=== PATIENT | female | born 1940 | race Caucasian/White ===

== ENCOUNTER 2020-09-04 09:22 | Inpatient (IN) ==
[2020-09-04 09:55] LABS: Basophils # (auto) 0.01 K/uL (0-0.2); Basophils % (auto) 0.1 %; Eosinophils # (auto) 0.04 K/uL (0-0.5); Eosinophils % (auto) 0.5 %; Hematocrit (blood only) 33.6 % (37-47); Immature Granulocytes # (auto) 0.02 K/uL (0.00-0.02); Immature Granulocytes % (auto) 0.3 %; Lymphocytes # (auto) 1.45 K/uL (1.2-3.4); Lymphocytes % (auto) 18.4 %; Mean Corpuscular Hemoglobin 26.8 pg (25-34); Mean Corpuscular Hgb Conc 32.7 g/dL (32-36); Mean Platelet Volume 9.5 fL (7.4-10.4); Monocytes # (auto) 0.59 K/uL (0.11-0.59); Monocytes % (auto) 7.5 %; Neutrophils # (auto) 5.78 K/uL (1.4-6.5); Neutrophils % (auto) 73.2 %; Platelet Count 318 K/uL (130-400); RDW Coefficient of Variation 15.2 % (11.5-14.5); White Blood Count 7.89 K/uL (4.8-10.8)
[2020-09-04] MEDS ORDERED: ONDANSETRON INJ 2 MG/ML 2 ML VIAL IV STA (10:05)
[2020-09-04 10:09] LABS: INR 1.1 (0.9-1.1); Partial Thromboplastin Ratio 0.9; Partial Thromboplastin Time 23.9 Seconds (21.0-31.0)
--- NOTE | 2020-09-04 10:09 | XRay Report ---
SINGLE VIEW PELVIS CLINICAL HISTORY: Fall. FINDINGS: An AP, portable, supine pelvic radiograph is correlated with radiographs of the left hip da traci 04/17/2008. The skeletal structures are osteopenic. There is no radiographic evidence of fracture involving the hips or bony pelvis. Sclerotic change is noted in the sacroiliac joints. There is mild degenerative joint space narrowing seen in both hips. Pelvic phleboliths are observed. The overlying soft tissues are within normal limits. IMPRESSION: No acute bony abnormality is identified. Electronically signed by: Glenroy Godwin M.D. 09/04/2020 10:08 AM
--- NOTE | 2020-09-04 10:12 | XRay Report ---
XR chest 1V portable CLINICAL HISTORY: Fall. COMPARISON STUDY: Chest radiograph and chest CT February 28, 2020. FINDINGS: Lung volumes are normal. There is no pneumothorax or pleural effusion. Linear bibasilar opa cities favor atelectasis. Cardiomediastinal silhouette is stable. Pulmonary vascularity is normal. IMPRESSION: No acute cardiopulmonary findings. No significant change in appearance of the chest. ACT 112: Negative or not required by law. Electronically signed by: Toni Lam M.D. 09/04/2020 10:11 AM
[2020-09-04 10:15] LABS: Albumin Level 3.3 gm/dl (3.4-5.0); BUN Creatinine Ratio 25.5 (10-20); Bilirubin Direct 0.2 mg/dl (0-0.2); Calcium 9.5 mg/dl (8.5-10.1); Creatinine Clr Calc Pharmacy 33.4 ml/min; Est GFR (African American) 44.1; Potassium 3.1 mmol/L (3.5-5.1)
[2020-09-04 10:23] LABS: D Dimer 1560 ug/L FEU (0-500)
[2020-09-04 10:30] LABS: Bilirubin,Total 0.6 mg/dl (0.2-1); Total Protein 7.6 gm/dl (6.4-8.2)
[2020-09-04] MEDS ORDERED: OPTIRAY 320 125ml IV ONE (11:29)
--- NOTE | 2020-09-04 11:43 | CT Scan Report ---
CT head/brain wo con CLINICAL HISTORY: Head pain status post trauma COMPARISON STUDY: 831 TECHNIQUE: Axial CT of the brain is performed from the vertex to the skull base. IV contrast was not administered for this examination. A dose lowering technique was utilized adhering to the principles of ALARA. CT DOSE: FINDINGS: No intra or extra-axial mass lesions are visualized. There is no CT evidence of acute cortical infarc tion. There is no evidence of midline shift. There is no acute hemorrhage. No calvarial fractures ar e visualized. There are patchy white matter hypodensities likely on a small vessel basis. There is no evidence of pathologic ventricular dilatation. There is no evidence of acute sinusitis. There are postsurgical changes involving both mandibles. IMPRESSION: No acute intracranial findings ACT 112: Negative or not required by law. Electronically signed by: Jg Mauricio M.D. 09/04/2020 11:42 AM
--- NOTE | 2020-09-04 11:46 | CT Scan Report ---
CT OF THE CERVICAL SPINE CLINICAL HISTORY: Neck pain status post trauma COMPARISON STUDY: 06/13/2012 CT DOSE: 1437.52 mGy.cm TECHNIQUE: CT scan of the cervical spine was performed from the skull base to the thoracic inlet. Vashti ges are reviewed in the axial, sagittal, and coronal planes. IV contrast was not administered for thi s examination. A dose lowering technique was utilized adhering to the principles of ALARA. FINDINGS: The visualized portions of the lung apices reveal no evidence of pneumothorax. Postsurgical changes involve both mandibles. The prevertebral soft tissues are normal. No fractures or subluxations are visualized. There are multilevel degenerative changes IMPRESSION: No evidence of acute fracture or traumatic subluxation. ACT 112: Negative or not required by law. Electronically signed by: Jg Mauricio M.D. 09/04/2020 11:44 AM
[2020-09-04 11:54] LABS: Influenza A virus by PCR Negative (Negative); Influenza B virus by PCR Negative (Negative)
--- NOTE | 2020-09-04 11:59 | CT Scan Report ---
CT ANGIOGRAM OF THE CHEST CLINICAL HISTORY: Chest pain. Elevated d-dimer. COMPARISON STUDY: February 28, 2020, chest x-ray performed September 04, 2020 TECHNIQUE: Following the IV administration of 120 mL of Optiray-320, CT angiogram of the thorax was p erformed from the thoracic inlet to the lung bases utilizing the pulmonary embolus protocol. Images a re reviewed in the axial, sagittal, and coronal planes. IV contrast was administered without complica tion. MIP imaging was performed. A dose lowering technique was utilized adhering to the principles o f ALARA. CT DOSE: FINDINGS: There is a minimally enlarged 13 x 12 mm right subpectoral lymph node. Mediastinal lymph nodes remain ing at the upper limits of normal in size. There was no evidence of thoracic aortic dilatation. There were no pulmonary artery filling defects to indicate acute pulmonary embolism. No pleural effusions are visualized. There is mild subpleural reticulation. There is stable subpleural right lower lobe atelectasis/scarri ng. There is stable biapical pleural and parenchymal scarring. IMPRESSION: 1. No evidence of acute pulmonary embolism 2. No evidence of acute parenchymal consolidation 3. Mildly enlarged right subpectoral lymph node ACT 112: Negative or not required by law. Electronically signed by: Jg Mauricio M.D. 09/04/2020 11:57 AM
--- NOTE | 2020-09-04 12:28 | Electrocardiogram Report ---
Test Reason : Blood Pressure : / mmHG Vent. Rate : 082 BPM Atrial Rate : 082 BPM P-R Int : 130 ms QRS Dur : 092 ms QT Int : 418 ms P-R-T Axes : 010 -07 002 degrees QTc Int : 488 ms Poor data quality, interpretation may be adversely affected Normal sinus rhythm Nonspecific ST and T wave abnormality Abnormal ECG When compared with ECG of 28-FEB-2020 15:10, No significant change Confirmed by Harmeet Ellsworth ([id number]) on 09/04/2020 12:27:45 PM Referred By: REFERRED SELF Confirmed By:Harmeet Ellsworth
[2020-09-04] MEDS ORDERED: PROMETHAZINE HCL 6.25 MG in SODIUM CHLORIDE 0.9% 50 ML IV STA ×2 (12:41→13:30)
[2020-09-04] MEDS ORDERED: SODIUM CHLORIDE 0.9% 1000ML 500 ML IV ONE (12:42)
[2020-09-04] MEDS ORDERED: MoRPHine SULFATE 2 MG/ML CARP IV STA ×2 (12:42→20:12)
[2020-09-04] MEDS ORDERED: POTASSIUM CHLORIDE 10 MEQ TABCR PO STA (12:42)
--- NOTE | 2020-09-04 12:42 | Emergency Department Note ---
History of Present Illness General Chief complaint: Illness Time Seen by Provider: 09/04/20 09:30 History of Present Illness Provider complaint: Nausea and vomiting Onset (ago): day(s) 3 Maximum Pain Intensity: 8 Current Pain Intensity: 8 Associated symptoms: + malaise, + nausea/vomiting and + weakness 80-year-old female presents emergency department for nausea vomiting diarrhea. She is presented to the emergency department with her daughter at bedside. Patient symptoms started on Wednesday after she fell. Unsure if she hit her head. Patient does state that she laid on the ground for several hours. Patient is re porting diffuse body aches at this time. Home Medications Medication Instructions Recorded Confirmed Type Atenolol (Tenormin) 25 mg PO DAILY #0 06/06/07 History Simvastatin (Zocor) 40 mg PO QPM #0 08/25/10 History Lisinopril (Prinivil) 20 mg PO DAILY #0 09/19/10 History ZOLPIDEM TARTRATE (AMBIEN) 10 mg PO HS PRN #0 tab 04/14/12 History MECLIZINE HCL (ANTIVERT) 25 mg PO TID PRN #0 tab 09/06/12 History NAPROXEN (Naprosyn) 500 mg PO BID PRN #0 tab 09/06/12 History BACLOFEN (LIORESAL) 10 mg PO TID #0 tab 05/04/14 History CALCIUM GLYCEROPHOSPHATE (PRELIEF) 1 tab PO TIDM PRN #0 05/04/14 History CITALOPRAM HYDROBROMIDE (CELEXA) 20 mg PO DAILY #0 tab 05/04/14 History FENTANYL (DURAGESIC) 50 mcg TRANSDERMAL CQ72HR #0 patch 05/04/14 History Hydrocodon/Acetaminophen 5MG/300MG 1 tab PO Q4H PRN #0 tab 05/04/14 History (VICODIN (5MG/300MG)) LORAZEPAM (ATIVAN) 1 mg PO Q6H PRN #0 tab 05/04/14 History Oxybutynin Chloride (Oxytrol) 1 patch TRANSDERMAL TW #0 patch 05/04/14 History Polyethylene (Miralax) 120 mg PO DAILY #0 05/04/14 History Promethazine HCl 25 mg PO Q4H PRN #0 tab 05/04/14 History SENNOSIDES-DOCUSATE SODIUM (SENNA) 1 tab PO DAILY #0 05/04/14 History famotidine 20 mg PO BID #20 tab 02/28/20 Rx Allergies Allergy/AdvReac Type Severity Reaction Status Date / Time Cephalosporins Allergy Intermediate KEFLEX = Verified 05/04/14 20:42 RASH solifenacin Allergy Unknown Jittery Unverified 05/04/14 20:42 Past Med/Surg History Medical History (Updated 09/04/20 @ 12:46 by Wilton Padron) Acquired claw toe of left foot Acquired claw toe of right foot No pertinent family history Pes planus of right foot Type 2 diabetes mellitus with diabetic neuropathy Surgical History (Updated 09/04/20 @ 12:39 by Wilton Padron) No pertinent past surgical history Social History Smoking Status: Former smoker Preferred Language: Setswana Feels Safe at Home: Yes Review of Systems A total of 10 systems reviewed and were otherwise negative Physical Exam Vital Signs Vital Signs - 24 hr 09/04/20 09:27 09/04/20 09:30 09/04/20 09:43 Temperature 37 C Temperature Source Oral Pulse Rate 86 89 Pulse Rate from SpO2 Sensor Respiratory Rate 13 24 Respiratory Effort / Characteristics Non-Labored Spontaneous Respiratory Depth Normal Respiratory Pattern Regular Blood Pressure 175/73 H 175/73 H Blood Pressure Mean 107 107 Blood Pressure Position Lying Pulse Oximetry 91 Oxygen Delivery Method Room Air Room Air Sepsis Recent Fever Within 48 Hours No Sepsis New/Unexplained Change in Mental Status No Sepsis Action Taken by Nursing No Action Required 09/04/20 10:24 09/04/20 10:30 09/04/20 11:00 Temperature Temperature Source Pulse Rate 85 79 73 Pulse Rate from SpO2 Sensor 85 80 73 Respiratory Rate 14 14 13 Respiratory Effort / Characteristics Respiratory Depth Respiratory Pattern Blood Pressure 186/92 H 168/77 H 159/75 H Blood Pressure Mean 123 107 103 Blood Pressure Position Pulse Oximetry 94 91 91 Oxygen Delivery Method Sepsis Recent Fever Within 48 Hours Sepsis New/Unexplained Change in Mental Status Sepsis Action Taken by Nursing 09/04/20 12:01 Temperature Temperature Source Pulse Rate 96 H Pulse Rate from SpO2 Sensor 95 H Respiratory Rate 23 Respiratory Effort / Characteristics Respiratory Depth Respiratory Pattern Blood Pressure 170/65 H Blood Pressure Mean 100 Blood Pressure Position Pulse Oximetry 93 Oxygen Delivery Method Sepsis Recent Fever Within 48 Hours Sepsis New/Unexplained Change in Mental Status Sepsis Action Taken by Nursing Physical Exam GENERAL: She is oriented to person, place, and time. She appears well-developed and well-nourished. She does not appear distressed. HENT: Exam performed. -Head: Normocephalic and atraumatic. -Right Ear: External ear normal. No mastoid tenderness. -Left Ear: External ear normal. No mastoid tenderness. -Mouth/Throat: The oropharynx is clear and moist. No trismus in the jaw. No dental abscesses or uvula swelling. No oropharyngeal exudate or tonsillar abscesses. EYES: Conjunctivae and EOM are normal. Pupils are equal, round, and reactive to light. Right eye exhibits no discharge. Left eye exhibits no discharge. No scleral icterus. NECK: Normal range of motion. Neck supple. No JVD present. No spinous process tenderness present. No carotid bruit present. No rigidity. No tracheal deviation and normal range of motion present. No Brudzinski's sign and no Kernig's sign noted. CV: Normal rate, regular rhythm, normal heart sounds and intact distal pulses. There is no peripheral edema. Palpable radial pulses bue. PULM/CHEST: Effort normal and breath sounds normal. No respiratory distress. No stridor. She has no wheezes. She has no rales. -Chest Wall: She exhibits no tenderness. ABD: The abdomen is soft. Bowel sounds are normal. She has no distension. No mass is present. There is no tenderness. There is no rebound, no guarding, no Sharma's sign and no tenderness at McBurney's point. Rovsig negative MUSC/SKEL: Normal range of motion. There is no peripheral edema, tenderness or deformity. LYMPH: No cervical adenopathy. NEURO: She is alert and oriented to person, place, and time. She has normal strength. No cranial nerve deficit or sensory deficit. Coordination and gait nor mal. GCS eye subscore is 4. GCS verbal subscore is 5. GCS motor subscore is 6. Cerebellar tests wnl. SKIN: Fentanyl patch over the left upper extremity. PSYCH: She has a normal mood and affect. Behavior is normal. Judgment and thought content normal. Course Course 929: The patient was evaluated in room A10. A complete history and physical exam was performed. Cardiac monitoring: An order was placed for continuous cardiac monitoring. The monitor shows a rate of 80 with sinus rhythm 1242: Vital signs stable. Labs show potassium 3.1.Replaced in the emergency department.D-dimer elevated 1560. Imaging shows no acute traumatic injury.CTA shows no PE.Creatinine [place] 3683. IV fluids started. Patient suzanne whitlock will be admitted to the hospitalist service for rhabdomyolysis. Discussed with Janette HUGHES who stated to admit to Dr. Marshall Administered Medications Discontinued Medications Ioversol (Optiray 320 125ml) 120 ml IV ONCE ONE Stop: 09/04/20 11:30 Last Admin: 09/04/20 11:30 Dose: 120 ml Documented by: [id number] Ondansetron HCl (Ondansetron Inj 2 Mg/Ml 2 Ml Vial) 4 mg IV NOW STA Stop: 09/04/20 10:06 Last Admin: 09/04/20 10:27 Dose: 4 mg Documented by: [id number] Medical Decision Making Laboratory Data Result diagrams: 09/04/20 09:35 09/04/20 09:35 Lab Results 09/04/20 09/04/20 09/04/20 Range/Units 09:35 09:35 09:35 WBC 7.89 (4.8-10.8) K/uL RBC 4.10 L (4.2-5.4) M/uL Hgb 11.0 L (12.0-16.0) g/dL Hct 33.6 L (37-47) % MCV 82.0 (80-100) fL MCH 26.8 (25-34) pg MCHC 32.7 (32-36) g/dL RDW Std Deviation 45.0 (36.4-46.3) fL RDW Coeff of Luis 15.2 H (11.5-14.5) % Plt Count 318 (130-400) K/uL MPV 9.5 (7.4-10.4) fL Immature Gran % (Auto) 0.3 % Neut % (Auto) 73.2 % Lymph % (Auto) 18.4 % [place] % (Auto) 7.5 % Eos % (Auto) 0.5 % Baso % (Auto) 0.1 % Neut # (Auto) 5.78 (1.4-6.5) K/uL Lymph # (Auto) 1.45 (1.2-3.4) K/uL [place] # (Auto) 0.59 (0.11-0.59) K/uL Eos # (Auto) 0.04 (0-0.5) K/uL Baso # (Auto) 0.01 (0-0.2) K/uL Immature Gran # (Auto) 0.02 (0.00-0.02) K/uL PT 11.0 (9.0-12.0) Seconds INR 1.1 (0.9-1.1) APTT 23.9 (21.0-31.0) Seconds PTT Ratio 0.9 D-Dimer 1560 H* (0-500) ug/L FEU Sodium 136 (136-145) mmol/L Potassium 3.1 L (3.5-5.1) mmol/L Chloride 93 L (98-107) mmol/L Carbon Dioxide 32 (21-32) mmol/L Anion Gap 11.0 (3-11) BUN 34 H (7-18) mg/dl Creatinine 1.32 H (0.6-1.2) mg/dl Est Cr Clr Drug Dosing 33.4 ml/min Est GFR ( Amer) 44.1 Est GFR (Non-Af Amer) 38.0 BUN/Creatinine Ratio 25.5 H (10-20) Glucose 96 (70-99) mg/dl POC Glucose (70-99) mg/dl Calcium 9.5 (8.5-10.1) mg/dl Total Bilirubin 0.6 (0.2-1) mg/dl Direct Bilirubin 0.2 (0-0.2) mg/dl AST 160 H (15-37) U/L ALT 63 (12-78) U/L Alkaline Phosphatase 79 (45-117) U/L Total Creatine Kinase 3683 H (26-192) U/L Troponin I (0-0.045) ng/ml Total Protein 7.6 (6.4-8.2) gm/dl Albumin 3.3 L (3.4-5.0) gm/dl Lipase 46 L (73-393) U/L COVID-19 Eval Order Influ A Molecular Assay (Negative) Influ B Molecular Assay (Negative) SARS-CoV-2, RNA, NAAT (NEGATIVE) 02/10/21 02/10/21 02/10/21 Range/Units 09:35 09:49 10:15 WBC (4.8-10.8) K/uL RBC (4.2-5.4) M/uL Hgb (12.0-16.0) g/dL Hct (37-47) % MCV (80-100) fL MCH (25-34) pg MCHC (32-36) g/dL RDW Std Deviation (36.4-46.3) fL RDW Coeff of Luis (11.5-14.5) % Plt Count (130-400) K/uL MPV (7.4-10.4) fL Immature Gran % (Auto) % Neut % (Auto) % Lymph % (Auto) % [place] % (Auto) % Eos % (Auto) % Baso % (Auto) % Neut # (Auto) (1.4-6.5) K/uL Lymph # (Auto) (1.2-3.4) K/uL [place] # (Auto) (0.11-0.59) K/uL Eos # (Auto) (0-0.5) K/uL Baso # (Auto) (0-0.2) K/uL Immature Gran # (Auto) (0.00-0.02) K/uL PT (9.0-12.0) Seconds INR (0.9-1.1) APTT (21.0-31.0) Seconds PTT Ratio D-Dimer Cancelled (0-500) ug/L FEU Sodium (136-145) mmol/L Potassium (3.5-5.1) mmol/L Chloride (98-107) mmol/L Carbon Dioxide (21-32) mmol/L Anion Gap (3-11) BUN (7-18) mg/dl Creatinine (0.6-1.2) mg/dl Est Cr Clr Drug Dosing ml/min Est GFR ( Amer) Est GFR (Non-Af Amer) BUN/Creatinine Ratio (10-20) Glucose (70-99) mg/dl POC Glucose 106 H (70-99) mg/dl Calcium (8.5-10.1) mg/dl Total Bilirubin (0.2-1) mg/dl Direct Bilirubin (0-0.2) mg/dl AST (15-37) U/L ALT (12-78) U/L Alkaline Phosphatase (45-117) U/L Total Creatine Kinase (26-192) U/L Troponin I 0.022 (0-0.045) ng/ml Total Protein (6.4-8.2) gm/dl Albumin (3.4-5.0) gm/dl Lipase (73-393) U/L COVID-19 Eval Order Influ A Molecular Assay (Negative) Influ B Molecular Assay (Negative) SARS-CoV-2, RNA, NAAT (NEGATIVE) 09/04/20 09/04/20 09/04/20 Range/Units 10:20 10:20 10:20 WBC (4.8-10.8) K/uL RBC (4.2-5.4) M/uL Hgb (12.0-16.0) g/dL Hct (37-47) % MCV (80-100) fL MCH (25-34) pg MCHC (32-36) g/dL RDW Std Deviation (36.4-46.3) fL RDW Coeff of Luis (11.5-14.5) % Plt Count (130-400) K/uL MPV (7.4-10.4) fL Immature Gran % (Auto) % Neut % (Auto) % Lymph % (Auto) % [place] % (Auto) % Eos % (Auto) % Baso % (Auto) % Neut # (Auto) (1.4-6.5) K/uL Lymph # (Auto) (1.2-3.4) K/uL [place] # (Auto) (0.11-0.59) K/uL Eos # (Auto) (0-0.5) K/uL Baso # (Auto) (0-0.2) K/uL Immature Gran # (Auto) (0.00-0.02) K/uL PT (9.0-12.0) Seconds INR (0.9-1.1) APTT (21.0-31.0) Seconds PTT Ratio D-Dimer (0-500) ug/L FEU Sodium (136-145) mmol/L Potassium (3.5-5.1) mmol/L Chloride (98-107) mmol/L Carbon Dioxide (21-32) mmol/L Anion Gap (3-11) BUN (7-18) mg/dl Creatinine (0.6-1.2) mg/dl Est Cr Clr Drug Dosing ml/min Est GFR ( Amer) Est GFR (Non-Af Amer) BUN/Creatinine Ratio (10-20) Glucose (70-99) mg/dl POC Glucose (70-99) mg/dl Calcium (8.5-10.1) mg/dl Total Bilirubin (0.2-1) mg/dl Direct Bilirubin (0-0.2) mg/dl AST (15-37) U/L ALT (12-78) U/L Alkaline Phosphatase (45-117) U/L Total Creatine Kinase (26-192) U/L Troponin I (0-0.045) ng/ml Total Protein (6.4-8.2) gm/dl Albumin (3.4-5.0) gm/dl Lipase (73-393) U/L COVID-19 Eval [facility] Influ A Molecular Assay Negative (Negative) Influ B Molecular Assay Negative (Negative) SARS-CoV-2, RNA, NAAT NEGATIVE (NEGATIVE) Imaging Data Radiologist's Impression: CT ANGIOGRAM OF THE CHEST CLINICAL HISTORY: Chest pain. Elevated d-dimer. COMPARISON STUDY: February 28, 2020, chest x-ray performed September 04, 2020 TECHNIQUE: Following the IV administration of 120 mL of Optiray-320, CT angiogram of the thorax was performed from the thoracic inlet to the lung bases utilizing the pulmonary embolus protocol. Images are reviewed in the axial, sagittal, and coronal planes. IV contrast was administered without complication. MIP imaging was performed. A dose lowering technique was utilized adhering to the principles of ALARA. CT DOSE: FINDINGS: There is a minimally enlarged 13 x 12 mm right subpectoral lymph node. Mediastinal lymph nodes remaining at the upper limits of normal in size. There was no evidence of thoracic aortic dilatation. There were no pulmonary artery filling defects to indicate acute pulmonary embolism. No pleural effusions are visualized. There is mild subpleural reticulation. There is stable subpleural right lower lobe atelectasis/scarring. There is stable biapical pleural and parenchymal scarring. IMPRESSION: 1. No evidence of acute pulmonary embolism 2. No evidence of acute parenchymal consolidation 3. Mildly enlarged right subpectoral lymph node ACT 112: Negative or not required by law. Electronically signed by: Jg Mauricio M.D. 09/04/2020 11:57 AM Dictated: 09/04/20 1150 Transcribed: 09/04/20 1150 SINGLE VIEW PELVIS CLINICAL HISTORY: Fall. FINDINGS: An AP, portable, supine pelvic radiograph is correlated with ra diographs of the left hip dated 04/17/2008. The skeletal structures are osteopenic. There is no radiographic evidence of fracture involving the hips or bony pelvis. Sclerotic change is noted in the sacroiliac joints. There is mild degenerative joint space narrowing seen in both hips. Pelvic phleboliths are observed. The overlying soft tissues are within normal limits. IMPRESSION: No acute bony abnormality is identified. Electronically signed by: Glenroy Godwin M.D. 09/04/2020 10:08 AM Dictated: 09/04/20 1006 Transcribed: 09/04/20 1006 XR chest 1V portable CLINICAL HISTORY: Fall. COMPARISON STUDY: Chest radiograph and chest CT February 28, 2020. FINDINGS: Lung volumes are normal. There is no pneumothorax or pleural effusion. Linear bibasilar opacities favor atelectasis. Cardiomediastinal silhouette is stable. Pulmonary vascularity is normal. IMPRESSION: No acute cardiopulmonary findings. No significant change in appearance of the chest. ACT 112: Negative or not required by law. Electronically signed by: Toni Lam M.D. 09/04/2020 10:11 AM Dictated: 09/04/20 1008 Transcribed: 09/04/[address] head/brain wo con CLINICAL HISTORY: Head pain status post trauma COMPARISON STUDY: 831 TECHNIQUE: Axial CT of the brain is performed from the vertex to the skull base. IV contrast was not administered for this examination. A dose lowering technique was utilized adhering to the principles of ALARA. CT DOSE: FINDINGS: No intra or extra-axial mass lesions are visualized. There is no CT evidence of acute cortical infarction. There is no evidence of midline shift. There is no acute hemorrhage. No calvarial fractures are visualized. There are patchy white matter hypodensities likely on a small vessel basis. There is no evidence of pathologic ventricular dilatation. There is no evidence of acute sinusitis. There are postsurgical changes invo lving both mandibles. IMPRESSION: No acute intracranial findings ACT 112: Negative or not required by law. Electronically signed by: Jg Mauricio M.D. 09/04/2020 11:42 AM Dictated: 09/04/20 1140 Transcribed: 09/04/[address] OF THE CERVICAL SPINE CLINICAL HISTORY: Neck pain status post trauma COMPARISON STUDY: 06/13/2012 CT DOSE: 1437.52 mGy.cm TECHNIQUE: CT scan of the cervical spine was performed from the skull base to the thoracic inlet. Images are reviewed in the axial, sagittal, and coronal planes. IV contrast was not administered for this examination. A dose lowering technique was utilized adhering to the principles of ALARA. FINDINGS: The visualized portions of the lung apices reveal no evidence of pneumothorax. Postsurgical changes involve both mandibles. The prevertebral soft tissues are normal. No fractures or subluxations are visualized. There are multilevel degenerative changes IMPRESSION: No evidence of acute fracture or traumatic subluxation. ACT 112: Negative or not required by law. Electronically signed by: Jg Mauricio M.D. 09/04/2020 11:44 AM Dictated: 09/04/20 1142 Transcribed: 09/04/20 1142 ECG Data Indication: + vomiting Rate (beats per minute): 82 Rhythm: + normal sinus ECG Intervals/blocks: + Normal QRS, + Normal VA and + Normal QT-c ECG ST segments: + Normal ST segments MDM Narrative 0930: The patient was evaluated in room A10. A complete history and physical exam was performed. Cardiac monitoring: An order was placed for continuous cardiac monitoring. The monitor shows a rate of 80 with sinus rhythm 1242: Vital signs stable. Labs show potassium 3.1.Replaced in the emergency department.D-dimer elevated 1560. Imaging shows no acute traumatic injury.CTA shows no PE.Creatinine kinase elevated at 3683. IV fluids started. Patient will will be admitted to the hospitalist service for rhabdomyolysis. Discussed with Janette HUGHES who stated to admit to Dr. Marshall Impression & Plan Rhabdomyolysis Discharge Plan Visit Data Chief Complaint: Illness ED Provider: Wilton Padron Discharge Problem: Rhabdomyolysis Patient Disposition: Admitted As Inpatient Forms Stand Alone Forms: [facility] Prescriptions Prescriptions: No Action Atenolol (Tenormin) 25 MG tablet 25 mg PO DAILY Qty: 0 RF: 0 Simvastatin (Zocor) 20 MG tablet 40 mg PO QPM Qty: 0 RF: 0 Lisinopril (Prinivil) 10 MG tablet 20 mg PO DAILY Qty: 0 RF: 0 ZOLPIDEM TARTRATE (AMBIEN) 10 MG tablet 10 mg PO HS PRN Qty: 0 RF: 0 MECLIZINE HCL (ANTIVERT) 25 MG tablet 25 mg PO TID PRN Qty: 0 RF: 0 NAPROXEN (Naprosyn) 500 MG tablet 500 mg PO BID PRN Qty: 0 RF: 0 BACLOFEN (LIORESAL) 10 MG tablet 10 mg PO TID Qty: 0 RF: 0 CITALOPRAM HYDROBROMIDE (CELEXA) 20 MG tablet 20 mg PO DAILY Qty: 0 RF: 0 FENTANYL (DURAGESIC) 50 MCG/ DIS 50 mcg Transdermal CQ72HR Qty: 0 RF: 0 Hydrocodon/Acetaminophen 5MG/300MG (VICODIN (5MG/300MG)) 1 TAB tablet 1 tab PO Q4H PRN (Reason: Pain) Qty: 0 RF: 0 LORAZEPAM (ATIVAN) 1 MG tablet 1 mg PO Q6H PRN (Reason: Anxiety/Insomnia) Qty: 0 RF: 0 Polyethylene (Miralax) 120 GM solution 120 mg PO DAILY Qty: 0 RF: 0 Promethazine HCl 25 MG tablet 25 mg PO Q4H PRN (Reason: Nausea or Vomiting) Qty: 0 RF: 0 SENNOSIDES-DOCUSATE SODIUM (SENNA) 1 TAB tablet 1 tab PO DAILY Qty: 0 RF: 0 CALCIUM GLYCEROPHOSPHATE (PRELIEF) 1 TAB tablet 1 tab PO TIDM PRN (Reason: Bladder pain) Qty: 0 RF: 0 Oxybutynin Chloride (Oxytrol) 3.9 MG/24 HR TRANSDERM SYS 1 patch Transdermal TW Qty: 0 RF: 0 famotidine 20 mg tablet 20 mg PO BID Qty: 20 RF: 0 Referrals Referrals: Ezequiel Graves MD [Primary Care Provider] - Discharge Problem: Rhabdomyolysis Qualifiers: Rhabdomyolysis type: traumatic Encounter type: initial encounter Qualified Co de(s): T79.6XXA - Traumatic ischemia of muscle, initial encounter
[2020-09-04] MEDS ORDERED: ACETAMINOPHEN 1,000 MG/100 ML VIAL IV STA (12:58)
[2020-09-04] MEDS ORDERED: PROMETHAZINE 6.25 MG/50.25 ML BAG IV ONE (13:00)
[2020-09-04] MEDS ORDERED: MAGNESIUM HYDROXIDE SUSP 30 ML UDC PO PRN (13:21)
[2020-09-04] MEDS ORDERED: POLYETHYLENE (MIRALAX) 17 GM PACK PO PRN (13:21)
[2020-09-04] MEDS ORDERED: ALUMINUM/MAGNESIUM SUSP 30 ML UDC PO PRN (13:21)
--- NOTE | 2020-09-04 13:40 | History & Physical Report ---
Date of Service September 04, 2020 Assessment & Plan (1) Fall: (2) Nausea & vomiting: (3) Loss of consciousness for 30 minutes to 24 hours: This is an 80-year-old female who has significant past medical history of diet- controlled T2DM, HTN, HLD, CKD stage III baseline creatinine 1.1-1.2, chronic interstitial cystitis, chronic neck pain, history of PE in the 30s during , depression with anxiety who presents ED secondary to fall 2 days ago and nausea and vomiting for 2 days. Pt on ground for unknown duration but appears ~ 12hrs, no pre syncopal symptoms and does not recall events Likely syncopal episode of some sort with loss of bowel/bladder ddx: arrhythmia, seizure activity, fall with hit head/mild TBI (although no evidence of trauma to head/CT normal), excess pain medication, orthostatic hypotension among others CT head negative for acute abn or cva admit to med tele consult neuro/pain management obtain echocardiogram, b/l carotid doppler, EEG given syncope episode full body search for additional pain patch then replace current patch ? withdrawal due to missed meds orthostatic blood pressures IVF clear liquid diet and advance as tolerated (4) Rhabdomyolysis: (5) Acute worsening of stage 3 chronic kidney disease: baseline cr 1.0-1.2 bun/cr 34 and 1.32 likely pre renal in setting of poor intake and on floor with rhabdo 500ml IVF bolus ordered then 80cc NSS + 20meq KCL repeat bmp/ck in a.m. hold statin, losartan, triamterene/hctz avoid nephrotoxic agents (6) Hypokalemia: K 3.1 K-rider 10meq x 2 ordered IVF + supplemental KCl as well unable to tolerate PO currently - when able to will supplement orally bmp @ 1800 (7) Chronic neck pain: pt with chronic neck pain does not follow pain management, monitored by PCP on fentanyl patc 75mcg q72hr, prn hydrocodone/apap 10mg-325, gabapentin, cymbalta and nortriptyline - per oupt notes mostly well controlled hold prn baclofen for now give multiple sedating medications pt c/o significant pain with n/v will change fentanyl patch now, received IV morphine 2mg @ 1330, also 1g IV APAP ordered continue prn hydrocodone, add lidocaine patch and heat consult pain management pt is on significant regimen given advanced age - appreciate pain management input ? if n/v are associated withdrawal from above especially in setting of no meds for 2 days regimen may have also contributed to fall/syncopal episode?? (8) Prolonged QT interval: qtc 488ms today on multiple qtc prolonging agents avoid qtc prolonging meds if able (9) T2DM (type 2 diabetes mellitus): diet controlled, last a1c 6.8 07/04/2020 monitor fasting bsg (10) HTN (hypertension): bp elevated, likely in setting of missed medications continue atenolol hold losartan and triamterene/hctz 2/2 to merced - resume when able (11) HLD (hyperlipidemia): on statin hold in setting of rhabdo (12) DVT prophylaxis: Sq heparin DNR Disposition: admit to med tele Follow up: PCP Dr. Graves upon discharge, also f/u abn finding on Chest CTA + R subpectoral lymph node Pt was seen and examined in collaboration with Dr. Marshall, please see addendum Admission and Anticipated Discharge Date Admission Date: September 04, 2020 History of Present Illness Chief Complaint: Fall x 2 days ago; N/V x 2 days. Primary Care Provider: Ezequiel Graves MD This is an 80-year-old female who has significant past medical history of diet- controlled T2DM, HTN, HLD, CKD stage III baseline creatinine 1.1-1.2, chronic interstitial cystitis, chronic neck pain, history of PE in the 30s during , depression with anxiety who presents ED secondary to fall 2 days ago and nausea and vomiting for 2 days. On Wednesday patient last remembers talking to her friend at approximately 11 AM. She then woke up on bathroom floor at approximately 3-4 AM the following morning. She is unsure how she got there and she does not recall events prior to that. She knows she fell but unsure if she had any presyncopal symptoms or possible seizure-like activity. Event was unwitnessed. When she woke up she did soil herself and was wet from urine. She was able to get up herself and take half of a bath. She did not want to get her fentanyl patch wet. Ever since lying on the ground she has been nauseated and dry heaving and in significant pain. She also has had multiple loose bowel movements, but this morning had a regular BM. Prior to fall she denies any recent illness, fever, chills, sweats, dizziness, lightheadedness, chest pain, shortness of breath, cough, URI symptoms, dysuria, increased urgency or frequency with urination, melena or hematochezia. She does have chronic, "bladder pain." She has chronic interstitial cystitis. She also suffers from chronic pain and is on 75 mcg fentanyl patch every 72 hours. She is unsure when her last patch was placed, but did know she needs a new one. She also takes as needed Lortab approximately once daily. She is also on Cymbalta, gabapentin and nortriptyline. She states she has not taken any medication for the past 2 days. She also has not ate or drank. Has never had similar event in past. In ED she remained hemodynamically stable. She was found to have mild MERCED with elevation in Cr to 1.3, rhabdomyolysis with CK 3683, elevated ast 160, K 3.1, h/h 11.0 and 33.6 and d dimer 1560. Head CT was without acute abnormality. Cervical spine CT revealed multiple degenerative changes but no acute abnormality. Chest CT was negative for PE but did show right enlarged subpectoral lymph node. Pelvis x- ray was negative for fracture. In ED she received IV Zofran with 2 mg of IV morphine. Daughter at bedside. Allergies Allergy/AdvReac Type Severity Reaction Status Date / Time Cephalosporins Allergy Intermediate KEFLEX = Verified 05/04/14 20:42 RASH solifenacin Allergy Unknown Jittery Unverified 05/04/14 20:42 Home Medications Medication Instructions Recorded Confirmed Type alendronate 70 mg PO WK 09/04/20 09/04/20 History atenolol 50 mg PO DAILY 09/04/20 09/04/20 History atorvastatin 40 mg PO DAILY 09/04/20 09/04/20 History baclofen 10 mg PO HS PRN 09/04/20 09/04/20 History calcium glycerophosphate 65 mg PO QID 09/04/20 09/04/20 History citalopram 20 mg PO DAILY 09/04/20 09/04/20 History duloxetine [Cymbalta] 20 mg PO DAILY 09/04/20 09/04/20 History estradiol 1 g VAGINAL 2XWK 09/04/20 09/04/20 History fentanyl 1 patch TRANSDERMAL Q72H 09/04/20 09/04/20 History furosemide 40 mg PO DAILY PRN 09/04/20 09/04/20 History gabapentin 100 mg PO BID PRN 09/04/20 09/04/20 History gabapentin 300 mg PO HS 09/04/20 09/04/20 History hydrocodone-acetaminophen 1 tab PO Q6H PRN 09/04/20 09/04/20 History lorazepam 0.5 mg PO BID PRN 09/04/20 09/04/20 History losartan 100 mg PO DAILY 09/04/20 09/04/20 History jrgl-[id number]-ecnv-m ysat-et-fyviv 81.6 tab PO DAILY PRN 09/04/20 09/04/20 History nortriptyline 50 mg PO HS 09/04/20 09/04/20 History omeprazole 40 mg PO DAILY 09/04/20 09/04/20 History polyethylene glycol 3350 17 g PO DAILY 09/04/20 09/04/20 History triamterene-hydrochlorothiazid 1 cap PO DAILY 09/04/20 09/04/20 History Past Med/Surg History Medical History (Updated 09/04/20 @ 14:17 by Janette Kendall PA-C) Anemia Chronic interstitial cystitis Chronic neck pain CKD (chronic kidney disease) stage 3, GFR 30-59 ml/min Depression with anxiety History of Lyme disease History of pulmonary embolism in 30s during , hypercoag w/u negative HLD (hyperlipidemia) HTN (hypertension) T2DM (type 2 diabetes mellitus) Surgical History (Updated 09/04/20 @ 13:55 by Janette Kendall PA-C) History of bilateral salpingo-oophorectomy (BSO) History of cystoscopy History of foot surgery R 2/2 to claw foot History of hysterectomy History of mandibular surgery hx of TMJ surgeries x 9 with eventual total joint replacement Family History (Updated 09/04/20 @ 13:55 by Janette Kendall PA-C) Mother Myocardial infarction Coronary heart disease Hx of CABG Brother Diabetes Father Stroke Social History (Updated 09/04/20 @ 13:56 by Janette Kendall PA-C) Smoking Status: Never smoker Tobacco Type: Cigarettes packs per day: 0.5; Years Smoked: 8; Cigarettes Per Day: 10; Hx Alcohol Use: No Hx Substance Use: No Preferred Language: Macedonian Communication Ability: [employer] Required: No Beliefs That Will Affect Care: None Current Living Situation: Alone current occupational status: retired current occupation: retired RN Feels Safe at Home: Yes Safety Concerns: Feels Safe At This Time Assistive Devices: Cane Review of Systems Review of Systems: All systems reviewed & are unremarkable except as noted in HPI & below Physical Exam Physical Exam: Constitutional: Elderly, F, appears in pain and is retching, lying in left lateral decub position, WD/WN, vitals as above, answers questions approp Head: Normocephalic, Atraumatic Eyes: PERRL, conjunctivae normal, anicteric sclerae ENMT: external ear and nose normal, oropharynx normal Neck: trachea midline, no thyromegaly normal visual inspection Respiratory: normal respiratory effort, lungs clear to auscultation, no wheeze, rales, rhonchi. Normal insp/exp effort, no accessory muscle use Cardiovascular: RRR, 2/6 roland noted RUSB, no murmur, no trace pre tibial edema Vessels: no JVD or carotid bruit Chest: normal inspection of chest Abdomen: normal bowel sounds, soft, nontender, no hepatosplenomegaly Musculoskeletal: no cyanosis or clubbing, extremities motor strength 5/5, pain to palpation to paraspinal musculature of neck but otherwise full rom Skin: no rashes, warm and dry normal turgor Neurologic: PERRL, EOMI, accommodation nl, no face palsy, no dysarthria CN's II-XI intact bilaterally and moves all extremities Psychiatric: A+Ox3, dysthymic affect : deferred Results & Data Results & Data ([facility]) Vital Signs (Past 12 Hours) Vital Signs Temp Pulse Resp BP Pulse Ox 09/04/20 12:01 96 H 23 170/65 H 93 09/04/20 11:00 73 13 159/75 H 91 09/04/20 10:30 79 14 168/77 H 91 09/04/20 10:24 85 14 186/92 H 94 09/04/20 09:30 89 24 175/73 H 09/04/20 09:27 37 C 86 13 175/73 H 91 Diagnostic Findings Chest CTA: IMPRESSION: 1. No evidence of acute pulmonary embolism 2. No evidence of acute parenchymal consolidation 3. Mildly enlarged right subpectoral lymph node Pelvis Xray: IMPRESSION: No acute bony abnormality is identified. CXR: IMPRESSION: No acute cardiopulmonary findings. No significant change in appearance of the chest. Head CT: IMPRESSION: No acute intracranial findings C spine CT: IMPRESSION: No evidence of acute fracture or traumatic subluxation. Medications Administered Potassium Chloride (K Lauri / Wtr) 10 meq in 100 mls @ 100 mls/hr IV Q1H ROMY Stop: 09/04/20 15:44 Last Admin: 09/04/20 13:50 Dose: 100 mls/hr Documented by: [id number] Miscellaneous (Fentanyl Patch Remove & Waste) 1 ea N/A Q3D ROMY Stop: 10/04/20 13:29 Last Admin: 09/04/20 13:55 Dose: 1 ea Documented by: [id number] Cosigned by: [id number] Discontinued Medications Sodium Chloride (Nss 1000ml) 500 mls @ 999 mls/hr IV .Q31M ONE Stop: 09/04/20 13:12 Last Admin: 09/04/20 13:28 Dose: 999 mls/hr Documented by: [id number] Acetaminophen (Ofirmev) 1,000 mg in 100 mls @ 400 mls/hr IV NOW STA Stop: 09/04/20 13:12 Last Infusion: 09/04/20 13:44 Dose: 0 mls/hr Documented by: [id number] Admin: 09/04/20 13:28 Dose: 400 mls/hr Documented by: [id number] Promethazine HCl 6.25 mg/ (Sodium Chloride) 50.25 mls @ 201 mls/hr IV NOW STA Stop: 09/04/20 13:44 Last Admin: 09/04/20 13:50 Dose: 201 mls/hr Documented by: [id number] Ioversol (Optiray 320 125ml) 120 ml IV ONCE ONE Stop: 09/04/20 11:30 Last Admin: 09/04/20 11:30 Dose: 120 ml Documented by: [id number] Morphine Sulfate (Morphine Sulfate 2 Mg/Ml Carp) 2 mg IV NOW STA Stop: 09/04/20 12:43 Last Admin: 09/04/20 13:28 Dose: 2 mg Documented by: [id number] Ondansetron HCl (Ondansetron Inj 2 Mg/Ml 2 Ml Vial) 4 mg IV NOW STA Stop: 09/04/20 10:06 Last Admin: 09/04/20 10:27 Dose: 4 mg Documented by: [id number] Potassium Chloride (Potassium Chloride 10 Meq Tabcr) 40 meq PO NOW STA Stop: 09/04/20 12:43 Last Admin: 09/04/20 13:45 Dose: Not Given Documented by: [id number] ECG Rate (beats per minute): 82 Rhythm: normal sinus Findings: + prolonged QT (qtc 488ms) COVID-19 Results Results COVID-19 Adm Lab Results: RBC 4.10 M/uL (4.2-5.4) L 09/04/20 WBC 7.89 K/uL (4.8-10.8) 09/04/20 Hgb 11.0 g/dL (12.0-16.0) L 09/04/20 Hct 33.6 % (37-47) L 09/04/20 Plt Count 318 K/uL (130-400) 09/04/20 Neutrophils (%) (Auto) 73.2 % 09/04/20 Lymphocytes (%) (Auto) 18.4 % 09/04/20 Monocytes # (Auto) 0.59 K/uL (0.11-0.59) 09/04/20 Eosinophils # (Auto) 0.04 K/uL (0-0.5) 09/04/20 Immature Granulocyte % (Auto) 0.3 % 09/04/20 Neutrophils # (Auto) 5.78 K/uL (1.4-6.5) 09/04/20 Lymphocytes # (Auto) 1.45 K/uL (1.2-3.4) 09/04/20 Monocytes # (Auto) 0.59 K/uL (0.11-0.59) 09/04/20 Eosinophils # (Auto) 0.04 K/uL (0-0.5) 09/04/20 Basophils # (Auto) 0.01 K/uL (0-0.2) 09/04/20 Immature Granulocyte # (Auto) 0.02 K/uL (0.00-0.02) 09/04/20 Na 136 mmol/L (136-145) 09/04/20 K 3.1 mmol/L (3.5-5.1) L 09/04/20 Cl 93 mmol/L (98-107) L 09/04/20 CO2 32 mmol/L (21-32) 09/04/20 Anion Gap 11.0 (3-11) 09/04/20 BUN 34 mg/dl (7-18) H 09/04/20 Creatinine 1.32 mg/dl (0.6-1.2) H 09/04/20 BUN/Creatinine Ratio 25.5 (10-20) H 09/04/20 Glucose Level 96 mg/dl (70-99) 09/04/20 Ca 9.5 mg/dl (8.5-10.1) 09/04/20 Total Bilirubin 0.6 mg/dl (0.2-1) 09/04/20 Direct Bilirubin 0.2 mg/dl (0-0.2) 09/04/20 AST/SGOT 160 U/L (15-37) H 09/04/20 ALT/SGPT 63 U/L (12-78) 09/04/20 Alkaline Phosphatase 79 U/L (45-117) 09/04/20 Total Protein 7.6 gm/dl (6.4-8.2) 09/04/20 Albumin 3.3 gm/dl (3.4-5.0) L 09/04/20 Total CK 3683 U/L (26-192) H 09/04/20 Troponin I 0.022 ng/ml (0-0.045) 09/04/20 D-Dimer 1560 ug/L FEU (0-500) H* 09/04/20 PTT 23.9 Seconds (21.0-31.0) 09/04/20 INR 1.1 (0.9-1.1) 09/04/20 SARS-CoV-2, RNA, NAAT NEGATIVE (NEGATIVE) 09/04/20 Chest X-Ray 09/04/20 Code Status & VTE Plan Code Status DNR VTE Prophylaxis Plan VTE Prophylaxis will be ordered: Yes Supervising Physician Co-Signing Physician Notes Pt seen and examined by me, care coordinated with Janette Kendall PA-C, pls refer to her note above fo further detail. Pt is an 80 y/o F w/ diet-controlled T2DM, HTN, HLD, CKD stage III baseline creatinine 1.1-1.2, chronic interstitial cystitis, chronic neck pain, history of PE in the 30s during , depression with anxiety who presents secondary to fall 2 days ago and nausea and vomiting for 2 days. Patient los consciousness as she does not remember how she fell and was on ground ~12 hrs. she lives alone and woke up by herself, finding herself incontinent of urine and stool. Event was unwitnessed. She reports feeling fine prior to that and remebers talking to her friend on the phone prior to the event. She has chronic pain 2/2 interstitial cystitis and chronic neck pain. Uses 75 mcg fentanyl patch every 72 hours. Lortab approximately once daily. She is also on Cymbalta, gabapentin and nortriptyline. She states she has not taken any medication for the past 2 days. She also has not ate or drank. In ED she remained hemodynamically stable, was found to have mild MERCED with elevation in Cr to 1.3, rhabdomyolysis with CK 3683, elevated ast 160, K 3.1, h/h 11.0 and 33.6 and d dimer 1560. Head CT was without acute abnormality. Cervical spine CT revealed multiple degenerative changes but no acute abnormality. Chest CT was negative for PE. Currently pt is more comfortable after receiving 2mg of IV morphione, previously reportedly quite uncomfortable, in pain, and w/ nausea. She is able to answer questions appropriately. Lung sounds clear, no wheezing, rhonchi,crackles. Heart sounds regular, syst. murmur 3/6 noted. Abdomen soft, nontender nondistended. Bur reports chronic "bladder pain". Moves extremities. Plan to do full body search for accidental extra fentanyl patch, then will place new fentanyl patch. Discussed w/ Dr. Calix (pain management). Will closely monitor on tele and on cont. pulse ox. Pt has been using the same dose of opioids for years and so this event seems very unusual/not likely d/t pain meds if taken correctly. Pt reports no changes in medication. Will obtain UDS as well. Further work-up of LOC as above - EEG, echo, carotid US, infectious work- up, will further discuss w/ neurology if any further testing warranted. Chacho Marshall MD
[2020-09-04] MEDS: POTASSIUM CHLORIDE / WTR 10 MEQ/100 ML PLCT IV SCH ×2 (13:50→15:52)
[2020-09-04] MEDS: LIDOCAINE 5% 1 PATCH TD SCH (13:58)
[2020-09-04] MEDS ORDERED: fentaNYL 75 MCG/HR TDSY TD SCH (14:00)
[2020-09-04] MEDS: NSS + 20MEQ KCL 20 MEQ/1,000 ML BAG IV SCH (15:52)
--- NOTE | 2020-09-04 15:53 | Ultrasound Report ---
BILATERAL CAROTID DOPPLER STUDY HISTORY: syncope COMPARISON: None. TECHNIQUE: Real-time, grayscale, and color Doppler sonography of the carotid arteries was performed. Imaging reviewed in the transverse and longitudinal planes. All measurements were calculated based on NASCET criteria. FINDINGS: Antegrade flow is seen in the bilateral vertebral arteries. The brachial pressures are hemodynamically similar. Moderate right and mild left carotid bifurcation calcification. The peak systolic velocity within the right ICA is 135 cm/s, proximally. The right systolic ratio is 2.3. The peak systolic velocity within the left ICA is 100 cm/s. The left systolic ratio is 1.6. IMPRESSION: 1. Approximately 50-69% stenosis within the proximal right internal carotid artery due to the calcifi ed plaque. 2. No significant stenosis within the left carotid arteries. ACT 112: Negative or not required by law. Electronically signed by: Moo Barber M.D. 09/04/2020 3:52 PM
[2020-09-04] MEDS ORDERED: NALOXONE HCL 0.4 MG/1 ML VIAL/CARP IV PRN (15:58)
[2020-09-04] MEDS: HEPARIN SOD 5,000 UNIT/0.5 ML VIAL SQ SCH ×2 (16:26→21:59)
[2020-09-04] MEDS: CHECK fentaNYL PATCH PLACEMENT SCH (16:27)
[2020-09-04] MEDS: ONDANSETRON INJ 2 MG/ML 2 ML VIAL IV PRN (16:36)
[2020-09-04] MEDS ORDERED: CALCIUM GLYCEROPHOSPHATE 65 MG PO SCH (17:00)
--- NOTE | 2020-09-04 17:18 | Consultation Report ---
DATE OF CONSULTATION: 09/04/2020 NEUROLOGY CONSULTATION NOTE CHIEF COMPLAINT: Fall/amnesia. HISTORY OF PRESENT ILLNESS: An 80-year-old woman with a history of type 2 diabetes, hypertension, hyperlipidemia, and chronic kidney disease, admitted to the hospital from home after a fall. The patient reportedly had fallen 2 days ago and was experiencing nausea and vomiting for the last 2 days. The patient is amnestic to the event. She does not recall the details. She was brought into the hospital and diagnosed to be in rhabdomyolysis. It is unknown how long the patient was down on the ground as there is limited history. Best estimate is to be roughly around 12 hours. The patient does not recall any presyncopal symptoms. She has no history of stroke, loss of consciousness, or seizure. Neurology was consulted upon admission given the amnesia and possible loss of consciousness. ALLERGIES: CEPHALOSPORINS, SOLIFENACIN. PAST MEDICAL HISTORY: Type 2 diabetes, depression, chronic interstitial cystitis, chronic kidney disease, hyperlipidemia, hypertension. PAST SURGICAL HISTORY: Bilateral salpingo-oophorectomies, cystoscopy. She does have a history of claw foot, status post surgery, history of mandibular surgery. HOME MEDICATIONS: Include atenolol 50 mg daily, atorvastatin 40 mg daily, baclofen 10 mg as needed, citalopram 20 mg daily, Cymbalta 20 mg daily, estradiol, fentanyl patch, Lasix 40 mg as needed, gabapentin 100 mg twice daily as needed, gabapentin 300 mg nightly, Ativan as needed, losartan 100 mg daily, Pamelor 50 mg nightly, omeprazole 40 mg daily, polyethylene glycol 17 mg daily. FAMILY HISTORY: Her mother is from a myocardial infarction with a history of coronary artery disease and a CABG. Brother has diabetes. Father had a stroke. SOCIAL HISTORY: She is a nonsmoker, denies any alcohol use. She lives alone. She is a retired RN. She uses a cane. REVIEW OF SYSTEMS: All systems were reviewed and unremarkable except as noted above in the HPI. PHYSICAL EXAMINATION: VITAL SIGNS: Blood pressure 169/64, pulse is 86, respiratory rate 18, temperature is 37 degrees Celsius, oxygen saturation 95% on room air. GENERAL: The patient appears her stated age. She is in a wheelchair. She appears fatigued. HEENT: Face is normocephalic without any signs of trauma. EYES: Show a ptosis on the right. Conjunctivae are not injected. NECK: Supple. LUNGS: Normal respiratory effort. CARDIAC: Pulses are normal. ABDOMEN: Nondistended. SKIN: There is no skin rash. PSYCHIATRIC: Normal mood. NEUROLOGIC: She appears her stated age. She is awake. She is alert. She is oriented to age, month and year. Her attention is normal. Her knowledge is appropriate. Her comprehension is intact and she is following simple commands. Her speech is soft and clear. She blinks to threat. Her extraocular muscles are intact. Her pupils are symmetric. Her facial sensation is intact. Her face is symmetric when she smiles. She has no teeth. Her hearing is intact. Her palate is symmetric. Shoulder shrug is normal. Tongue is midline with a red lesion noted on the right side of her tongue, which the patient reports is chronic. Gait examination is deferred as the patient is in a wheelchair and awaiting her carotid ultrasound. She has no tremor or myoclonic jerks. There is no tremor in her upper extremities and her [id number] testing reveals no ataxia. Sensation is intact to light touch. Muscle tone is normal. No focal weakness. Reflexes show a negative Shauna sign and no ankle clonus. DIAGNOSTIC TESTING AND LABORATORY VALUES: WBC 7.89, hemoglobin 11, platelet count is 318. INR is 1.1. Sodium is 136, potassium is 3.1, chloride is 93, carbon dioxide 32, BUN is 34, creatinine is 1.32, glucose is 106. AST is 160, ALT is normal at 63. Total creatine kinase is elevated at 3683. Troponin is negative. Lipase is 46. Carotid ultrasound; approximately 50%-69% stenosis within the proximal right internal carotid artery due to calcified plaque. No significant stenosis within the left carotid artery. Chest CTA showed no evidence of acute pulmonary embolism. No evidence of acute parenchymal consolidation, mildly enlarged right subpectoral lymph node. Chest x-ray; no acute cardiopulmonary findings. Pelvis x-ray; no acute bony abnormality. Head CT noncontrast showed no acute findings. No evidence of acute hemorrhage. No calvarial fracture. ASSESSMENT AND PLAN: An 80-year-old woman with multiple medical comorbidities including hypertension, type 2 diabetes, and chronic kidney disease, admitted with rhabdomyolysis or acute kidney injury due to recent presumed fall with loss of consciousness. No clinical history to suggest that she had a seizure, although her history is limited. Given her nausea, vomiting and comorbidities, I would agree that this episode was presumed due to an orthostatic or vasovagal syncopal episode. The patient may have sustained a concussion and therefore is amnestic to the event. The abrasion noted on the right side of her tongue is chronic per discussion with the patient. Unclear if polypharmacy may be contributing to the episode. We will defer to the primary team for management of her rhabdomyolysis. The patient will likely require physical therapy and occupational therapy for rehabilitation needs. While the patient is admitted to the hospital, I would obtain a routine EEG. Otherwise, would defer on any further neurological workup. I would not start an antiepileptic medication. Please contact neurology with any additional questions or concerns. ISIDRO
[2020-09-04 17:36] LABS: Appearance Urine Clear (Clear); Bilirubin Urine Negative (Negative); Blood Urine 2+ (Negative); Color Urine Yellow; Glucose Urine UA Negative (Negative); Ketones Urine 1+ (Negative); Leukocyte Esterase Urine Negative (Negative); Nitrite Urine Negative (Negative); Protein Urine Trace (Negative); Specific Gravity Urine 1.041 (1.000-1.030); Urobilinogen Urine Negative (Negative); pH Urine 6.5 (4.5-7.5)
[2020-09-04 17:55] LABS: Amphetamines+Metham, Urine Neg (Neg); Barbiturates, Urine Neg (Neg); Benzodiazepine, Urine Neg (Neg); Cocaine, Urine Neg (Neg); MDMA (Ecstacy), Urine Neg (Neg); Methadone, Urine Neg (Neg); Opiate, Urine Pos (Neg); Phencyclidine, Urine Neg (Neg)
[2020-09-04 17:58] LABS: Bacteria Urine Negative (Negative); Epithelial Cell Urine 20-30 /lpf (0-5); Renal Epithelial Cells Urine 0-5 /lpf (0-5)
[2020-09-04 18:53] LABS: BUN Creatinine Ratio 25.3 (10-20); Est GFR (African American) 46.6; Est GFR (Non-African American) 40.2; Potassium 3.3 mmol/L (3.5-5.1)
[2020-09-04] MEDS: PROMETHAZINE HCL 6.25 MG in SODIUM CHLORIDE 0.9% 50 ML IV PRN (19:33)
[2020-09-04] MEDS ORDERED: NORTRIPTYLINE HCL 25 MG CAP PO SCH (21:00)
[2020-09-04] MEDS: GABAPENTIN 300 MG CAP PO SCH (21:58)
[2020-09-05] MEDS: ONDANSETRON INJ 2 MG/ML 2 ML VIAL IV PRN ×3 (00:33→18:08)
[2020-09-05] MEDS ORDERED: MoRPHine SULFATE 4 MG/ML 1 ML CARP\\VIAL IV PRN (01:06)
[2020-09-05] MEDS: CHECK fentaNYL PATCH PLACEMENT SCH ×3 (01:07→15:34)
[2020-09-05] MEDS: NSS + 20MEQ KCL 20 MEQ/1,000 ML BAG IV SCH ×2 (04:42→17:33)
[2020-09-05] MEDS: PROMETHAZINE HCL 6.25 MG in SODIUM CHLORIDE 0.9% 50 ML IV PRN ×3 (04:43→19:35)
[2020-09-05] MEDS: HEPARIN SOD 5,000 UNIT/0.5 ML VIAL SQ SCH ×3 (05:02→20:55)
[2020-09-05 06:06] LABS: Basophils # (auto) 0.01 K/uL (0-0.2); Basophils % (auto) 0.1 %; Eosinophils # (auto) 0.03 K/uL (0-0.5); Eosinophils % (auto) 0.4 %; Hematocrit (blood only) 29.4 % (37-47); Hemoglobin 9.4 g/dL (12.0-16.0); Immature Granulocytes # (auto) 0.04 K/uL (0.00-0.02); Immature Granulocytes % (auto) 0.5 %; Lymphocytes # (auto) 1.49 K/uL (1.2-3.4); Lymphocytes % (auto) 17.7 %; Mean Corpuscular Hemoglobin 26.6 pg (25-34); Mean Corpuscular Volume 83.1 fL (80-100); Monocytes # (auto) 0.82 K/uL (0.11-0.59); Monocytes % (auto) 9.7 %; Neutrophils # (auto) 6.04 K/uL (1.4-6.5); Neutrophils % (auto) 71.6 %; Platelet Count 272 K/uL (130-400); RDW Coefficient of Variation 15.4 % (11.5-14.5); RDW Standard Deviation 46.2 fL (36.4-46.3); Red Blood Count 3.54 M/uL (4.2-5.4); White Blood Count 8.43 K/uL (4.8-10.8)
[2020-09-05 06:39] LABS: Albumin Level 2.8 gm/dl (3.4-5.0); BUN Creatinine Ratio 22.6 (10-20); Calcium 8.8 mg/dl (8.5-10.1); Creatinine Clr Calc Pharmacy 41.7 ml/min; Est GFR (African American) 60.2; Est GFR (Non-African American) 51.9; Magnesium 2.3 mg/dl (1.8-2.4); Potassium 3.5 mmol/L (3.5-5.1)
[2020-09-05 06:53] LABS: Albumin Globulin Ratio 0.8 (0.9-2); Bilirubin,Total 0.6 mg/dl (0.2-1); Globulin 3.7 gm/dl (2.5-4.0); Total Protein 6.5 gm/dl (6.4-8.2)
[2020-09-05] MEDS: HYDROcodone/ACETAMINOPHEN 10/325 TAB PO PRN ×2 (08:01→13:29)
[2020-09-05] MEDS: ATENOLOL 25 MG TABLET PO SCH (08:01)
[2020-09-05] MEDS: PANTOprazole 40 MG TAB PO SCH (08:01)
[2020-09-05] MEDS: LIDOCAINE 5% 1 PATCH TD SCH (08:01)
--- NOTE | 2020-09-05 08:45 | Pain Management Consultation ---
Date of Consultation September 05, 2020 Assessment & Plan (1) Nausea & vomiting: (2) Rhabdomyolysis: (3) Loss of consciousness for 30 minutes to 24 hours: (4) Depression with anxiety: (5) Chronic neck pain: Unsure if the patient's high doses of opioids could have contributed to her syncopal episode given that she has been on this regimen for many years. I will leave the Fentanyl Patch at 75mcg and the Hydrocodone at 10/325mg. Gabapentin remains at 300mg HS. She is currently several medications that could contribute to Serotonin Syndrome. I will discontinue the Nortriptyline and Celexa and increase the Cymbalta to 60mg daily to help with both depression and chronic pain complaints. Nausea and vomiting may be withdrawal symptoms from not taking her medications for several days. With IV Zofran she should be able to take her oral medications again. Thank you for the consultation. History of Present Illness Attending Physician: Doug Fowler MD History of Present Illness This is an 80 year old female that had a syncopal episode and was on the ground for about 12 hours. Patient does not have any recollection as to what happened. Fall occurred 2 days ago. There is also nausea and vomiting x 2 days so she has not been taking her oral medications. She does have chronic diffuse pains, worse in the neck. She has been on Fentanyl patch 75mcg, Hydrocodone 10/325mg once daily, and Gabapentin 300mg HS for an extended about of time - patient approximates around 5 years. She states that the Nortriptyline 50mg and Cymbalta 20mg are newer additions to her medication regimen. She did receive IV Morphine yesterday with moderate pain relief. No constipation, confusion, or change to chronic pains. Case discussed with Dr. Malou Calix Allergies Allergy/AdvReac Type Severity Reaction Status Date / Time Cephalosporins Allergy Intermediate KEFLEX = Verified 05/04/14 20:42 RASH solifenacin Allergy Unknown Jittery Unverified 05/04/14 20:42 Home Medications Medication Instructions Recorded Confirmed Type alendronate 70 mg PO WK 09/04/20 09/04/20 History atenolol 50 mg PO DAILY 09/04/20 09/04/20 History atorvastatin 40 mg PO DAILY 09/04/20 09/04/20 History baclofen 10 mg PO HS PRN 09/04/20 09/04/20 History calcium glycerophosphate 65 mg PO QID 09/04/20 09/04/20 History citalopram 20 mg PO DAILY 09/04/20 09/04/20 History duloxetine [Cymbalta] 20 mg PO DAILY 09/04/20 09/04/20 History estradiol 1 g VAGINAL 2XWK 09/04/20 09/04/20 History fentanyl 1 patch TRANSDERMAL Q72H 09/04/20 09/04/20 History furosemide 40 mg PO DAILY PRN 09/04/20 09/04/20 History gabapentin 100 mg PO BID PRN 09/04/20 09/04/20 History gabapentin 300 mg PO HS 09/04/20 09/04/20 History hydrocodone-acetaminophen 1 tab PO Q6H PRN 09/04/20 09/04/20 History lorazepam 0.5 mg PO BID PRN 09/04/20 09/04/20 History losartan 100 mg PO DAILY 09/04/20 09/04/20 History epcg-tthr-htgl-m osjz-bh-mvlhr 81.6 tab PO DAILY PRN 09/04/20 09/04/20 History nortriptyline 50 mg PO HS 09/04/20 09/04/20 History omeprazole 40 mg PO DAILY 09/04/20 09/04/20 History polyethylene glycol 3350 17 g PO DAILY 09/04/20 09/04/20 History triamterene-hydrochlorothiazid 1 cap PO DAILY 09/04/20 09/04/20 History Patient History Medical History (Updated 09/04/20 @ 14:17 by Janette Kendall PA-C) Anemia Chronic interstitial cystitis Chronic neck pain CKD (chronic kidney disease) stage 3, GFR 30-59 ml/min Depression with anxiety History of Lyme disease History of pulmonary embolism in 30s during , hypercoag w/u negative HLD (hyperlipidemia) HTN (hypertension) T2DM (type 2 diabetes mellitus) Surgical History (Updated 09/04/20 @ 13:55 by Janette Kendall PA-C) History of bilateral salpingo-oophorectomy (BSO) History of cystoscopy History of foot surgery R 2/2 to claw foot History of hysterectomy History of mandibular surgery hx of TMJ surgeries x 9 with eventual total joint replacement Family History (Updated 09/04/20 @ 13:55 by Janette Kendall PA-C) Mother Myocardial infarction Coronary heart disease Hx of CABG Brother Diabetes Father Stroke Social History (Updated 09/04/20 @ 13:56 by Janette Kendall PA-C) Smoking Status: Never smoker Tobacco Type: Cigarettes packs per day: 0.5; Years Smoked: 8; Cigarettes Per Day: 10; Hx Alcohol Use: No Hx Substance Use: No Preferred Language: Amharic Communication Ability: Effective Paraprofessional Interpreter Required: No Beliefs That Will Affect Care: None Current Living Situation: Alone current occupational status: retired current occupation: retired RN Feels Safe at Home: Yes Safety Concerns: Feels Safe At This Time Assistive Devices: Cane Physical Exam Physical Exam: GENERAL: This is an 80 year old female. Does not appear in acute distress. HEAD/FACE: Normocephalic and atraumatic. EYES: No drainage or conjunctival injection. ENT: Nose without bleeding or discharge. Oral mucosa moist. NECK: Full ROM without apparent pain. No swelling or masses noted. RESPIRATORY: Patient with unlabored breathing. No signs of respiratory distress. CHEST/AXILLA: Chest movement symmetrical. No deformities noted. BACK: Moves without difficulty SKIN: [place], warm and dry. No rash noted. MS/EXTREMITY: No swelling, no deformities. Moving extremities appropriately. NEURO: Alert and appears oriented. Speech is fluent. Cranial Nerves are grossly intact. PSYCH: Flat affect. Avoids eye contact.
[2020-09-05] MEDS ORDERED: DULoxetine HCL 20 MG CAP PO SCH (09:00)
[2020-09-05] MEDS ORDERED: CITALOPRAM 20 MG TAB PO SCH (09:00)
[2020-09-05] MEDS ORDERED: DULoxetine HCL 20 MG CAP PO ONE (09:45)
[2020-09-05] MEDS: amLODIPine BESYLATE 5 MG TAB PO SCH (11:10)
--- NOTE | 2020-09-05 11:12 | Electrocardiogram Report ---
Test Reason : Blood Pressure : / mmHG Vent. Rate : 076 BPM Atrial Rate : 076 BPM P-R Int : 184 ms QRS Dur : 074 ms QT Int : 426 ms P-R-T Axes : 066 002 012 degrees QTc Int : 479 ms Normal sinus rhythm Nonspecific ST abnormality Borderline ECG When compared with ECG of 04-SEP-2020 10:17, No significant change was found Confirmed by Harmeet Ellsworth ([id number]) on 09/05/2020 11:12:25 AM Referred By: REFERRED SELF Confirmed By:Harmeet Ellsworth
--- NOTE | 2020-09-05 11:21 | Hospitalist Progress Note ---
Date of Service September 05, 2020 Assessment & Plan (1) Fall: (2) Nausea & vomiting: (3) Loss of consciousness for 30 minutes to 24 hours: per admitting service notes: SYNCOPE, PRESUMED FALL This is an 80-year-old female who has significant past medical history of diet- controlled T2DM, HTN, HLD, CKD stage III baseline creatinine 1.1-1.2, chronic interstitial cystitis, chronic neck pain, history of PE in the 30s during , depression with anxiety who presents ED secondary to fall 2 days ago and nausea and vomiting for 2 days. Pt on ground for unknown duration but appears ~ 12hrs, no pre syncopal symptoms and does not recall events Likely syncopal episode of some sort with loss of bowel/bladder ddx: arrhythmia, seizure activity, fall with hit head/mild TBI (although no evidence of trauma to head/CT normal), excess pain medication, orthostatic hypotension among others CT head negative for acute abn or cva ------ Pulmonary Embolism ruled out CT angio: no PE Neurologic etiology? CT head: no acute CVA EEG: pending Neurologist consulted- likely vasovagal, orthostasis from nausea, poor intake, polypharmacy Orthostatic VS Nortryptiline and Celexa discontinued Cardiac etiology Echo: EF 65-70%, no aortic stenosis Telemetry: no arrythmia so far continue to monitor closely PT/OT evaluation (4) Rhabdomyolysis: (5) Acute worsening of stage 3 chronic kidney disease: per admitting service notes: baseline cr 1.0-1.2 bun/cr 34 and 1.32 likely pre renal in setting of poor intake and on floor with rhabdo 500ml IVF bolus ordered then 80cc NSS + 20meq KCL hold statin, losartan, triamterene/hctz crea back to baseline CPK decreased from 3,600 to 2,000 continue gentle IV fluids (6) Hypokalemia: resolved (7) Chronic neck pain: per admitting service notes: pt with chronic neck pain does not follow pain management, monitored by PCP on fentanyl patc 75mcg q72hr, prn hydrocodone/apap 10mg-325, gabapentin, cymbalta and nortriptyline - per oupt notes mostly well controlled hold prn baclofen for now give multiple sedating medications pt c/o significant pain with n/v Pain management SVC consulted continue usual Fentanyl 75mcg daily, with [place] 10/325mg PRn, Gabapentin 300mg HS Nortryptiline and Celexa discontinued Cymbalta increased to 60mg daily (8) Prolonged QT interval: qtc 488ms --> 479 on multiple qtc prolonging agents avoid qtc prolonging meds if able Nortryptiline and Celexa discontinued (9) T2DM (type 2 diabetes mellitus): diet controlled, last a1c 6.8 07/04/2020 monitor fasting bsg --> 81 (10) HTN (hypertension): bp elevated, likely in setting of missed medications continue atenolol hold losartan and triamterene/hctz 2/2 to brennon start Amlodipine 5mg po daily PRN Hydralazine IV for systolic bp > 160 (11) HLD (hyperlipidemia): on statin hold in setting of rhabdo (12) Jaw pain: history of TMJ surgeries patient requesting to consult Dr. Blanchard (13) Interstitial cystitis: reports persistent bladder pain no urinary symptoms UA no signs of UTI requesting to consult Urologist Dr. Gao (14) DVT prophylaxis: Sq heparin DNR Disposition: admit to med tele Follow up: PCP Dr. Graves upon discharge, also f/u abn finding on Chest CTA + R subpectoral lymph node Admission and Anticipated Discharge Date Admission Date: September 04, 2020 Subjective ff up for syncope, fall seen resting in bed, comfortable somewhat weak oriented x 3, answers all questions appropriately main symptom is nausea- leading to poor intake denies abdominal pain, constipation, melena/hematochezia also reports bladder pain- described as flare up of interstitial cystitis no dysuria, chills, flank or back pain reports persistent left jaw pain- history of TMJ surgeries denies headache, dizziness, chest pain, dyspnea, palpitations ambulating with no problems no other symptoms Review of Systems Review of Systems: All systems reviewed & are unremarkable except as noted in Subjective Physical Exam Physical Exam: General- oriented x 3, not in distress, speaks in sentences with no effort or accessory muscle use Head- atraumatic Eyes- PERRL, EOMI, anicteric ENT- not able to open mouth wide- chronic Neck- supple, no JVD, no adenopathy, no thyromegaly; carotids +2/2, no bruits appreciated Lungs- clear to auscultation bilaterally, no rales/wheezes Heart- normal rate, regular rhythm; no murmur, no gallop, no rub appreciated Abdomen- normal bowel sounds, nondistended, soft, mild suprapubic tenderness, no masses or hepatosplenomegaly Extremities- no pretibial edema, no calf tenderness; peripheral pulses intact Neuro- alert, oriented x 3; CN 2-12 grossly intact; motor 5/5 bilaterally;sensation 100% on all extremities; no other gross focal neurologic deficits Skin- warm & dry Results & Data Results & Data ([facility]) Vital Signs (Past 12 Hours) Vital Signs Temp Pulse Pulse Resp BP BP Pulse Ox 09/05/20 10:54 09/05/20 07:22 75 09/05/20 06:51 36.6 C 87 18 162/70 H 94 09/05/20 03:13 37.0 C 91 H 20 168/72 H 96 09/05/20 00:54 96 H 09/04/20 23:31 36.8 C 83 20 157/71 H 97 Pulse Ox Pulse Ox Pulse Ox 09/05/20 10:54 96 99 89 L 09/05/20 07:22 09/05/20 06:51 09/05/20 03:13 09/05/20 00:54 09/04/20 23:31 Laboratory Results Laboratory Results - last 24 hr 09/04/20 09/04/20 09/04/20 17:05 17:05 17:05 WBC RBC Hgb Hct MCV MCH MCHC RDW Std Deviation RDW Coeff of Luis Plt Count MPV Immature Gran % (Auto) Neut % (Auto) Lymph % (Auto) [place] % (Auto) Eos % (Auto) Baso % (Auto) Neut # (Auto) Lymph # (Auto) [place] # (Auto) Eos # (Auto) Baso # (Auto) Immature Gran # (Auto) Sodium Potassium Chloride Carbon Dioxide Anion Gap BUN Creatinine Est Cr Clr Drug Dosing Est GFR ( Amer) Est GFR (Non-Af Amer) BUN/Creatinine Ratio Glucose Calcium Magnesium Total Bilirubin AST ALT Alkaline Phosphatase Total Creatine Kinase Total Protein Albumin Globulin Albumin/Globulin Ratio Urine Color Yellow Urine Appearance Clear Urine pH 6.5 Ur Specific Ross 1.041 H Urine Protein Trace H Urine Glucose (UA) Negative Urine Ketones 1+ H Urine Blood 2+ H Urine Nitrite Negative Urine Bilirubin Negative Urine Urobilinogen Negative Ur Leukocyte Esterase Negative Urine RBC 5-10 H Urine WBC 5-10 H Ur Epithelial Cells 20-30 H Ur Renal Epithelial Cell 0-5 Urine Bacteria Negative Urine Opiates Screen Pos H U Codeine Confrm GC/MS Pending Ur Morphine (GC/MS) Pending Ur Hydrocodone (GC/MS) Pending Ur Norhydrocodone Pending Ur Noroxycodone Pending Urine Oxycodone (GC/MS) Pending U Oxymorphone GC/MS Pending Ur Methadone, Qual Neg Ur Hydromorphone (GC/MS) Pending Urine Barbiturates Neg Ur Phencyclidine (PCP) Neg U Amphetamin/Meth Scrn Neg MDMA (Ecstasy) Screen Neg U Benzodiazepines Scrn Neg Ur Cocaine Metabolite Neg U Marijuana (THC) Screen Neg Drug Screen Comment Pending 09/04/20 09/05/20 09/05/20 18:15 05:43 05:43 WBC 8.43 RBC 3.54 L Hgb 9.4 L Hct 29.4 L MCV 83.1 MCH 26.6 MCHC 32.0 RDW Std Deviation 46.2 RDW Coeff of Luis 15.4 H Plt Count 272 MPV 9.0 Immature Gran % (Auto) 0.5 Neut % (Auto) 71.6 Lymph % (Auto) 17.7 [place] % (Auto) 9.7 Eos % (Auto) 0.4 Baso % (Auto) 0.1 Neut # (Auto) 6.04 Lymph # (Auto) 1.49 [place] # (Auto) 0.82 H Eos # (Auto) 0.03 Baso # (Auto) 0.01 Immature Gran # (Auto) 0.04 H Sodium 136 138 Potassium 3.3 L 3.5 Chloride 96 L 100 Carbon Dioxide 32 30 Anion Gap 9.0 8.0 BUN 32 H 23 H Creatinine 1.26 H 1.02 Est Cr Clr Drug Dosing 35.0 41.7 Est GFR ( Amer) 46.6 60.2 Est GFR (Non-Af Amer) 40.2 51.9 BUN/Creatinine Ratio 25.3 H 22.6 H Glucose 100 H 81 Calcium 9.0 8.8 Magnesium 2.3 Total Bilirubin 0.6 AST 118 H ALT 55 Alkaline Phosphatase 65 Total Creatine Kinase 2085 H Total Protein 6.5 Albumin 2.8 L Globulin 3.7 Albumin/Globulin Ratio 0.8 L Urine Color Urine Appearance Urine pH Ur Specific Ross Urine Protein Urine Glucose (UA) Urine Ketones Urine Blood Urine Nitrite Urine Bilirubin Urine Urobilinogen Ur Leukocyte Esterase Urine RBC Urine WBC Ur Epithelial Cells Ur Renal Epithelial Cell Urine Bacteria Urine Opiates Screen U Codeine Confrm GC/MS Ur Morphine (GC/MS) Ur Hydrocodone (GC/MS) Ur Norhydrocodone Ur Noroxycodone Urine Oxycodone (GC/MS) U Oxymorphone GC/MS Ur Methadone, Qual Ur Hydromorphone (GC/MS) Urine Barbiturates Ur Phencyclidine (PCP) U Amphetamin/Meth Scrn MDMA (Ecstasy) Screen U Benzodiazepines Scrn Ur Cocaine Metabolite U Marijuana (THC) Screen Drug Screen Comment
[2020-09-05] MEDS: LORazepam 0.5 MG TAB PO PRN (13:28)
--- NOTE | 2020-09-05 14:10 | Gastrointestinal Consultation ---
Date of Consultation September 05, 2020 Assessment & Plan (1) Nausea & vomiting: Pt is a 80 y/o female seen for n/v symptoms. S/P fall 2 days ago w ? syncopal episode and found to have MERCED, rhabdomyolosis on admission. Denies GI symptoms prior to this event. She was suspected to be without her Fentanyl patch in last couple of days and may have withdrawal symptoms. On afternoon rounds she is denying any more n/v symptoms, wants to try CL diet. - Obtain KUB to r/o obstructive processes - Supportive care w IVF, antiemetics for now - Deferring EGD eval unless n/v continues - Pain management on board - Pls recall GI prn Attg add: I interviewed and examined pt, reviewed chart and labs. Pt found down, describes retching with n/v, abd pain. She describes some improvement in her symptoms post admission. Would ask primary service to adv diet as tolerated, f/u KUB. Defer EGD for now, but please re-consult if she fails to improve. History of Present Illness Reason for Consultation: Nausea, vomiting Requesting Physician: Dr. Doug Fowler Attending Physician: Dr. Yves Hill History of Present Illness Pt is a 80 y/o female presented to ED s/p syncopal episode and fall 2 days ago. Unsure if she had seizure like activity or not as event was unwitnessed but she was incontinent of urine and stool when she woke up on bathroom floor. CT head unremarkable. No acute fractures on neck, pelvis areas. On eval she has MERCED and rhabdomyolosis w also elevated AST levels. She is seen today as was having nausea, vomiting symptoms. Poor historian but she doesn't recall having this symptoms prior to her falling. Denies abd pain, or changes in bowel habits ot herwise. No GI bleeding. She was on Fentanyl patch q72hrs and suspected to be without her meds in last 2 days thus nausea, vomiting was suspected to may have been from med withdrawals? Utox negative. EGD 2010 unremarkable. Allergies Allergy/AdvReac Type Severity Reaction Status Date / Time Cephalosporins Allergy Intermediate KEFLEX = Verified 05/04/14 20:42 RASH solifenacin Allergy Unknown Jittery Unverified 05/04/14 20:42 Home Medications Medication Instructions Recorded Confirmed Type alendronate 70 mg PO WK 09/04/20 09/04/20 History atenolol 50 mg PO DAILY 09/04/20 09/04/20 History atorvastatin 40 mg PO DAILY 09/04/20 09/04/20 History baclofen 10 mg PO HS PRN 09/04/20 09/04/20 History calcium glycerophosphate 65 mg PO QID 09/04/20 09/04/20 History citalopram 20 mg PO DAILY 09/04/20 09/04/20 History duloxetine [Cymbalta] 20 mg PO DAILY 09/04/20 09/04/20 History estradiol 1 g VAGINAL 2XWK 09/04/20 09/04/20 History fentanyl 1 patch TRANSDERMAL Q72H 09/04/20 09/04/20 History furosemide 40 mg PO DAILY PRN 09/04/20 09/04/20 History gabapentin 100 mg PO BID PRN 09/04/20 09/04/20 History gabapentin 300 mg PO HS 09/04/20 09/04/20 History hydrocodone-acetaminophen 1 tab PO Q6H PRN 09/04/20 09/04/20 History lorazepam 0.5 mg PO BID PRN 09/04/20 09/04/20 History losartan 100 mg PO DAILY 09/04/20 09/04/20 History meas-nkpq-ufba-m fato-sm-kihxg 81.6 tab PO DAILY PRN 09/04/20 09/04/20 History nortriptyline 50 mg PO HS 09/04/20 09/04/20 History omeprazole 40 mg PO DAILY 09/04/20 09/04/20 History polyethylene glycol 3350 17 g PO DAILY 09/04/20 09/04/20 History triamterene-hydrochlorothiazid 1 cap PO DAILY 09/04/20 09/04/20 History Patient History Medical History Anemia Chronic interstitial cystitis Chronic neck pain CKD (chronic kidney disease) stage 3, GFR 30-59 ml/min Depression with anxiety History of Lyme disease History of pulmonary embolism in 30s during , hypercoag w/u negative HLD (hyperlipidemia) HTN (hypertension) T2DM (type 2 diabetes mellitus) Surgical History History of bilateral salpingo-oophorectomy (BSO) History of cystoscopy History of foot surgery R 2/2 to claw foot History of hysterectomy History of mandibular surgery hx of TMJ surgeries x 9 with eventual total joint replacement Family History Mother Myocardial infarction Coronary heart disease Hx of CABG Brother Diabetes Father Stroke Social History Smoking Status: Never smoker Tobacco Type: Cigarettes packs per day: 0.5; Years Smoked: 8; Cigarettes Per Day: 10; Hx Alcohol Use: No Hx Substance Use: No Preferred Language: Estonian Communication Ability: Effective Train Clerk Required: No Beliefs That Will Affect Care: None Current Living Situation: Alone current occupational status: retired current occupation: retired RN Feels Safe at Home: Yes Safety Concerns: Feels Safe At This Time Assistive Devices: Walker Review of Systems Review of Systems: All systems reviewed & are unremarkable except as noted in HPI & below Physical Exam Constitutional: + frail appearing, well groomed, cooperative and comfortable Eyes: PERRL, conjunctivae normal, anicteric sclerae ENMT: external ear and nose normal, oropharynx normal Respiratory: no respiratory distress and does not use accessory muscles Auscultation: + diminished lung sounds Cardiovascular: RRR, no murmur, no edema Gastrointestinal (Abdomen): Inspection/Auscultation: + hypoactive bowel sounds Percussion/Palpation: abdomen soft; abdomen nontender Skin: no rashes, warm and dry no jaundice Psychiatric: A+Ox3, euthymic affect Lymphatic: no lymphedema Results & Data ([facility]) Vital Signs (Past 12 Hours) Vital Signs Temp Pulse Pulse Resp BP Pulse Ox Pulse Ox 09/05/20 11:42 36.6 C 74 18 189/72 H 99 09/05/20 10:54 96 09/05/20 07:22 75 09/05/20 06:51 36.6 C 87 18 162/70 H 94 09/05/20 03:13 37.0 C 91 H 20 168/72 H 96 Pulse Ox Pulse Ox 09/05/20 11:42 09/05/20 10:54 99 89 L 09/05/20 07:22 09/05/20 06:51 09/05/20 03:13
--- NOTE | 2020-09-05 14:23 | Urology Consultation ---
Date of Consultation September 05, 2020 Assessment & Plan (1) Chronic interstitial cystitis: 80yo F admitted s/p syncopal episode and fall on 09/04/20 who has persistent bladder pain. -Hx of chronic interstitial cystitis -Typically manages symptoms with diet and OTC "prelief" -Voiding spontaneously without difficulty -Afebrile, wbc and creatinine stable -Recommend pyridium as needed for bladder pain -Pt can take home med "prelief" with meals for bladder pain -Continue supportive care per primary team -Pain control per pain management recommendations -Will arrange outpatient follow-up with urology service following discharge -Thank you for allowing us to participate in the acute care of Mrs. Ortiz. Please reconsult us with additional questions, concerns or changes in patient status. History of Present Illness Reason for Consultation: persistent bladder pain, interstitial cystitis Attending Physician: Doug Fowler MD History of Present Illness The patient is an 80-year-old female with a PMHx including diet controlled T2DM, HTN, HLD, CKD stage III, chronic interstitial cystitis, chronic neck pain, history of PE in the 30s during , depression, and anxiety who presented to the ED with nausea, vomiting, and weakness s/p syncopal episode and fall at home on 09/04/20. Chart review 09/05: Afebrile, Wbc 8.43, Hgb 9.4, Cr 1.02. Blood cultures pending. Pain management following. UA with 5-10 rbc, 5-10 wbc, neg bacteria, neg nitrites, neg leuks. Urology consulted for persistent bladder pain and interstitial cystitis Patient with a known hx of chronic IC/bladder pain. She was last seen by Dr. Gao ~2011. She states she has also followed with Dr. Dupont/[facility]. 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 Patient examined at bedside. Awake, resting in bed on arrival. She reports bladder pain/discomfort for a few days. She states she has not had any of her IC meds and feels she is having a "flare up." She typically takes OTC "prelief" prior to meals for bladder pain and use an Oxytrol patch. Pt also manages symptoms with avoiding bladder irritants such as caffeine. She denies hematuria/dysuria. Denies back and flank pain. Denies urinary frequency or hesitancy. Some urgency. She wears 1ppd for protection at home. Denies urinary leakage/incontinence. Stream good. Feels she is emptying her bladder well. Nocturia 2-3. Overall, urinary symptoms are not bothersome. Denies f/c/n/v. Denies CP/SOB. Offers no additional complaints today Allergies Allergy/AdvReac Type Severity Reaction Status Date / Time Cephalosporins Allergy Intermediate KEFLEX = Verified 05/04/14 20:42 RASH solifenacin Allergy Unknown Jittery Unverified 05/04/14 20:42 Home Medications Medication Instructions Recorded Confirmed Type alendronate 70 mg PO WK 09/04/20 09/04/20 History atenolol 50 mg PO DAILY 09/04/20 09/04/20 History atorvastatin 40 mg PO DAILY 09/04/20 09/04/20 History baclofen 10 mg PO HS PRN 09/04/20 09/04/20 History calcium glycerophosphate 65 mg PO QID 09/04/20 09/04/20 History citalopram 20 mg PO DAILY 09/04/20 09/04/20 History duloxetine [Cymbalta] 20 mg PO DAILY 09/04/20 09/04/20 History estradiol 1 g VAGINAL 2XWK 09/04/20 09/04/20 History fentanyl 1 patch TRANSDERMAL Q72H 09/04/20 09/04/20 History furosemide 40 mg PO DAILY PRN 09/04/20 09/04/20 History gabapentin 100 mg PO BID PRN 09/04/20 09/04/20 History gabapentin 300 mg PO HS 09/04/20 09/04/20 History hydrocodone-acetaminophen 1 tab PO Q6H PRN 09/04/20 09/04/20 History lorazepam 0.5 mg PO BID PRN 09/04/20 09/04/20 History losartan 100 mg PO DAILY 09/04/20 09/04/20 History ljlh-xbna-kyoq-m msuf-vd-lgudm 81.6 tab PO DAILY PRN 09/04/20 09/04/20 History nortriptyline 50 mg PO HS 09/04/20 09/04/20 History omeprazole 40 mg PO DAILY 09/04/20 09/04/20 History polyethylene glycol 3350 17 g PO DAILY 09/04/20 09/04/20 History triamterene-hydrochlorothiazid 1 cap PO DAILY 09/04/20 09/04/20 History Patient History Medical History Anemia Chronic interstitial cystitis Chronic neck pain CKD (chronic kidney disease) stage 3, GFR 30-59 ml/min Depression with anxiety History of Lyme disease History of pulmonary embolism in 30s during , hypercoag w/u negative HLD (hyperlipidemia) HTN (hypertension) T2DM (type 2 diabetes mellitus) Surgical History History of bilateral salpingo-oophorectomy (BSO) History of cystoscopy History of foot surgery R 2/2 to claw foot History of hysterectomy History of mandibular surgery hx of TMJ surgeries x 9 with eventual total joint replacement Family History Mother Myocardial infarction Coronary heart disease Hx of CABG Brother Diabetes Father Stroke Social History Smoking Status: Never smoker Tobacco Type: Cigarettes packs per day: 0.5; Years Smoked: 8; Cigarettes Per Day: 10; Hx Alcohol Use: No Hx Substance Use: No Preferred Language: Ivorian Communication Ability: Effective Master Carpenter Required: No Beliefs That Will Affect Care: None Current Living Situation: Alone current occupational status: retired current occupation: retired RN Feels Safe at Home: Yes Safety Concerns: Feels Safe At This Time Assistive Devices: Oxygen - Continuous Review of Systems Review of Systems: All systems reviewed & are unremarkable except as noted in HPI & below Physical Exam Constitutional: cooperative; no acute distress Neck: normal visual inspection Respiratory: normal respiratory effort and able to speak in complete sentences Cardiovascular: Extremities: no calf tenderness Gastrointestinal (Abdomen): Percussion/Palpation: abdomen soft; abdomen nontender and no guarding Musculoskeletal: Head/Neck/Chest: normocephalic Skin: Warm and dry. No visible rashes or lesions. Neurologic: moves all extremities and awake; not confused Psychiatric: Orientation: alert and oriented x 3 Genitourinary: no CVA tenderness Results & Data ([facility]) Vital Signs (Past 12 Hours) Vital Signs Temp Pulse Pulse Resp BP Pulse Ox Pulse Ox 09/05/20 11:42 36.6 C 74 18 189/72 H 99 09/05/20 10:54 96 09/05/20 07:22 75 09/05/20 06:51 36.6 C 87 18 162/70 H 94 09/05/20 03:13 37.0 C 91 H 20 168/72 H 96 Pulse Ox Pulse Ox 09/05/20 11:42 09/05/20 10:54 99 89 L 09/05/20 07:22 09/05/20 06:51 09/05/20 03:13 PG Care Time/CCT Total # of Minutes Spent Total Time Spent with Patient: Total time spent is greater than 50% in coordination of care (as documented) at patient's floor/unit and/or counseling patient: Coding Level of Care Code 93951 Initial Inpt Care Lvl 3 Diagnoses Chronic interstitial cystitis N30.10
--- NOTE | 2020-09-05 14:47 | Electroencephalogram ---
EEG Procedure Note Date of Service September 05, 2020 Start / End Times Start Time: 07:26 End Time: 07:46 Referring Physician Carlos Townsend, DO History An 80-year-old woman admitted with a fall and loss of consciousness. EEG performed for evaluation epileptiform activity. Home Medication List Medication Instructions Recorded Confirmed Type alendronate 70 mg PO WK 09/04/20 09/04/20 History atenolol 50 mg PO DAILY 09/04/20 09/04/20 History atorvastatin 40 mg PO DAILY 09/04/20 09/04/20 History baclofen 10 mg PO HS PRN 09/04/20 09/04/20 History calcium glycerophosphate 65 mg PO QID 09/04/20 09/04/20 History citalopram 20 mg PO DAILY 09/04/20 09/04/20 History duloxetine [Cymbalta] 20 mg PO DAILY 09/04/20 09/04/20 History estradiol 1 g VAGINAL 2XWK 09/04/20 09/04/20 History fentanyl 1 patch TRANSDERMAL Q72H 09/04/20 09/04/20 History furosemide 40 mg PO DAILY PRN 09/04/20 09/04/20 History gabapentin 100 mg PO BID PRN 09/04/20 09/04/20 History gabapentin 300 mg PO HS 09/04/20 09/04/20 History hydrocodone-acetaminophen 1 tab PO Q6H PRN 09/04/20 09/04/20 History lorazepam 0.5 mg PO BID PRN 09/04/20 09/04/20 History losartan 100 mg PO DAILY 09/04/20 09/04/20 History omll-jzrm-vilh-m xkpx-ji-zwxwd 81.6 tab PO DAILY PRN 09/04/20 09/04/20 History nortriptyline 50 mg PO HS 09/04/20 09/04/20 History omeprazole 40 mg PO DAILY 09/04/20 09/04/20 History polyethylene glycol 3350 17 g PO DAILY 09/04/20 09/04/20 History triamterene-hydrochlorothiazid 1 cap PO DAILY 09/04/20 09/04/20 History Inpatient Medication List Hydrocodone Bitart/Acetaminophen (Hydrocodone/Acetaminophen 10/325 Tab) 1 tab PO Q6H PRN PRN Reason: Breakthrough Pain Stop: 09/18/20 13:28 Last Admin: 09/05/20 13:29 Dose: 1 tab Documented by: [id number] Admin: 09/05/20 08:01 Dose: 1 tab Documented by: [id number] Amlodipine Besylate (Amlodipine Besylate 5 Mg Tab) 5 mg PO QAM [facility] Stop: 10/05/20 09:59 Last Admin: 09/05/20 11:10 Dose: 5 mg Documented by: [id number] Atenolol (Atenolol 25 Mg Tablet) 25 mg PO DAILY [facility] Stop: 10/05/20 08:59 Last Admin: 09/05/20 08:01 Dose: 25 mg Documented by: [id number] Fentanyl (Fentanyl 75 Mcg/Hr Tdsy) 75 mcg TD Q72H [facility] Stop: 09/18/20 13:59 Last Admin: 09/04/20 16:27 Dose: 75 mcg Documented by: [id number] Gabapentin (Gabapentin 300 Mg Cap) 300 mg PO HS [facility] Stop: 10/04/20 20:59 Last Admin: 09/04/20 21:58 Dose: Not Given Documented by: [id number] Heparin Sodium (Porcine) (Heparin Sod 5,000 Unit/0.5 Ml Vial) 5,000 units SQ Q8 [facility] Stop: 10/04/20 13:59 Last Admin: 09/05/20 13:29 Dose: 5,000 units Documented by: [id number] Admin: 09/05/20 05:02 Dose: 5,000 units Documented by: [id number] Admin: 09/04/20 21:59 Dose: Not Given Documented by: [id number] Admin: 09/04/20 16:26 Dose: Not Given Documented by: [id number] Promethazine HCl 6.25 mg/ (Sodium Chloride) 50.25 mls @ 201 mls/hr IV Q6H PRN PRN Reason: Nausea And Vomiting Stop: 10/04/20 13:33 Last Infusion: 09/05/20 11:29 Dose: 0 mls/hr Documented by: [id number] Admin: 09/05/20 11:10 Dose: 201 mls/hr Documented by: [id number] Infusion: 09/05/20 05:07 Dose: 0 mls/hr Documented by: [id number] Admin: 09/05/20 04:43 Dose: 201 mls/hr Documented by: [id number] Infusion: 09/04/20 20:17 Dose: 0 mls/hr Documented by: [id number] Admin: 09/04/20 19:33 Dose: 201 mls/hr Documented by: [id number] Potassium Chloride/Sodium Chloride (Normal Saline W/20 Meq Kcl) 20 meq in 1,000 mls @ 80 mls/hr IV .[id number] [facility] Stop: 10/04/20 14:59 Last Admin: 09/05/20 04:42 Dose: 80 mls/hr Documented by: [id number] Infusion: 09/05/20 04:42 Dose: 0 mls/hr Documented by: [id number] Admin: 09/04/20 15:52 Dose: 80 mls/hr Documented by: [id number] Lidocaine (Lidocaine 5% 1 Patch) 1 patch TD QAM [facility] Stop: 10/04/20 13:44 Last Admin: 09/05/20 08:01 Dose: 1 patch Documented by: [id number] Admin: 09/04/20 13:58 Dose: 1 patch Documented by: [id number] Lorazepam (Lorazepam 0.5 Mg Tab) 0.5 mg PO BID PRN PRN Reason: Anxiety Stop: 10/04/20 13:28 Last Admin: 09/05/20 13:28 Dose: 0.5 mg Documented by: [id number] Miscellaneous (Remove Lidoderm Patch) 1 ea N/A DAILY@2100 [facility] Stop: 10/04/20 20:59 Last Admin: 09/04/20 22:01 Dose: 1 ea Documented by: [id number] Misthomasaneous (Fentanyl Patch Remove & Waste) 1 ea N/A Q3D [facility] Stop: 10/04/20 13:29 Last Admin: 09/04/20 13:55 Dose: 1 ea Documented by: [id number] Cosigned by: [id number] Miscellaneous (*Estrace*Order Awaiting Action) 1 ea N/A QS [facility] Stop: 10/04/20 15:59 Last Admin: 09/05/20 07:24 Dose: Not Given Documented by: [id number] Admin: 09/05/20 01:04 Dose: Not Given Documented by: [id number] Admin: 09/04/20 15:59 Dose: Not Given Documented by: [id number] Miscellaneous (Check Fentanyl Patch Placement) 1 ea N/A QS [facility] Stop: 10/04/20 15:59 Last Admin: 09/05/20 08:01 Dose: 1 ea Documented by: [id number] Admin: 09/05/20 01:07 Dose: 1 ea Documented by: [id number] Admin: 09/04/20 16:27 Dose: 1 ea Documented by: [id number] Morphine Sulfate (Morphine Sulfate 4 Mg/Ml 1 Ml Carp\Vial) 4 mg IV Q4H PRN PRN Reason: Pain Stop: 09/19/20 01:05 Last Admin: 09/05/20 01:21 Dose: 4 mg Documented by: [id number] Ondansetron HCl (Ondansetron Inj 2 Mg/Ml 2 Ml Vial) 4 mg IV Q6H PRN PRN Reason: Nausea Stop: 10/04/20 13:20 Last Admin: 09/05/20 08:02 Dose: 4 mg Documented by: [id number] Admin: 09/05/20 00:33 Dose: 4 mg Documented by: [id number] Admin: 09/04/20 16:36 Dose: 4 mg Documented by: [id number] Pantoprazole Sodium (Pantoprazole 40 Mg Tab) 40 mg PO DAILY [facility]; Protocol Stop: 10/05/20 08:59 Last Admin: 09/05/20 08:01 Dose: 40 mg Documented by: [id number] Discontinued Medications Citalopram Hydrobromide (Citalopram 20 Mg Tab) 20 mg PO DAILY [facility] Stop: 10/05/20 08:59 Last Admin: 09/05/20 08:01 Dose: 20 mg Documented by: [id number] Duloxetine HCl (Duloxetine Hcl 20 Mg Cap) 20 mg PO DAILY [facility] Stop: 10/05/20 08:59 Last Admin: 09/05/20 08:01 Dose: 20 mg Documented by: [id number] Duloxetine HCl (Duloxetine Hcl 20 Mg Cap) 40 mg PO ONE ONE Stop: 09/05/20 09:46 Last Admin: 09/05/20 11:10 Dose: 40 mg Documented by: [id number] Sodium Chloride (Nss 1000ml) 500 mls @ 999 mls/hr IV .Q31M ONE Stop: 09/04/20 13:12 Last Infusion: 09/04/20 13:59 Dose: 0 mls/hr Documented by: [id number] Admin: 09/04/20 13:28 Dose: 999 mls/hr Documented by: [id number] Potassium Chloride (K Lauri / Wtr) 10 meq in 100 mls @ 100 mls/hr IV Q1H [facility] Stop: 09/04/20 15:44 Last Infusion: 09/04/20 17:12 Dose: 0 mls/hr Documented by: [id number] Admin: 09/04/20 15:52 Dose: 80 mls/hr Documented by: [id number] Infusion: 09/04/20 14:53 Dose: 0 mls/hr Documented by: [id number] Admin: 09/04/20 13:50 Dose: 100 mls/hr Documented by: [id number] Acetaminophen (Ofirmev) 1,000 mg in 100 mls @ 400 mls/hr IV NOW STA Stop: 09/04/20 13:12 Last Infusion: 09/04/20 13:44 Dose: 0 mls/hr Documented by: [id number] Admin: 09/04/20 13:28 Dose: 400 mls/hr Documented by: [id number] Promethazine HCl 6.25 mg/ (Sodium Chloride) 50.25 mls @ 201 mls/hr IV NOW STA Stop: 09/04/20 13:44 Last Infusion: 09/04/20 14:09 Dose: 0 mls/hr Documented by: [id number] Admin: 09/04/20 13:50 Dose: 201 mls/hr Documented by: [id number] Ioversol (Optiray 320 125ml) 120 ml IV ONCE ONE Stop: 09/04/20 11:30 Last Admin: 09/04/20 11:30 Dose: 120 ml Documented by: [id number] Morphine Sulfate (Morphine Sulfate 2 Mg/Ml Carp) 2 mg IV NOW STA Stop: 09/04/20 12:43 Last Admin: 09/04/20 13:28 Dose: 2 mg Documented by: [id number] Morphine Sulfate (Morphine Sulfate 2 Mg/Ml Carp) 1 mg IV NOW STA Stop: 09/04/20 20:13 Last Admin: 09/05/20 01:01 Dose: Not Given Documented by: [id number] Nortriptyline HCl (Nortriptyline Hcl 25 Mg Cap) 50 mg PO HS [facility] Stop: 10/04/20 20:59 Last Admin: 09/04/20 21:58 Dose: Not Given Documented by: [id number] Ondansetron HCl (Ondansetron Inj 2 Mg/Ml 2 Ml Vial) 4 mg IV NOW STA Stop: 09/04/20 10:06 Last Admin: 09/04/20 10:27 Dose: 4 mg Documented by: [id number] Potassium Chloride (Potassium Chloride 10 Meq Tabcr) 40 meq PO NOW STA Stop: 09/04/20 12:43 Last Admin: 09/04/20 13:45 Dose: Not Given Documented by: [id number] Description This is a 21 electrode EEG with a single channel dedicated to limited EKG. The electrodes were placed in accordance with the International 10-20 system. REPORT: At the onset of the EEG patient is drowsy. The background is symmetric. The posterior dominant rhythm is 6-7 Hz. Photic stimulation does not induce any abnormalities. No epileptiform discharges are noted. No stage II sleep transients are recorded. Drowsiness is characterized by increased theta activity, decreased myogenic artifact in reduced blink rate. IMPRESSION: this is an abnormal awake and drowsy routine EEG due to generalized background slowing suggestive mild nonspecific encephalopathy. No epileptiform discharges are recorded.
--- NOTE | 2020-09-05 14:58 | XRay Report ---
XR KUB/Abdomen 1 view CLINICAL HISTORY: nausea, vomiting COMPARISON STUDY: No previous studies for comparison. FINDINGS: There is no pathologic bowel dilatation. There is moderate colonic stool. There are nonspec ific pelvic basin calcification statistically vascular. Degenerative changes are present within the s pine. IMPRESSION: Nonobstructive bowel gas pattern. ACT 112: Negative or not required by law. Electronically signed by: Jg Mauricio M.D. 09/05/2020 2:56 PM
[2020-09-05] MEDS: GABAPENTIN 300 MG CAP PO SCH (20:55)
[2020-09-05] MEDS: ACETAMINOPHEN 325 MG TAB PO PRN (20:55)
[2020-09-05] MEDS: PHENAZOPYRIDINE HCL 100 MG TAB PO PRN (20:55)
[2020-09-06] MEDS: HYDROcodone/ACETAMINOPHEN 10/325 TAB PO PRN ×2 (00:11→17:09)
[2020-09-06] MEDS: CHECK fentaNYL PATCH PLACEMENT SCH ×4 (00:14→23:37)
[2020-09-06] MEDS: LORazepam 0.5 MG TAB PO PRN ×3 (03:50→20:37)
[2020-09-06] MEDS: NSS + 20MEQ KCL 20 MEQ/1,000 ML BAG IV SCH (06:01)
[2020-09-06] MEDS: HEPARIN SOD 5,000 UNIT/0.5 ML VIAL SQ SCH ×3 (06:03→21:29)
[2020-09-06] MEDS: LIDOCAINE 5% 1 PATCH TD SCH (07:28)
[2020-09-06] MEDS: DULoxetine HCL 60 MG CAP PO SCH (07:28)
[2020-09-06] MEDS: PANTOprazole 40 MG TAB PO SCH (07:29)
[2020-09-06] MEDS: amLODIPine BESYLATE 5 MG TAB PO SCH (07:29)
[2020-09-06] MEDS: ATENOLOL 25 MG TABLET PO SCH (07:29)
[2020-09-06 09:37] LABS: Basophils # (auto) 0.01 K/uL (0-0.2); Basophils % (auto) 0.1 %; Eosinophils # (auto) 0.07 K/uL (0-0.5); Eosinophils % (auto) 0.8 %; Hematocrit (blood only) 29.7 % (37-47); Hemoglobin 9.5 g/dL (12.0-16.0); Immature Granulocytes # (auto) 0.07 K/uL (0.00-0.02); Immature Granulocytes % (auto) 0.8 %; Lymphocytes # (auto) 1.93 K/uL (1.2-3.4); Lymphocytes % (auto) 22.6 %; Mean Corpuscular Hemoglobin 26.7 pg (25-34); Mean Corpuscular Volume 83.4 fL (80-100); Mean Platelet Volume 8.9 fL (7.4-10.4); Monocytes # (auto) 0.75 K/uL (0.11-0.59); Monocytes % (auto) 8.8 %; Neutrophils % (auto) 66.9 %; Platelet Count 267 K/uL (130-400); RDW Coefficient of Variation 15.6 % (11.5-14.5); RDW Standard Deviation 47.6 fL (36.4-46.3); Red Blood Count 3.56 M/uL (4.2-5.4); White Blood Count 8.53 K/uL (4.8-10.8)
[2020-09-06 10:09] LABS: BUN Creatinine Ratio 21.5 (10-20); Calcium 8.7 mg/dl (8.5-10.1); Creatinine Clr Calc Pharmacy 47.2 ml/min; Est GFR (African American) 69.1; Est GFR (Non-African American) 59.6; Potassium 3.5 mmol/L (3.5-5.1)
--- NOTE | 2020-09-06 11:20 | Ultrasound Report ---
BILATERAL LOWER EXTREMITY VENOUS DOPPLER HISTORY: Bilateral leg edema, elevated d dimer, r/o dvt COMPARISON STUDY: None. FINDINGS: There is normal compressibility, flow, and augmentation within the bilateral lower extremit y deep venous systems. IMPRESSION: No DVT within the right or left lower extremity. ACT 112: Negative or not required by law. Electronically signed by: Moo Barber M.D. 09/06/2020 11:19 AM
[2020-09-06] MEDS: ONDANSETRON INJ 2 MG/ML 2 ML VIAL IV PRN (11:25)
--- NOTE | 2020-09-06 12:37 | Surgery Consultation ---
Date of Consultation September 06, 2020 History of Present Illness Attending Physician: I spent 20 min. in face to face discussion. I preformed a head/neck/oral exam, discussion regarding chief complaint, review of past medical history, current medications, TMJ exam I review need for redoing TMJ replacements only as last resort and associated risk/complication, Nadiya does NOT want anymore surgery--I agree ordered CT scan to compare to CT in 2012 . I spent 20 min.documenting in the record. developing report, reviewing CT scans TOTAL TIME SPENT---------40 MINS. TMJ exam I have know and treated Mrs. Ortiz for many years. 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 The patient gives a recent history of myofascial pain and discomfort, limited opening and pain upon function. Symptoms include-pain on function, change in bite, noise w/in the TMJ,swelling, limited jaw movement, neck pain, stiffness, morning jaw stiffness and head pain. Past TMJ treatment---extensive surgery including rib grafting and total right TMJ replacement in [place] The ROM is ----very limited Pain is localized to the ----right side and left at times when she tries to open wider I discussed the anatomy of the TMJ disc, condyle and the function. Reviewed the need for CT scanning--to see if there are any pathologic changes associated with the Total joint on the right and the bone graft on the left. Discussed non surgical treatment such as Medication, PT, referral for more advanced treatment or surgery. Patient does not want any more surgery and I agree with this. The need for a CT scan to insure no osteo or TMJ implant rejection is medically necessary at this time The plan is for the CT w/o contrast of TMJ I suggested that Nadiya call me once she is D/C to set up an appointment at [facility] where I will review the CT findings and continue my followup. 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 C.C=Continued pain, limited/painful jaw movement, failed conservative treatment positive MRI finding--see report. CT RESULTS The scan is positive for a abnormal morphology of the bone on the left and TJR on the right There is no effusion. The CT was companied to a CT from 2011 and no changes are noted REVIEW OF CURRENT SYMPTOMS: Reviewed that given the current clinical symptoms of pain, limited opening, locking or intermittent locking The plan is to manage symptoms with pain management or consideration of redoing the joints with bilateral TMJ replacements Nadiya is not interested in any more surgery. SURGICAL OPTIONS Given the clinical findings and CT results the surgical option: Do to the joint anatomy and failed past treatment a total joint replacement is needed. I reviewed the rational behind this and that I will need to refer to to another OMS who has more experience with total joint replacement. RISKS REVIEWED continued pain, no improvement, limited opening, numbness to surgical area, facial nerve trauma from compression = facial lag to upper/lower face muscles (rare). ear problems (hearing ), scaring, need for more advanced TMJ surgery, infection, bleeding, need for PT after surgery with a specific personalized exercise program, change in occlusion ( teeth meet differently). Time was given for questions. Risks fully reviewed and understanding was expressed. Patient will decide on her options and let me know how she would like to proceed. If needed insurance pre-cert will be obtained. She will call for a follow up appointment at [facility] once she feels stronger from her most recent hospital admission Allergies Allergy/AdvReac Type Severity Reaction Status Date / Time Cephalosporins Allergy Intermediate KEFLEX = Verified 05/04/14 20:42 RASH solifenacin Allergy Unknown Jittery Unverified 05/04/14 20:42 Home Medications Medication Instructions Recorded Confirmed Type alendronate 70 mg PO WK 09/04/20 09/04/20 History atenolol 50 mg PO DAILY 09/04/20 09/04/20 History calcium glycerophosphate 65 mg PO QID 09/04/20 09/04/20 History estradiol 1 g VAGINAL 2XWK 09/04/20 09/04/20 History fentanyl 1 patch TRANSDERMAL Q72H 09/04/20 09/04/20 History furosemide 40 mg PO DAILY PRN 09/04/20 09/04/20 History gabapentin 300 mg PO HS 09/04/20 09/04/20 History hydrocodone-acetaminophen 1 tab PO Q6H PRN 09/04/20 09/04/20 History lorazepam 0.5 mg PO BID PRN 09/04/20 09/04/20 History losartan 100 mg PO DAILY 09/04/20 09/04/20 History nazm-sfcb-vqrw-m goeo-ls-xqylt 81.6 tab PO DAILY PRN 09/04/20 09/04/20 History polyethylene glycol 3350 17 g PO DAILY 09/04/20 09/04/20 History amlodipine [Norvasc] 5 mg PO QAM #30 tab 09/07/20 Rx duloxetine 60 mg PO DAILY #30 cap 09/07/20 Rx pantoprazole 40 mg PO DAILY #30 tab 09/07/20 Rx phenazopyridine [Pyridium] 100 mg PO TID PRN #20 tab 09/07/20 Rx Patient History Medical History Anemia Chronic interstitial cystitis Chronic neck pain CKD (chronic kidney disease) stage 3, GFR 30-59 ml/min Depression with anxiety History of Lyme disease History of pulmonary embolism in 30s during , hypercoag w/u negative HLD (hyperlipidemia) HTN (hypertension) T2DM (type 2 diabetes mellitus) Surgical History History of bilateral salpingo-oophorectomy (BSO) History of cystoscopy History of foot surgery R 2/2 to claw foot History of hysterectomy History of mandibular surgery hx of TMJ surgeries x 9 with eventual total joint replacement Family History Mother Myocardial infarction Coronary heart disease Hx of CABG Brother Diabetes Father Stroke Social History Smoking Status: Never smoker Tobacco Type: Cigarettes packs per day: 0.5; Years Smoked: 8; Cigarettes Per Day: 10; Hx Alcohol Use: No Hx Substance Use: No Preferred Language: Luxembourgish Communication Ability: Effective Linen Room Supervisor Required: No Beliefs That Will Affect Care: None Current Living Situation: Alone current occupational status: retired current occupation: retired RN Feels Safe at Home: Yes Assistive Devices: None Results & Data ([facility]) Vital Signs (Past 12 Hours) Vital Signs Temp Pulse Pulse Resp BP BP Pulse Ox 09/06/20 11:28 36.5 C 78 20 170/72 H 91 09/06/20 08:04 36.5 C 81 20 159/68 H 95 09/06/20 08:00 79 09/06/20 02:56 37.3 C 86 16 162/64 H 91 PG Care Time/CCT Total # of Minutes Spent Total Time Spent with Patient: Total time spent is greater than 50% in coordination of care (as documented) at patient's floor/unit and/or counseling patient: Coding Level of Care Code 41355 Initial Inpt Care Lvl 2
--- NOTE | 2020-09-06 13:56 | CT Scan Report ---
CT SCAN OF THE FACIAL BONES WITHOUT IV CONTRAST CLINICAL HISTORY: Facial pain and swelling. History of TMJ surgery, with joint replacement the right and bone grafting on the left. COMPARISON STUDY: CT of the brain dated 09/04/2020. CT of the cervical spine dated 06/13/2012. TECHNIQUE: High-resolution CT scan of the facial bones is performed. Images are reviewed in the axia l, sagittal, and coronal planes. IV contrast was not administered for this examination. A dose lower ing technique was utilized adhering to the principles of ALARA. CT DOSE: 633.85 mGy.cm FINDINGS: The skeletal structures are osteopenic. There is no evidence of facial bone fracture. The b ryan orbits are intact and the orbital contents are within normal limits noting bilateral ocular lens implants. The zygomatic arches, nasal bones, and pterygoid plates are preserved. The maxilla is intac t. There is extensive postoperative change identified in the mandible bilaterally, with bilateral but tress plates. A right TMJ joint replacement is in near anatomic alignment. There is extensive destruc tive change at the left temporomandibular joint, greatest involving the left mandibular condyle which is eroded and fragmented with foci of sclerosis. No significant stranding inflammation is identified , and these findings are similar in appearance to the 06/13/[address] There are no laye ring blood products within the paranasal sinuses. The sinuses and mastoids are clear. The visualized calvarium and upper cervical spine are maintained. Partially imaged brain parenchyma is within normal limits. The patient is edentulous. IMPRESSION: 1. No acute abnormality is identified. 2. Extensive postoperative change involving the mandible/temporomandibular joints as above. 3. A right TMJ replacement is in near-anatomic alignment. This is unchanged from a [address] 4. Extensive destructive change involving the left temporomandibular joint as above. This has also no t significantly changed from 2012. 5. No overlying soft tissue edema or inflammatory change is identified. ACT 112: Negative or not required by law. Electronically signed by: Glenroy Godwin M.D. 09/06/2020 1:55 PM
[2020-09-06] MEDS: PROMETHAZINE HCL 6.25 MG in SODIUM CHLORIDE 0.9% 50 ML IV PRN (17:09)
--- NOTE | 2020-09-06 17:24 | Hospitalist Progress Note ---
Date of Service September 06, 2020 Assessment & Plan (1) Fall: (2) Nausea & vomiting: (3) Loss of consciousness for 30 minutes to 24 hours: per admitting service notes: SYNCOPE, PRESUMED FALL This is an 80-year-old female who has significant past medical history of diet- controlled T2DM, HTN, HLD, CKD stage III baseline creatinine 1.1-1.2, chronic interstitial cystitis, chronic neck pain, history of PE in the 30s during , depression with anxiety who presents ED secondary to fall 2 days ago and nausea and vomiting for 2 days. Pt on ground for unknown duration but appears ~ 12hrs, no pre syncopal symptoms and does not recall events Likely syncopal episode of some sort with loss of bowel/bladder ddx: arrhythmia, seizure activity, fall with hit head/mild TBI (although no evidence of trauma to head/CT normal), excess pain medication, orthostatic hypotension among others CT head negative for acute abn or cva ------ Pulmonary Embolism ruled out CT angio: no PE Neurologic etiology? CT head: no acute CVA EEG: no epileptiform discharges Neurologist consulted- likely vasovagal, orthostasis from nausea, poor intake, polypharmacy Orthostatic VS Nortryptiline and Celexa discontinued Cardiac etiology Echo: EF 65-70%, no aortic stenosis Telemetry: no arrythmia so far continue to monitor closely PT/OT evaluation (4) Rhabdomyolysis: (5) Acute worsening of stage 3 chronic kidney disease: per admitting service notes: baseline cr 1.0-1.2 bun/cr 34 and 1.32 likely pre renal in setting of poor intake and on floor with rhabdo 500ml IVF bolus ordered then 80cc NSS + 20meq KCL hold statin, losartan, triamterene/hctz crea back to baseline CPK decreased from 3,600 to 2,000 to 1200 d/c IV fluids, encourage to drink plenty of fluids (6) Hypokalemia: resolved (7) Chronic neck pain: per admitting service notes: pt with chronic neck pain does not follow pain management, monitored by PCP on fentanyl patc 75mcg q72hr, prn hydrocodone/apap 10mg-325, gabapentin, cymbalta and nortriptyline - per oupt notes mostly well controlled hold prn baclofen for now give multiple sedating medications pt c/o significant pain with n/v Pain management SVC consulted continue usual Fentanyl 75mcg daily, with [place] 10/325mg PRn, Gabapentin 300mg HS Nortryptiline and Celexa discontinued Cymbalta increased to 60mg daily (8) Prolonged QT interval: qtc 488ms --> 479 on multiple qtc prolonging agents avoid qtc prolonging meds if able Nortryptiline and Celexa discontinued (9) T2DM (type 2 diabetes mellitus): diet controlled, last a1c 6.8 07/04/2020 monitor fasting bsg --> 81 (10) HTN (hypertension): bp elevated, likely in setting of missed medications continue atenolol hold losartan and triamterene/hctz 2/2 to brennon--> resume Losartan start Amlodipine 5mg po daily PRN Hydralazine IV for systolic bp > 160 (11) HLD (hyperlipidemia): on statin hold in setting of rhabdo (12) Jaw pain: history of TMJ surgeries patient requesting to consult Dr. Blanchard (13) Interstitial cystitis: reports persistent bladder pain no urinary symptoms UA no signs of UTI requesting to consult Urologist Dr. Gao--> continue PRN Meds (14) DVT prophylaxis: Sq heparin DNR Disposition: admit to med tele Follow up: PCP Dr. Graves upon discharge, also f/u abn finding on Chest CTA + R subpectoral lymph node Admission and Anticipated Discharge Date Admission Date: September 04, 2020 Subjective ff up for syncope etc seen resting in bedside chair, comfortable states she feels better overall no dizziness, headache, chest pain, palpitations, dizziness nausea resolving, no abdominal pain, (+) BMs bladder pain also much better, no urinary symptoms jaw pain about the same no other symptoms states she feels better overall Review of Systems Review of Systems: All systems reviewed & are unremarkable except as noted in Subjective Physical Exam Physical Exam: General- oriented x 3, not in distress, speaks in sentences with no effort or accessory muscle use Eyes- anicteric Neck- no JVD Lungs- clear breath sounds bilaterally, no rales/wheezes Heart- normal rate, regular rhythm; no murmurs Abdomen- normal bowel sounds, nondistended, soft, nontender no suprapubic tenderness Extremities- no pretibial edema, no calf tenderness Neuro- alert, oriented x 3; no gross focal neurologic deficits Skin- warm & dry Results & Data Results & Data ([facility]) Vital Signs (Past 12 Hours) Vital Signs Temp Pulse Pulse Resp BP BP Pulse Ox 09/06/20 16:15 37.0 C 74 19 147/67 H 91 09/06/20 16:00 69 09/06/20 11:28 36.5 C 78 20 170/72 H 91 09/06/20 08:04 36.5 C 81 20 159/68 H 95 09/06/20 08:00 79 Laboratory Results Laboratory Results - last 24 hr 09/06/20 09/06/20 09:11 09:11 WBC 8.53 RBC 3.56 L Hgb 9.5 L Hct 29.7 L MCV 83.4 MCH 26.7 MCHC 32.0 RDW Std Deviation 47.6 H RDW Coeff of Luis 15.6 H Plt Count 267 MPV 8.9 Immature Gran % (Auto) 0.8 Neut % (Auto) 66.9 Lymph % (Auto) 22.6 [place] % (Auto) 8.8 Eos % (Auto) 0.8 Baso % (Auto) 0.1 Neut # (Auto) 5.70 Lymph # (Auto) 1.93 [place] # (Auto) 0.75 H Eos # (Auto) 0.07 Baso # (Auto) 0.01 Immature Gran # (Auto) 0.07 H Sodium 138 Potassium 3.5 Chloride 102 Carbon Dioxide 27 Anion Gap 9.0 BUN 20 H Creatinine 0.91 Est Cr Clr Drug Dosing 47.2 Est GFR ( Amer) 69.1 Est GFR (Non-Af Amer) 59.6 BUN/Creatinine Ratio 21.5 H Glucose 112 H Calcium 8.7 Total Creatine Kinase 1203 H
[2020-09-06] MEDS ORDERED: LOSARTAN POTASSIUM 50 MG TAB PO SCH (17:45)
[2020-09-06] MEDS: GABAPENTIN 300 MG CAP PO SCH (20:37)
[2020-09-07] MEDS: ACETAMINOPHEN 325 MG TAB PO PRN (03:03)
[2020-09-07] MEDS: HEPARIN SOD 5,000 UNIT/0.5 ML VIAL SQ SCH (05:58)
[2020-09-07 06:44] LABS: Basophils # (auto) 0.02 K/uL (0-0.2); Basophils % (auto) 0.2 %; Eosinophils # (auto) 0.15 K/uL (0-0.5); Eosinophils % (auto) 1.6 %; Hematocrit (blood only) 30.9 % (37-47); Hemoglobin 9.7 g/dL (12.0-16.0); Immature Granulocytes # (auto) 0.11 K/uL (0.00-0.02); Immature Granulocytes % (auto) 1.2 %; Lymphocytes # (auto) 2.83 K/uL (1.2-3.4); Lymphocytes % (auto) 30.8 %; Mean Corpuscular Hemoglobin 26.3 pg (25-34); Mean Corpuscular Hgb Conc 31.4 g/dL (32-36); Mean Corpuscular Volume 83.7 fL (80-100); Mean Platelet Volume 9.3 fL (7.4-10.4); Monocytes # (auto) 0.69 K/uL (0.11-0.59); Monocytes % (auto) 7.5 %; Neutrophils # (auto) 5.39 K/uL (1.4-6.5); Neutrophils % (auto) 58.7 %; Platelet Count 282 K/uL (130-400); RDW Coefficient of Variation 15.8 % (11.5-14.5); RDW Standard Deviation 48.4 fL (36.4-46.3); Red Blood Count 3.69 M/uL (4.2-5.4); White Blood Count 9.19 K/uL (4.8-10.8)
[2020-09-07 06:59] LABS: BUN Creatinine Ratio 14.3 (10-20); Calcium 8.7 mg/dl (8.5-10.1); Creatinine Clr Calc Pharmacy 47.1 ml/min; Est GFR (African American) 69.1; Est GFR (Non-African American) 59.6; Potassium 3.4 mmol/L (3.5-5.1)
[2020-09-07] MEDS: CHECK fentaNYL PATCH PLACEMENT SCH (07:41)
[2020-09-07] MEDS: amLODIPine BESYLATE 5 MG TAB PO SCH (07:42)
[2020-09-07] MEDS: PANTOprazole 40 MG TAB PO SCH (07:42)
[2020-09-07] MEDS: DULoxetine HCL 60 MG CAP PO SCH (07:42)
[2020-09-07] MEDS: ATENOLOL 25 MG TABLET PO SCH (07:42)
[2020-09-07] MEDS: LIDOCAINE 5% 1 PATCH TD SCH (07:42)
[2020-09-07] MEDS: ONDANSETRON INJ 2 MG/ML 2 ML VIAL IV PRN (07:43)
[2020-09-07 07:52] LABS: Codeine Urine NEGATIVE ng/mL (<50); Hydrocodone Urine 137 ng/mL (<50); Hydromor Urine 64 ng/mL (<50); Morphine Urine 820 ng/mL (<50); Norhydrocodone Conf Ur 200 ng/mL (<50); Noroxycodone Urine NEGATIVE ng/mL (<50); Oxycodone Urine NEGATIVE ng/mL (<50); Oxymorph Urine NEGATIVE ng/mL (<50)
[2020-09-07] MEDS ORDERED: LOSARTAN POTASSIUM 50 MG TAB PO SCH (09:00)
[2020-09-07] MEDS: PHENAZOPYRIDINE HCL 100 MG TAB PO PRN (10:07)
--- NOTE | 2020-09-07 10:29 | Hospitalist Progress Note ---
Date of Service September 07, 2020 Assessment & Plan (1) Fall: (2) Nausea & vomiting: (3) Loss of consciousness for 30 minutes to 24 hours: per admitting service notes: SYNCOPE, PRESUMED FALL This is an 80-year-old female who has significant past medical history of diet- controlled T2DM, HTN, HLD, CKD stage III baseline creatinine 1.1-1.2, chronic interstitial cystitis, chronic neck pain, history of PE in the 30s during , depression with anxiety who presents ED secondary to fall 2 days ago and nausea and vomiting for 2 days. Pt on ground for unknown duration but appears ~ 12hrs, no pre syncopal symptoms and does not recall events Likely syncopal episode of some sort with loss of bowel/bladder ddx: arrhythmia, seizure activity, fall with hit head/mild TBI (although no evidence of trauma to head/CT normal), excess pain medication, orthostatic hypotension among others CT head negative for acute abn or cva ------ Pulmonary Embolism ruled out CT angio: no PE Neurologic etiology ruled out CT head: no acute CVA EEG: no epileptiform discharges Orthostatic VS: normal Neurologist consulted- likely vasovagal, orthostasis from nausea, poor intake Polypharmacy Nortryptiline and Celexa discontinued per Pain management recommendations Cardiac etiology Echo: EF 65-70%, no aortic stenosis Telemetry: no arrhythmia so far may need outpatient registered nurse cardiac continue to monitor closely PT/OT evaluation: recommend to return home (4) Rhabdomyolysis: (5) Acute worsening of stage 3 chronic kidney disease: per admitting service notes: baseline cr 1.0-1.2 bun/cr 34 and 1.32 likely pre renal in setting of poor intake and on floor with rhabdo given IV fluids held statin, losartan, triamterene/hctz crea back to baseline CPK decreased from 3,600 to 700 encouraged to drink plenty of fluids -- hold triamterene/hctz and Statin for now until ff up with PCP (6) Hypokalemia: resolved (7) Chronic neck pain: per admitting service notes: pt with chronic neck pain does not follow pain management, monitored by PCP on fentanyl patc 75mcg q72hr, prn hydrocodone/apap 10mg-325, gabapentin, cymbalta and nortriptyline - per oupt notes mostly well controlled hold prn baclofen for now give multiple sedating medications pt c/o significant pain with n/v Pain management SVC consulted continue usual Fentanyl 75mcg daily, with [place] 10/325mg PRn, Gabapentin 300mg HS Nortryptiline and Celexa discontinued Cymbalta increased to 60mg daily (8) Prolonged QT interval: qtc 488ms --> 479 on multiple qtc prolonging agents avoid qtc prolonging meds if able Nortryptiline and Celexa discontinued (9) T2DM (type 2 diabetes mellitus): diet controlled, last a1c 6.8 07/04/2020 fasting bsg --> 81 (10) HTN (hypertension): held losartan and triamterene/hctz 2/2 to brennon resume Losartan hold triamterene/hctz--> replace with Amlodipine 5mg po daily for now continue atenolol ff up with PCP this week (11) HLD (hyperlipidemia): on statin hold in setting of rhabdo (12) Jaw pain: history of TMJ surgeries Oromaxillofacial surgeon consulted- Dr. Blanchard CT Jaw: unchanged from 2011 outpatient ff up with Dr. Blanchard (13) Interstitial cystitis: reported persistent bladder pain no urinary symptoms UA no signs of UTI requesting to consult Urologist Dr. Gao--> continue PRN Pyridium bladder pain improved with Pyrdium PRN (14) Abnormal CT scan, chest: seen on CT angio of the chest (please refer to full report in the Ordered Studies section) - There is a minimally enlarged 13 x 12 mm right subpectoral lymph node. Mediastinal lymph nodes remaining at the upper limits of normal in size. - outpatient work up and ff up (15) DVT prophylaxis: Sq heparin given DNR Disposition: d/c home with home health services ff up with PCP in 1 week Follow up: PCP Dr. Graves upon discharge, also f/u abn finding on Chest CTA + R subpectoral lymph node Admission and Anticipated Discharge Date Admission Date: September 04, 2020 Subjective ff up for syncope, etc seen resting in chair, comfortable not in distress bright, conversant, oriented x 3 states she feels much better overall ambulating with no problems nausea resolved, tolerating diet well bladder pain also much improved denies chest pain, dyspnea, dizziness, palpitations no other symptoms states she is ready and would like to be discharged today Review of Systems Review of Systems: All systems reviewed & are unremarkable except as noted in Subjective Physical Exam Physical Exam: General- oriented x 3, not in distress, speaks in sentences with no effort or accessory muscle use Eyes- anicteric Neck- no JVD Lungs- clear breath sounds bilaterally, no wheezing no crackles Heart- normal rate, regular rhythm; no murmurs Abdomen- normal bowel sounds, nondistended, soft, nontender Extremities- no pretibial edema, no calf tenderness Neuro- alert, oriented x 3; no gross focal neurologic deficits Skin- warm & dry Results & Data Results & Data ([facility]) Vital Signs (Past 12 Hours) Vital Signs Temp Pulse Pulse Resp BP BP Pulse Ox 09/07/20 08:00 36.9 C 77 18 182/68 H 93 09/07/20 07:32 76 09/07/20 04:44 150/76 H 09/07/20 03:46 36.8 C 80 20 185/69 H 95 09/07/20 00:15 63 09/07/20 00:10 37.2 C 75 20 150/60 H 92 Laboratory Results Laboratory Results - last 24 hr 09/04/20 09/07/20 09/07/20 17:05 06:00 06:00 WBC 9.19 RBC 3.69 L Hgb 9.7 L Hct 30.9 L MCV 83.7 MCH 26.3 MCHC 31.4 L RDW Std Deviation 48.4 H RDW Coeff of Luis 15.8 H Plt Count 282 MPV 9.3 Immature Gran % (Auto) 1.2 Neut % (Auto) 58.7 Lymph % (Auto) 30.8 [place] % (Auto) 7.5 Eos % (Auto) 1.6 Baso % (Auto) 0.2 Neut # (Auto) 5.39 Lymph # (Auto) 2.83 [place] # (Auto) 0.69 H Eos # (Auto) 0.15 Baso # (Auto) 0.02 Immature Gran # (Auto) 0.11 H Sodium 136 Potassium 3.4 L Chloride 100 Carbon Dioxide 29 Anion Gap 7.0 BUN 13 Creatinine 0.91 Est Cr Clr Drug Dosing 47.1 Est GFR ( Amer) 69.1 Est GFR (Non-Af Amer) 59.6 BUN/Creatinine Ratio 14.3 Glucose 95 Calcium 8.7 Iron Total Creatine Kinase 727 H U Codeine Confrm GC/MS NEGATIVE Ur Morphine (GC/MS) 820 H Ur Hydrocodone (GC/MS) 137 H Ur Norhydrocodone 200 H Ur Noroxycodone NEGATIVE Urine Oxycodone (GC/MS) NEGATIVE U Oxymorphone GC/MS NEGATIVE Ur Hydromorphone (GC/MS) 64 H Drug Screen Comment SEE NOTE 09/07/20 06:00 WBC RBC Hgb Hct MCV MCH MCHC RDW Std Deviation RDW Coeff of Luis Plt Count MPV Immature Gran % (Auto) Neut % (Auto) Lymph % (Auto) [place] % (Auto) Eos % (Auto) Baso % (Auto) Neut # (Auto) Lymph # (Auto) [place] # (Auto) Eos # (Auto) Baso # (Auto) Immature Gran # (Auto) Sodium Potassium Chloride Carbon Dioxide Anion Gap BUN Creatinine Est Cr Clr Drug Dosing Est GFR ( Amer) Est GFR (Non-Af Amer) BUN/Creatinine Ratio Glucose Calcium Iron 61 Total Creatine Kinase U Codeine Confrm GC/MS Ur Morphine (GC/MS) Ur Hydrocodone (GC/MS) Ur Norhydrocodone Ur Noroxycodone Urine Oxycodone (GC/MS) U Oxymorphone GC/MS Ur Hydromorphone (GC/MS) Drug Screen Comment
--- NOTE | 2020-09-07 10:59 | Discharge Summary ---
Date of Service September 07, 2020 Admission HPI Per Admitting Provider This is an 80-year-old female who has significant past medical history of diet- controlled T2DM, HTN, HLD, CKD stage III baseline creatinine 1.1-1.2, chronic interstitial cystitis, chronic neck pain, history of PE in the 30s during , depression with anxiety who presents ED secondary to fall 2 days ago and nausea and vomiting for 2 days. On Wednesday patient last remembers talking to her friend at approximately 11 AM. She then woke up on bathroom floor at approximately 3-4 AM the following morning. She is unsure how she got there and she does not recall events prior to that. She knows she fell but unsure if she had any presyncopal symptoms or possible seizure-like activity. Event was unwitnessed. When she woke up she did soil herself and was wet from urine. She was able to get up herself and take half of a bath. She did not want to get her fentanyl patch wet. Ever since lying on the ground she has been nauseated and dry heaving and in significant pain. She also has had multiple loose bowel movements, but this morning had a regular BM. Prior to fall she denies any recent illness, fever, chills, sweats, dizziness, lightheadedness, chest pain, shortness of breath, cough, URI symptoms, dysuria, increased urgency or frequency with urination, melena or hematochezia. She does have chronic, "bladder pain." She has chronic interstitial cystitis. She also suffers from chronic pain and is on 75 mcg fentanyl patch every 72 hours. She is unsure when her last patch was placed, but did know she needs a new one. She also takes as needed Lortab approximately once daily. She is also on Cymbalta, gabapentin and nortriptyline. She states she has not taken any medication for the past 2 days. She also has not ate or drank. Has never had similar event in past. In ED she remained hemodynamically stable. She was found to have mild BRENNON with elevation in Cr to 1.3, [place] [address], elevated ast 160, K 3.1, h/h 11.0 and 33.6 and d dimer 1560. Head CT was without acute abnormality. Cervical spine CT revealed multiple degenerative changes but no acute abnormality. Chest CT was negative for PE but did show right enlarged subpectoral lymph node. Pelvis x- ray was negative for fracture. In ED she received IV Zofran with 2 mg of IV morphine. Daughter at bedside. Admission Exam Per Admitting Provider Constitutional: Elderly, F, appears in pain and is retching, lying in left lateral decub position, WD/WN, vitals as above, answers questions approp Head: Normocephalic, Atraumatic Eyes: PERRL, conjunctivae normal, anicteric sclerae ENMT: external ear and nose normal, oropharynx normal Neck: trachea midline, no thyromegaly normal visual inspection Respiratory: normal respiratory effort, lungs clear to auscultation, no wheeze, rales, rhonchi. Normal insp/exp effort, no accessory muscle use Cardiovascular: RRR, 2/6 roland noted RUSB, no murmur, no trace pre tibial edema Vessels: no JVD or carotid bruit Chest: normal inspection of chest Abdomen: normal bowel sounds, soft, nontender, no hepatosplenomegaly Musculoskeletal: no cyanosis or clubbing, extremities motor strength 5/5, pain to palpation to paraspinal musculature of neck but otherwise full rom Skin: no rashes, warm and dry normal turgor Neurologic: PERRL, EOMI, accommodation nl, no face palsy, no dysarthria CN's II-XI intact bilaterally and moves all extremities Psychiatric: A+Ox3, dysthymic affect : deferred Principal Diagnosis SYNCOPE, PRESUMED FALL POSSIBLE VASOVAGAL REFLEX FROM NAUSEA, POLYPHARMACY MILD RHABDOMYOLYSIS Discharge Exam General- oriented x 3, not in distress, speaks in sentences with no effort or accessory muscle use Eyes- anicteric Neck- no JVD Lungs- clear breath sounds bilaterally, no wheezing no crackles Heart- normal rate, regular rhythm; no murmurs Abdomen- normal bowel sounds, nondistended, soft, nontender Extremities- no pretibial edema, no calf tenderness Neuro- alert, oriented x 3; no gross focal neurologic deficits Skin- warm & dry Discharge Data Allergies Allergy/AdvReac Type Severity Reaction Status Date / Time Cephalosporins Allergy Intermediate KEFLEX = Verified 05/04/14 20:42 RASH solifenacin Allergy Unknown Jittery Unverified 05/04/14 20:42 Consultations 09/04/20 12:01 ED Decision to Admit Stat 09/04/20 13:12 Consult Neurology Routine Consult Pain Management Routine 09/04/20 13:21 Consult Case Management - Discharge Planning Routine 09/05/20 11:20 Consult Gastroenterology Routine 09/05/20 12:46 Consult Oromaxillofacial Surgery Routine Consult Urology Routine Ordered Studies 09/04/20 09:40 CT cervical spine wo con Stat FINDINGS: The visualized portions of the lung apices reveal no evidence of pneumothorax. Postsurgical changes involve both mandibles. The prevertebral soft tissues are normal. No fractures or subluxations are visualized. There are multilevel degenerative changes IMPRESSION: No evidence of acute fracture or traumatic subluxation. CT head/brain wo con Stat FINDINGS: No intra or extra-axial mass lesions are visualized. There is no CT evidence of acute cortical infarction. There is no evidence of midline shift. There is no acute hemorrhage. No calvarial fractures are visualized. There are patchy white matter hypodensities likely on a small vessel basis. There is no evidence of pathologic ventricular dilatation. There is no evidence of acute sinusitis. There are postsurgical changes involving both mandibles. IMPRESSION: No acute intracranial findings 09/04/20 10:42 CT angio chest PE protocol Stat There is a minimally enlarged 13 x 12 mm right subpectoral lymph node. Mediastinal lymph nodes remaining at the upper limits of normal in size. There was no evidence of thoracic aortic dilatation. There were no pulmonary artery filling defects to indicate acute pulmonary embolism. No pleural effusions are visualized. There is mild subpleural reticulation. There is stable subpleural right lower lobe atelectasis/scarring. There is stable biapical pleural and parenchymal scarring. IMPRESSION: 1. No evidence of acute pulmonary embolism 2. No evidence of acute parenchymal consolidation 3. Mildly enlarged right subpectoral lymph node 09/04/20 14:00 US carotid doppler BI Routine IMPRESSION: 1. Approximately 50-69% stenosis within the proximal right internal carotid artery due to the calcified plaque. 2. No significant stenosis within the left carotid arteries. 09/06/20 11:00 US venous doppler LE BI Routine FINDINGS: There is normal compressibility, flow, and augmentation within the bilateral lower extremity deep venous systems. IMPRESSION: No DVT within the right or left lower extremity. 09/06/20 12:23 CT facial bones wo con Routine FINDINGS: The skeletal structures are osteopenic. There is no evidence of facial bone fracture. The bony orbits are intact and the orbital contents are within normal limits noting bilateral ocular lens implants. The zygomatic arches, nasal bones, and pterygoid plates are preserved. The maxilla is intact. There is extensive postoperative change identified in the mandible bilaterally, with bilateral buttress plates. A right TMJ joint replacement is in near anatomic alignment. There is extensive destructive change at the left temporomandibular joint, greatest involving the left mandibular condyle which is eroded and fragmented with foci of sclerosis. No significant stranding inflammation is identified, and these findings are similar in appearance to the 06/13/[address] There are no layering blood products within the paranasal sinuses. The sinuses and mastoids are clear. The visualized calvarium and upper cervical spine are maintained. Partially imaged brain parenchyma is within normal limits. The patient is edentulous. IMPRESSION: 1. No acute abnormality is identified. 2. Extensive postoperative change involving the mandible/temporomandibular roldan ints as above. 3. A right TMJ replacement is in near-anatomic alignment. This is unchanged from a [address] 4. Extensive destructive change involving the left temporomandibular joint as above. This has also not significantly changed from 2012. 5. No overlying soft tissue edema or inflammatory change is identified. Hospital Course (1) Fall: (2) Nausea & vomiting: (3) Loss of consciousness for 30 minutes to 24 hours: per admitting service notes: SYNCOPE, PRESUMED FALL POSSIBLE VASOVAGAL REFLEX FROM NAUSEA; POLYPHARMACY; DEHYDRATION MILD RHABDOMYOLYSIS This is an 80-year-old female who has significant past medical history of diet- controlled T2DM, HTN, HLD, CKD stage III baseline creatinine 1.1-1.2, chronic interstitial cystitis, chronic neck pain, history of PE in the 30s during , depression with anxiety who presents ED secondary to fall 2 days ago and nausea and vomiting for 2 days. Pt on ground for unknown duration but appears ~ 12hrs, no pre syncopal symptoms and does not recall events Likely syncopal episode of some sort with loss of bowel/bladder ddx: arrhythmia, seizure activity, fall with hit head/mild TBI (although no evidence of trauma to head/CT normal), excess pain medication, orthostatic hypotension among others CT head negative for acute abn or cva ------ Pulmonary Embolism ruled out CT angio: no PE Neurologic etiology ruled out CT head: no acute CVA EEG: no epileptiform discharges Orthostatic VS: normal Neurologist consulted- likely vasovagal, orthostasis from nausea, poor intake Polypharmacy Nortryptiline and Celexa discontinued per Pain management recommendations Cardiac etiology Echo: EF 65-70%, no aortic stenosis Telemetry: no arrhythmia so far may need outpatient residential monitor PT/OT evaluation: recommend to return home (4) Rhabdomyolysis: (5) Acute worsening of stage 3 chronic kidney disease: per admitting service notes: baseline cr 1.0-1.2 bun/cr 34 and 1.32 likely pre renal in setting of poor intake and on floor with rhabdo given IV fluids held statin, losartan, triamterene/hctz crea back to baseline CPK decreased from 3,600 to 700 encouraged to drink plenty of fluids -- hold triamterene/hctz and Statin for now until ff up with PCP (6) Hypokalemia: resolved (7) Carotid stenosis, right: Approximately 50-69% stenosis within the proximal right internal carotid artery due to the calcified plaque. -- further management and ff up as outpatient (8) Abnormal CT scan, chest: seen on CT angio of the chest (please refer to full report in the Ordered Studies section) - There is a minimally enlarged 13 x 12 mm right subpectoral lymph node. Mediastinal lymph nodes remaining at the upper limits of normal in size. - outpatient work up and ff up (9) Chronic neck pain: per admitting service notes: pt with chronic neck pain does not follow pain management, monitored by PCP on fentanyl patc 75mcg q72hr, prn hydrocodone/apap 10mg-325, gabapentin, cymbalta and nortriptyline - per oupt notes mostly well controlled hold prn baclofen for now give multiple sedating medications pt c/o significant pain with n/v Pain management SVC consulted continue usual Fentanyl 75mcg daily, with [place] 10/325mg PRn, Gabapentin 300mg HS Nortryptiline and Celexa discontinued Cymbalta increased to 60mg daily (10) Prolonged QT interval: qtc 488ms --> 479 on multiple qtc prolonging agents avoid qtc prolonging meds if able Nortryptiline and Celexa discontinued (11) T2DM (type 2 diabetes mellitus): diet controlled, last a1c 6.8 07/04/2020 fasting bsg --> 81 (12) HTN (hypertension): held losartan and triamterene/hctz 2/2 to brennon crea back to baseline, resumed Losartan hold triamterene/hctz--> replace with Amlodipine 5mg po daily for now continue atenolol ff up with PCP this week (13) HLD (hyperlipidemia): on statin held in setting of rhabdo (14) Jaw pain: history of TMJ surgeries Oromaxillofacial surgeon consulted- Dr. Blanchard CT Jaw: unchanged from 2012 outpatient ff up with Dr. Blanchard (15) Interstitial cystitis: reported persistent bladder pain no urinary symptoms UA no signs of UTI requesting to consult Urologist Dr. Gao--> continue PRN Pyridium bladder pain improved with Pyrdium PRN (16) DVT prophylaxis: Sq heparin given DNR Disposition: d/c home with home health services ff up with PCP in 1 week Follow up: PCP Dr. Jo upon discharge Total Time Total Time Spent Total Time Spent (In Minutes): > 30 minutes Discharge Plan Discharge Items Patient Disposition: Home - Home Health Services Reason For Visit: RHABDOMYOLYSIS Discharge Diagnosis: s/p FALL POSSIBLE VASOVAGAL SYNCOPE FROM NAUSEA, POLYPHARMACY Activity: Resume your previous activity Activity Comment: GRADUALLY TOLERATED Lifting: Wait until after follow-up appointment Exercise/Sports: Wait until after follow-up appointment Driving/Machine Use: NO DRIVING UNTIL REEVALUATED AND ALLOWED BY PRIMARY CARE PHYSICIAN. Non-emergency contact: Primary Care Provider Call non-emergency contact if: you have any medication questions, your symptoms worsen, your pain is not controlled, your pain is worsening, your pain is unusual for you, your pain is concerning for you and you have a fever Follow-up/Referrals: Ezequiel Jo MD [Primary Care Provider] - Diet: Heart Healthy Addtl Attending Provider Instructions: PLEASE REVIEW YOUR NEW MEDICATION LIST AND FOLLOW INSTRUCTIONS CAREFULLY. HOLD TRIAMTERENE/HCTZ AND ATORVASTATIN FOR NOW UNTIL RE-EVALUATED BY DR. JO. CALL PRIMARY CARE PHYSICIAN IMMEDIATELY IF YOU HAVE WORSENING OF SYMPTOMS INCLUDING LEG SWELLING, SHORTNESS OF BREATH ABDOMINAL PAIN ,NAUSEA/VOMITING BLADDER PAIN, PROBLEMS WITH URINATION WORSENING OF JAW PAIN DIZZINESS, PALPITATIONS, CHEST PAIN KEEP WELL HYDRATED. FOLLOW UP WITH PRIMARY CARE PHYSICIAN IN 1 WEEK. THE CLINIC WILL CALL YOU SOON FOR AN APPOINTMENT. Pending Studies at Discharge: No Stand-Alone Forms: My [facility], Smoking Cessation Medications and DC Order Prescriptions: New amlodipine [Norvasc] 5 mg Tablet 5 mg PO QAM Qty: 30 RF: 2 duloxetine 60 mg Capsule,Delayed Release(Dr/Ec) 60 mg PO DAILY Qty: 30 RF: 0 pantoprazole 40 mg Tablet,Delayed Release (Dr/Ec) 40 mg PO DAILY Qty: 30 RF: 0 phenazopyridine [Pyridium] 100 mg Tablet 100 mg PO TID PRN (Reason: BLADDER PAIN) Qty: 20 RF: 0 Continued furosemide 40 mg Tablet 40 mg PO DAILY PRN (Reason: edema) RF: 0 polyethylene glycol 3350 17 gram Powder In Packet 17 g PO DAILY RF: 0 alendronate 70 mg tablet 70 mg PO WK RF: 0 [id number]-m [id number]-[id number] 81.6-0.06-.06-9 mg Tablet 81.6 tab PO DAILY PRN (Reason: Bladder Spasms) RF: 0 hydrocodone-acetaminophen 10-325 mg Tablet 1 tab PO Q6H PRN (Reason: Breakthrough Pain) RF: 0 lorazepam 0.5 mg Tablet 0.5 mg PO BID PRN (Reason: Anxiety) RF: 0 gabapentin 300 mg Capsule 300 mg PO HS RF: 0 estradiol 0.01 % (0.1 mg/gram) Cream 1 g vaginal 2XWK RF: 0 fentanyl 75 mcg/hr Patch 72 Hour 1 patch TRANSDERMAL Q72H RF: 0 losartan 100 mg Tablet 100 mg PO DAILY RF: 0 atenolol 50 mg tablet 50 mg PO DAILY RF: 0 calcium glycerophosphate 65 mg Tablet 65 mg PO QID RF: 0 Discontinued atorvastatin 40 mg Tablet 40 mg PO DAILY RF: 0 omeprazole 40 mg Capsule,Delayed Release(Dr/Ec) 40 mg PO DAILY RF: 0 triamterene-hydrochlorothiazid 37.5-25 mg Capsule 1 cap PO DAILY RF: 0 citalopram 20 mg Tablet 20 mg PO DAILY RF: 0 baclofen 10 mg Tablet 10 mg PO HS PRN (Reason: Muscle Spasm) RF: 0 gabapentin 100 mg Capsule 100 mg PO BID PRN (Reason: Pain) RF: 0 nortriptyline 50 mg Capsule 50 mg PO HS RF: 0 duloxetine [Cymbalta] 20 mg Capsule,Delayed Release(Dr/Ec) 20 mg PO DAILY RF: 0 Discharge Orders: Discharge Order (Routine); Ordered 09/07/20 Ordered By: Doug Fowler Admission Data Admit Date/Time: 09/04/20 12:18 Attending Provider: Doug Fowler Admit Provider: Jose Marshall Primary Care Provider: Ezequiel Jo Other Providers: Jose Marshall ; Carlos Townsend ; Malou Calix ; Ray Carnes ; Michael Blanchard ; Tk Gao ; [facility] Other Interventions: Discharge Summary Assessment (RN) Last Done: 09/07/20 10:57
== END 2020-09-07 12:49 | disposition home health service (06) | DRG 312 ==
LOC: ED 09:22 → 2N 12:18 → SUATTDRO 12:18 → 2N 12:47

== ENCOUNTER 2022-08-06 11:24 | Inpatient (IN) ==
[2022-08-06] MEDS ORDERED: SODIUM CHLORIDE 0.9% 500 ML IV STA (11:49)
[2022-08-06] MEDS ORDERED: ONDANSETRON INJ 2 MG/ML 2 ML VIAL IV STA ×2 (11:49→16:15)
--- NOTE | 2022-08-06 12:06 | Emergency Department Note ---
Impression & Plan Intractable cyclical vomiting, Abdominal pain, Contusion of knee, left, Contusion of foot, left ED Provider Note NAME: GEMINI POLANCO AGE: 82 SEX: F : 1940 ARRIVES VIA: Ambulance INFORMANT: Patient, EMS, the patient's daughter ED PROVIDER(S): González Carter DO CHIEF COMPLAINT: Fall HPI: The patient is an 82-year-old female who presented to the emergency department by ambulance with multiple complaints. The patient's daughter pr esented to the emergency department as well to give more the history. Apparently the patient's been having problems with chronic left lower quadrant abdominal pain. She has had blocks as well as injections as well as multiple tests to determine the cause of this discomfort but no cause was found. Patient's been having problems with nausea and vomiting. She also describes chest pain. She also complains of left leg pain from a fall. The patient fell striking her left knee as well as her left foot. She is been compliant with her outpatient medications. She called 911 today to be seen. ROS: See above HPI for pertinent positives & negatives. A total of 10 systems reviewed and were otherwise negative. PAST MEDICAL HISTORY: See Below PAST SURGICAL HISTORY: See Below FAMILY HISTORY: See Below SOCIAL HISTORY: See Below HOME MEDICATIONS: See Below ALLERGIES: See Below VITALS: See Below PHYSICAL EXAMINATION: GENERAL: Patient is awake alert in no acute distress patient is resting comfortably and showing no signs of anxiety EYES: The conjunctivae are clear. The pupils are round and reactive. EARS, NOSE, MOUTH AND THROAT: The nose is without any evidence of any deformity. NECK: The neck is nontender and supple. RESPIRATORY: Normal respiratory effort is noted there is no evidence of wheezing rhonchi or rales CARDIOVASCULAR: Regular rate and rhythm noted there no murmurs rubs or gallops normal S1 normal S2. GASTROINTESTINAL: The abdomen is soft and mildly distended. There is left-sided tenderness to palpation but no guarding rigidity. BACK: No midline tenderness or or step-off noted range of motion in flexion extension as well as rotation no signs of muscle spasm noted MUSCULOSKELETAL/EXTREMITIES: There is no evidence of gross deformity full range of motion is noted in the hips and shoulders. There is ecchymosis noted over the left knee. There is pain with range of motion testing but no deformity or swelling. There is also ecchymosis over the left foot over the left second toe. There was tenderness to palpation. SKIN: Skin was warm and dry. Trace pedal edema was noted bilaterally. NEUROLOGIC: Patient is awake alert and oriented x3 strength is symmetric patellar reflexes are 2+ bilaterally MEDICAL DECISION MAKING: Is an 82-year-old female who presented to the emergency department with multiple complaints. The patient was complaining of chest pain as well as abdominal pain. She does have a history of chronic abdominal pain and nausea. This is been evaluated multiple times with specialist. Ultimately she was placed on a fentanyl patch and states that she has been using it without any minimal relief of her symptoms. The patient was treated with IV fluids in the emergency d epartment. She was also treated with IV antiemetics because of the degree of nausea that she is been having. She was feeling somewhat better on reevaluation but still had significant symptoms. I am concerned she may not be able to tolerate her outpatient medication regimen. For this reason I [facility] have agreed to evaluate the patient in the emergency department for further management and disposition. Triage Nursing notes reviewed. Prior medical records reviewed Vital Signs: reviewed and remarkable for elevated blood pressure. Differential diagnosis: Etiologies such as appendicitis, diverticulitis, obstruction, inflammatory bowel disease, renal colic, PUD, biliary pathology, pancreatitis, mesenteric ischemia, aortic pathology, infections, genitourinary, UTI, perforated viscus, as well as others were entertained. ER treatment provided: See below Diagnostics interpreted by me: ECG: EKG was obtained in the emergency department. My interpretation is normal sinus rhythm at 81 bpm. There is no ectopy. There is no acute ST segment abnormalities noted. This was compared to a tracing from September 26, 2020. No changes were noted. Cardiac Monitoring: An order was placed for continuous cardiac monitoring. The monitor shows a rate of 84 bpm with sinus rhythm. Laboratory studies: As stated above and show below. Imaging studies: See below. Radiographic imaging was reviewed by myself Consultation(s): I discussed this case with Janette who [facility]. Past Med/Surg History Medical History Anemia Chronic interstitial cystitis Chronic neck pain CKD (chronic kidney disease) stage 3, GFR 30-59 ml/min Depression with anxiety Diabetic peripheral neuropathy associated with type 2 diabetes mellitus Foot deformity History of Lyme disease History of pulmonary embolism in 30s during , hypercoag w/u negative HLD (hyperlipidemia) HTN (hypertension) Loss of protective sensation of skin of foot Posterior tibial tendon dysfunction T2DM (type 2 diabetes mellitus) Surgical History History of bilateral salpingo-oophorectomy (BSO) History of cystoscopy History of foot surgery R 2/2 to claw foot History of hysterectomy History of mandibular surgery hx of TMJ surgeries x 9 with eventual total joint replacement Family History Mother Myocardial infarction Coronary heart disease Hx of CABG Brother Diabetes Father Stroke Social History Smoking Status: Former smoker Tobacco Type: Cigarettes packs per day: 0.5; Cigarettes Per Day: 10; Hx Alcohol Use: No Hx Substance Use: No Preferred Language: Bots[place] Communication Ability: Effective Associate Scientist Required: No Beliefs That Will Affect Care: None Current Living Situation: Alone current occupational status: retired current occupation: retired RN Feels Safe at Home: Yes Assistive Devices: None Allergies Allergies Allergy/AdvReac Type Severity Reaction Status Date / Time AVNI Inhibitors Allergy Severe Anaphylaxis Verified 11/23/20 16:33 Cephalosporins Allergy Intermediate KEFLEX = Verified 11/23/20 16:33 RASH solifenacin AdvReac Mild Jittery Verified 11/23/20 16:33 Home Meds Home Medications Medication Instructions Recorded Confirmed atenolol 50 mg tablet 25 mg PO DAILY 09/04/20 11/23/20 calcium glycerophosphate 65 mg 65 mg PO QID PRN WHEN DRINKS 09/04/20 11/23/20 tablet COFFEE OR TEA. fentanyl 75 mcg/hr transdermal 1 patch transdermal Q72H 09/04/20 11/23/20 patch furosemide 40 mg tablet 40 mg PO DAILY PRN edema 09/04/20 11/23/20 gabapentin 300 mg capsule 300 mg PO HS 09/04/20 11/23/20 hydrocodone 10 mg-acetaminophen 1 tab PO Q6H PRN Breakthrough Pain 09/04/20 11/23/20 325 mg tablet lorazepam 0.5 mg tablet 0.5 mg PO HS PRN Anxiety 09/04/20 11/23/20 losartan 100 mg tablet 100 mg PO DAILY 09/04/20 11/23/20 oznb-hvah-vntx-m kecw-ie-matje 81.6 tab PO DAILY PRN Bladder 09/04/20 11/23/20 81.6 mg-0.06 mg-0.06 mg-9mg tablet Spasms polyethylene glycol 3350 17 gram 17 g PO DAILY PRN Constipation 09/04/20 11/23/20 oral powder packet pantoprazole 40 mg tablet,delayed 40 mg PO DAILYBB 09/26/20 11/23/20 release naproxen 500 mg tablet (Naprosyn) 500 mg PO BID 11/23/20 11/23/20 ondansetron HCl 4 mg tablet 4 mg PO Q8H PRN Nausea 11/23/20 11/23/20 (Zofran) triamterene 37.5 1 cap PO DAILY 11/23/20 11/23/20 mg-hydrochlorothiazide 25 mg capsule Previous Rx's Medication Instructions Recorded amlodipine 5 mg tablet (Norvasc) 5 mg PO QAM #30 tabs 09/07/20 duloxetine 60 mg capsule,delayed 60 mg PO DAILY #30 caps 09/07/20 release phenazopyridine 100 mg tablet 100 mg PO TID PRN BLADDER PAIN #20 09/07/20 (Pyridium) tabs epinephrine 0.3 mg/0.3 mL 0.3 mg (0.3 mL) IM Q1H PRN 09/26/20 injection, auto-injector (EpiPen) anaphylaxis #1 ea methocarbamol 500 mg tablet 500 mg PO TID PRN muscle spasm #10 11/23/20 tabs tamsulosin 0.4 mg capsule 0.4 mg PO DAILY #10 caps 11/23/20 Results & Data (ED) Vital Signs Vital Signs - 24 hr 08/06/22 11:45 08/06/22 13:14 08/06/22 13:42 Temperature 36.7 C Temperature Source Oral Pulse Rate 80 Pulse Rate [Left Finger] 71 Pulse Rhythm [Left Finger] Regular Pulse Strength [Left Finger] Normal Respiratory Rate 18 19 Respiratory Effort / Characteristics Non-Labored Spontaneous Non-Labored Spontaneous Respiratory Depth Normal Normal Respiratory Pattern Regular Regular Blood Pressure 183/71 H Blood Pressure [Right Arm] 170/63 H Blood Pressure Mean 108 Blood Pressure Mean [Right Arm] 98 Blood Pressure Position [Right Arm] Lying Pulse Oximetry 95 93 95 Oxygen Delivery Method Room Air Room Air Room Air Sepsis Recent Fever Within 48 Hours No Sepsis New/Unexplained Change in Mental Status No Sepsis Action Taken by Nursing No Action Required 08/06/22 15:02 Temperature Temperature Source Pulse Rate Pulse Rate [Left Finger] 84 Pulse Rhythm [Left Finger] Regular Pulse Strength [Left Finger] Normal Respiratory Rate 19 Respiratory Effort / Characteristics Non-Labored Spontaneous Respiratory Depth Normal Respiratory Pattern Regular Blood Pressure Blood Pressure [Right Arm] 164/70 H Blood Pressure Mean Blood Pressure Mean [Right Arm] 101 Blood Pressure Position [Right Arm] Pulse Oximetry 94 Oxygen Delivery Method Room Air Sepsis Recent Fever Within 48 Hours Sepsis New/Unexplained Change in Mental Status Sepsis Action Taken by [facility] Medications Current Medication List: was personally reviewed by me Laboratory Data Attestation: I reviewed the patient's lab results. 08/06/22 11:35 08/06/22 11:35 Lab Results 08/06/22 08/06/22 08/06/22 Range/Units 11:35 11:35 12:54 WBC 11.77 H (4.8-10.8) K/ul RBC 5.33 H (3.93-5.22) M/uL Hgb 15.2 (12.0-16.0) g/dl Hct 45.3 H (34.1-44.9) % MCV 85.0 (80.0-100.0) fL MCH 28.5 (25.0-34.0) pg MCHC 33.6 (32.0-36.0) g/dL RDW Std Deviation 43.2 (36.4-46.3) fL RDW Coeff of Luis 14.0 (11.5-14.5) % Plt Count 291 (130-400) K/uL MPV 10.1 (9.4-12.3) fL Immature Gran % (Auto) 0.3 % Neut % (Auto) 77.6 % Lymph % (Auto) 15.8 % [place] % (Auto) 5.3 % Eos % (Auto) 0.7 % Baso % (Auto) 0.3 % Neut # (Auto) 9.14 H (1.4-6.5) K/uL Lymph # (Auto) 1.86 (1.2-3.4) K/uL [place] # (Auto) 0.62 (0.24-0.82) K/uL Eos # (Auto) 0.08 (0-0.50) K/uL Baso # (Auto) 0.04 (0-0.2) K/uL Immature Gran # (Auto) 0.03 H (0.00-0.02) K/uL Sodium 136 (136-145) mmol/L Potassium TNP 3.9 Chloride 100 (98-107) mmol/L Carbon Dioxide 25 (21-32) mmol/L Anion Gap 11 (3-11) BUN 13 (6-23) mg/dl Creatinine 0.71 (0.6-1.2) mg/dl Est Cr Clr Drug Dosing 59.4 ml/min Est GFR ( Amer) 91.9 ml/min Est GFR (Non-Af Amer) 79.3 ml/min BUN/Creatinine Ratio 18.3 (10-20) Glucose 130 H (70-99(Fasting)) mg/dl Calcium 9.4 (8.5-10.1) mg/dl Total Bilirubin 0.7 (0.2-1.0) mg/dl AST TNP 27 ALT 26 (7-52) U/L Alkaline Phosphatase 89 (34-104) U/L Troponin I High Sens 12.1 (0-14) pg/ml Total Protein 8.4 H (6.0-8.3) gm/dl Albumin 4.3 (3.4-5.0) gm/dl Globulin 4.1 H (2.5-4.0) gm/dl Albumin/Globulin Ratio 1.0 (0.9-2) Lipase 13 (11-82) U/L Urine Color Urine Appearance (Clear) Urine pH (4.5-7.5) Ur Specific Neal (1.000-1.030) Urine Protein (Negative) Urine Glucose (UA) (Negative) Urine Ketones (Negative) Urine Blood (Negative) Urine Nitrite (Negative) Urine Bilirubin (Negative) Urine Urobilinogen (Negative) Ur Leukocyte Esterase (Negative) Urine WBC (Auto) (0-5) /hpf Urine RBC (Auto) (0-4) /hpf U Hyaline Cast (Auto) (0-5) /lpf U Epithel Cells (Auto) (0-5) /lpf Urine Bacteria (Auto) (Negative) 08/06/22 Range/Units 13:45 WBC (4.8-10.8) K/ul RBC (3.93-5.22) M/uL Hgb (12.0-16.0) g/dl Hct (34.1-44.9) % MCV (80.0-100.0) fL MCH (25.0-34.0) pg MCHC (32.0-36.0) g/dL RDW Std Deviation (36.4-46.3) fL RDW Coeff of Luis (11.5-14.5) % Plt Count (130-400) K/uL MPV (9.4-12.3) fL Immature Gran % (Auto) % Neut % (Auto) % Lymph % (Auto) % [place] % (Auto) % Eos % (Auto) % Baso % (Auto) % Neut # (Auto) (1.4-6.5) K/uL Lymph # (Auto) (1.2-3.4) K/uL [place] # (Auto) (0.24-0.82) K/uL Eos # (Auto) (0-0.50) K/uL Baso # (Auto) (0-0.2) K/uL Immature Gran # (Auto) (0.00-0.02) K/uL Sodium (136-145) mmol/L Potassium Chloride (98-107) mmol/L Carbon Dioxide (21-32) mmol/L Anion Gap (3-11) BUN (6-23) mg/dl Creatinine (0.6-1.2) mg/dl Est Cr Clr Drug Dosing ml/min Est GFR ( Amer) ml/min Est GFR (Non-Af Amer) ml/min BUN/Creatinine Ratio (10-20) Glucose (70-99(Fasting)) mg/dl Calcium (8.5-10.1) mg/dl Total Bilirubin (0.2-1.0) mg/dl AST ALT (7-52) U/L Alkaline Phosphatase (34-104) U/L Troponin I High Sens (0-14) pg/ml Total Protein (6.0-8.3) gm/dl Albumin (3.4-5.0) gm/dl Globulin (2.5-4.0) gm/dl Albumin/Globulin Ratio (0.9-2) Lipase (11-82) U/L Urine Color Yellow Urine Appearance Clear (Clear) Urine pH 8.0 H (4.5-7.5) Ur Specific Neal 1.010 (1.000-1.030) Urine Protein 1+ H (Negative) Urine Glucose (UA) Negative (Negative) Urine Ketones Trace H (Negative) Urine Blood Trace H (Negative) Urine Nitrite Negative (Negative) Urine Bilirubin Negative (Negative) Urine Urobilinogen Negative (Negative) Ur Leukocyte Esterase Negative (Negative) Urine WBC (Auto) 1-5 (0-5) /hpf Urine RBC (Auto) 0-4 (0-4) /hpf U Hyaline Cast (Auto) 0 (0-5) /lpf U Epithel Cells (Auto) 10-20 H (0-5) /lpf Urine Bacteria (Auto) Negative (Negative) Administered Medications Discontinued Medications Acetaminophen (Acetaminophen 500 Mg Tab) 1,000 mg PO NOW STA Stop: 08/06/22 11:50 Last Admin: 08/06/22 12:47 Dose: Not Given Documented By: AFIA Sodium Chloride (Nss) 500 mls @ 999 mls/hr IV .Q31M STA Stop: 08/06/22 12:19 Last Infusion: 08/06/22 13:13 Dose: 0 mls/hr Documented By: Admin: 08/06/22 12:42 Dose: 999 mls/hr Documented By: AFIA Acetaminophen (Ofirmev) 1,000 mg in 100 mls @ 400 mls/hr IV NOW STA Stop: 08/06/22 13:02 Last Infusion: 08/06/22 13:13 Dose: 0 mls/hr Documented By: Admin: 08/06/22 12:51 Dose: 400 mls/hr Documented By: AFIA Ondansetron HCl (Ondansetron Inj 2 Mg/Ml 2 Ml Vial) 4 mg IV NOW STA Stop: 08/06/22 11:50 Last Admin: 08/06/22 12:42 Dose: 4 mg Documented By: AFIA Imaging Data Radiologist's Impression: Abdomen/Pelvis CT 08/06/22 11:[address] WITHOUT CONTRAST CT DOSE: 718.94 mGycm HISTORY: Left lower quadrant abdominal pain. TECHNIQUE: Multiaxial CT images of the abdomen and pelvis were performed without contrast. A dose lowering technique was utilized adhering to the principles of ALARA. COMPARISON STUDY: Abdomen and pelvis CT 11/23/2020. FINDINGS: Mild dependent changes seen within the lung bases. No pneumoperitoneum. No pneumatosis. No acute fractures identified. The unenhanced liver, spleen, gallbladder, pancreas, and adrenal glands unremarkable. No renal or ureteral stones. No hydronephrosis. No retroperitoneal lymphadenopathy. Normal caliber abdominal aorta with mild calcified plaque. No pelvic lymphadenopathy or pelvic free fluid. The bladder is unremarkable. Mild pelvic floor collapse again noted. Prior hysterectomy. Suboptimal evaluation for bowel pathology due to the lack of intravenous and oral contrast. However, there is no definite bowel wall thickening or obstruction. Normal appendix. Moderate well- formed stool within the colon. A few colonic diverticula. No evidence for acute diverticulitis. IMPRESSION: 1. No renal or ureteral stones. No hydronephrosis. 2. No bowel wall thickening or obstruction. 3. Normal appendix. 4. Colonic diverticulosis. No evidence for acute diverticulitis. ACT 112: Negative or not required by law. Electronically signed by: Moo Barber M.D. 08/06/2022 1:16 PM Chest X-Ray 08/06/22 11:49 XR chest 1V portable CLINICAL HISTORY: Atypical chest pain. COMPARISON STUDY: Chest CT July 04, 2021 and chest radiograph September 26, 2020. FINDINGS: Mild elevation of the right hemidiaphragm is unchanged. No pneumothorax or pleural effusion. There is no consolidation or evidence for pulmonary edema. Cardiomegaly is unchanged. There has been no change in appearance of the chest. Linear bibasilar densities favor atelectasis. IMPRESSION: No acute cardiopulmonary findings. No change in appearance of the chest. ACT 112: Negative or not required by law. Electronically signed by: Toni Lam M.D. 08/06/2022 12:29 PM Foot X-Ray 08/06/22 11:49 XR foot LT min 3V routine CLINICAL HISTORY: fall TECHNIQUE: 3 views of the left foot were obtained. Comparison: None available at the time of this dictation. FINDINGS: No fractures are present. The joint spaces are well preserved. No soft tissue abnormality is seen. IMPRESSION: No evidence of acute bony injury. ACT 112: Negative or not required by law. Electronically signed by: Lenny Metcalf M.D. 08/06/2022 12:[address] 08/06/22 11:49 CT head/brain wo con CLINICAL HISTORY: fall Technique: Contiguous axial CT images of the head were acquired from the base of the skull to the vertex without intravenous contrast administration. Images were viewed in brain, subdural and bone windows. Automated dose lowering techniques and/or adjustment according to patient size were utilized for this exam. Comparison: Comparison is made to CT head 09/04/2020 Findings: The ventricles, basal cisterns, and cerebral sulci are normal. There is no acute intracranial hemorrhage or evidence of acute territorial infarction. Neither mass effect, shift of the midline structures, nor abnormal extra-axial fluid collections are shown. Imaged portions of the paranasal sinuses and mastoid air cells are clear. The orbits appear normal. There are no acute fractures of the calvaria or scalp swelling. Orthopedic hardware is seen over the right zygomatic arch and bilateral mandibles. Impression: No acute intracranial hemorrhage, skull fractures, or scalp swelling. ACT 112: Negative or not required by law. Electronically signed by: Lenny Metcalf M.D. 08/06/2022 12:55 PM Knee X-Ray 08/06/22 11:49 XR knee LT 1 or 2V routine CLINICAL HISTORY: fall TECHNIQUE: 2 views of the left knee were obtained. Comparison: None available at the time of this dictation. FINDINGS: There is no evidence of an acute fracture. Joint spaces are well-preserved. No joint effusion is seen. Vascular calcifications are noted. IMPRESSION: No evidence of acute osseous injury. ACT 112: Negative or not required by law. Electronically signed by: Lenny Metcalf M.D. 08/06/2022 12:31 PM Discharge Plan Visit Data Chief Complaint: Vomiting Stated Complaint: NAUSEA, VOMITING, CHEST PAIN, HTN ED Provider: González Carter Discharge Problem: Intractable cyclical vomiting, Abdominal pain, Contusion of knee, left, Contusion of foot, left Patient Disposition: Being Evaluated by Hospitalist Forms Stand Alone Forms: My [facility] Prescriptions Prescriptions: No Action furosemide 40 mg Tablet 40 mg PO DAILY PRN (Reason: edema) polyethylene glycol 3350 17 gram Powder In Packet 17 g PO DAILY PRN (Reason: Constipation) tkny-jxuc-luom-m xboc-ms-xzdap 81.6-0.06-.06-9 mg Tablet 81.6 tab PO DAILY PRN (Reason: Bladder Spasms) hydrocodone-acetaminophen 10-325 mg Tablet 1 tab PO Q6H PRN (Reason: Breakthrough Pain) lorazepam 0.5 mg Tablet 0.5 mg PO HS PRN (Reason: Anxiety) gabapentin 300 mg Capsule 300 mg PO HS fentanyl 75 mcg/hr Patch 72 Hour 1 patch TRANSDERMAL Q72H losartan 100 mg Tablet 100 mg PO DAILY atenolol 50 mg tablet 25 mg PO DAILY calcium glycerophosphate 65 mg Tablet 65 mg PO QID PRN (Reason: WHEN DRINKS COFFEE OR TEA.) amlodipine [Norvasc] 5 mg Tablet 5 mg PO QAM Qty: 30 2RF duloxetine 60 mg Capsule,Delayed Release(Dr/Ec) 60 mg PO DAILY Qty: 30 0RF phenazopyridine [Pyridium] 100 mg Tablet 100 mg PO TID PRN (Reason: BLADDER PAIN) Qty: 20 0RF pantoprazole 40 mg tablet,delayed release (DR/EC) 40 mg PO DAILYBB Rx Instructions: TAKE AT LEAST 30 MINUTES BEFORE BREAKFAST epinephrine [EpiPen] 0.3 mg/0.3 mL auto-injector 0.3 mg IM Q1H PRN (Reason: anaphylaxis) Qty: 1 1RF ondansetron HCl [Zofran] 4 mg Tablet 4 mg PO Q8H PRN (Reason: Nausea) triamterene-hydrochlorothiazid 37.5-25 mg capsule 1 cap PO DAILY naproxen [Naprosyn] 500 mg Tablet 500 mg PO BID tamsulosin 0.4 mg capsule 0.4 mg PO DAILY Qty: 10 0RF methocarbamol 500 mg tablet 500 mg PO TID PRN (Reason: muscle spasm) Qty: 10 0RF Referrals Referrals: Ezequiel Graves MD [Primary Care Provider] -
[2022-08-06 12:09] LABS: Basophils # (auto) 0.04 K/uL (0-0.2); Basophils % (auto) 0.3 %; Eosinophils # (auto) 0.08 K/uL (0-0.50); Eosinophils % (auto) 0.7 %; Hematocrit (blood only) 45.3 % (34.1-44.9); Hemoglobin 15.2 g/dl (12.0-16.0); Immature Granulocytes # (auto) 0.03 K/uL (0.00-0.02); Immature Granulocytes % (auto) 0.3 %; Lymphocytes # (auto) 1.86 K/uL (1.2-3.4); Lymphocytes % (auto) 15.8 %; Mean Corpuscular Hemoglobin 28.5 pg (25.0-34.0); Mean Corpuscular Hgb Conc 33.6 g/dL (32.0-36.0); Mean Platelet Volume 10.1 fL (9.4-12.3); Monocytes # (auto) 0.62 K/uL (0.24-0.82); Monocytes % (auto) 5.3 %; Neutrophils # (auto) 9.14 K/uL (1.4-6.5); Neutrophils % (auto) 77.6 %; Platelet Count 291 K/uL (130-400); RDW Standard Deviation 43.2 fL (36.4-46.3); Red Blood Count 5.33 M/uL (3.93-5.22); White Blood Count 11.77 K/ul (4.8-10.8)
--- NOTE | 2022-08-06 12:30 | XRay Report ---
XR chest 1V portable CLINICAL HISTORY: Atypical chest pain. COMPARISON STUDY: Chest CT July 04, 2021 and chest radiograph September 26, 2020. FINDINGS: Mild elevation of the right hemidiaphragm is unchanged. No pneumothorax or pleural effusion . There is no consolidation or evidence for pulmonary edema. Cardiomegaly is unchanged. There has bee n no change in appearance of the chest. Linear bibasilar densities favor atelectasis. IMPRESSION: No acute cardiopulmonary findings. No change in appearance of the chest. ACT 112: Negative or not required by law. Electronically signed by: Toni Lam M.D. 08/06/2022 12:29 PM
--- NOTE | 2022-08-06 12:32 | XRay Report ---
XR knee LT 1 or 2V routine CLINICAL HISTORY: fall TECHNIQUE: 2 views of the left knee were obtained. Comparison: None available at the time of this dictation. FINDINGS: There is no evidence of an acute fracture. Joint spaces are well-preserved. No joint effusion is seen . Vascular calcifications are noted. IMPRESSION: No evidence of acute osseous injury. ACT 112: Negative or not required by law. Electronically signed by: Lenny Metcalf M.D. 08/06/2022 12:31 PM
[2022-08-06 12:35] LABS: Troponin I High Sensitivity 12.1 pg/ml (0-14)
--- NOTE | 2022-08-06 12:38 | XRay Report ---
XR foot LT min 3V routine CLINICAL HISTORY: fall TECHNIQUE: 3 views of the left foot were obtained. Comparison: None available at the time of this dictation. FINDINGS: No fractures are present. The joint spaces are well preserved. No soft tissue abnormality is seen. IMPRESSION: No evidence of acute bony injury. ACT 112: Negative or not required by law. Electronically signed by: Lenny Metcalf M.D. 08/06/2022 12:35 PM
[2022-08-06] MEDS: ACETAMINOPHEN 500 MG TAB PO STA ×2 (12:44→12:47)
[2022-08-06] MEDS ORDERED: ACETAMINOPHEN 1,000 MG/100 ML VIAL IV STA (12:48)
[2022-08-06 12:54] LABS: Alanine Aminotransferase 26 U/L (7-52); Albumin Level 4.3 gm/dl (3.4-5.0); Alkaline Phosphatase 89 U/L (34-104); Anion Gap 11 (3-11); BUN Creatinine Ratio 18.3 (10-20); Bilirubin,Total 0.7 mg/dl (0.2-1.0); Blood Urea Nitrogen 13 mg/dl (6-23); Calcium 9.4 mg/dl (8.5-10.1); Carbon Dioxide 25 mmol/L (21-32); Chloride 100 mmol/L (98-107); Creatinine Clr Calc Pharmacy 59.4 ml/min; Est GFR (African American) 91.9 ml/min; Est GFR (Non-African American) 79.3 ml/min; Globulin 4.1 gm/dl (2.5-4.0); Glucose 130 mg/dl (70-99(Fasting)); Lipase 13 U/L (11-82); Sodium 136 mmol/L (136-145); Total Protein 8.4 gm/dl (6.0-8.3)
--- NOTE | 2022-08-06 12:56 | CT Scan Report ---
CT head/brain wo con CLINICAL HISTORY: fall Technique: Contiguous axial CT images of the head were acquired from the base of the skull to the karen yaya without intravenous contrast administration. Images were viewed in brain, subdural and [facility]. Automated dose lowering techniques and/or adjustment according to patient size were utilized for this exam. Comparison: Comparison is made to CT head 09/04/2020 Findings: The ventricles, basal cisterns, and cerebral sulci are normal. There is no acute intracranial hemorrh age or evidence of acute territorial infarction. Neither mass effect, shift of the midline structures , nor abnormal extra-axial fluid collections are shown. Imaged portions of the paranasal sinuses and mastoid air cells are clear. The orbits appear normal. There are no acute fractures of the calvaria or scalp swelling. Orthopedic hardware is seen over the right zygomatic arch and bilateral mandibles. Impression: No acute intracranial hemorrhage, skull fractures, or scalp swelling. ACT 112: Negative or not required by law. Electronically signed by: Lenny Metcalf M.D. 08/06/2022 12:55 PM
--- NOTE | 2022-08-06 13:18 | CT Scan Report ---
ABDOMEN AND PELVIS CT WITHOUT CONTRAST CT DOSE: 718.94 mGycm HISTORY: Left lower quadrant abdominal pain. TECHNIQUE: Multiaxial CT images of the abdomen and pelvis were performed without contrast. A dose lo wering technique was utilized adhering to the principles of ALARA. COMPARISON STUDY: Abdomen and pelvis CT 11/23/2020. FINDINGS: Mild dependent changes seen within the lung bases. No pneumoperitoneum. No pneumatosis. No acute fractures identified. The unenhanced liver, spleen, gallbladder, pancreas, and adrenal glands u nremarkable. No renal or ureteral stones. No hydronephrosis. No retroperitoneal lymphadenopathy. Norm al caliber abdominal aorta with mild calcified plaque. No pelvic lymphadenopathy or pelvic free fluid . The bladder is unremarkable. Mild pelvic floor collapse again noted. Prior hysterectomy. Suboptimal evaluation for bowel pathology due to the lack of intravenous and oral contrast. However, there is n o definite bowel wall thickening or obstruction. Normal appendix. Moderate well-formed stool within t he colon. A few colonic diverticula. No evidence for acute diverticulitis. IMPRESSION: 1. No renal or ureteral stones. No hydronephrosis. 2. No bowel wall thickening or obstruction. 3. Normal appendix. 4. Colonic diverticulosis. No evidence for acute diverticulitis. ACT 112: Negative or not required by law. Electronically signed by: Moo Barber M.D. 08/06/2022 1:16 PM
--- NOTE | 2022-08-06 13:34 | Electrocardiogram Report ---
Test Reason : Blood Pressure : / mmHG Vent. Rate : 081 BPM Atrial Rate : 081 BPM P-R Int : 144 ms QRS Dur : 082 ms QT Int : 392 ms P-R-T Axes : 020 -11 014 degrees QTc Int : 455 ms Poor data quality, interpretation may be adversely affected Normal sinus rhythm Normal ECG When compared with ECG of 26-SEP-2020 11:17, No significant change was found Confirmed by Zeyad Fang ([id number]) on 08/06/2022 1:33:40 PM Referred By: Confirmed By:Zeyad Fang
[2022-08-06 13:46] LABS: Potassium 3.9 mmol/L (3.5-5.1)
[2022-08-06 14:29] LABS: Appearance Urine Clear (Clear); Bacteria Urine Automated Negative (Negative); Bilirubin Urine Negative (Negative); Blood Urine Trace (Negative); Cast Urine Automated 0 /lpf (0-5); Color Urine Yellow; Glucose Urine UA Negative (Negative); Ketones Urine Trace (Negative); Leukocyte Esterase Urine Negative (Negative); Nitrite Urine Negative (Negative); RBC Urine Automated 0-4 /hpf (0-4); Urobilinogen Urine Negative (Negative)
[2022-08-06 14:35] LABS: Protein Urine 1+ (Negative)
--- NOTE | 2022-08-06 16:59 | History & Physical Report ---
Date of Service August 06, 2022 Assessment & Plan (1) Nausea: (2) Constipation due to opioid therapy: (3) Abdominal pain: (4) Depression: (5) HTN (hypertension): (6) HLD (hyperlipidemia): Plan This is an 82-year-old female who has significant past medical history of diet-controlled T2DM, HTN, HLD, CKD stage III baseline creatinine 1.1-1.2, chronic interstitial cystitis, chronic neck pain, history of PE in the 30s during , depression with anxiety who presents ED secondary to intractable nausea x1 week. Intractable Nausea Chronic Abdominal pain/Neck Pain Depression admit to med tele Patient with chronic abdominal and neck pain on current regimen of fentanyl 75mcg/3d, hydrocodone acetaminophen, as needed baclofen, as needed gabapentin and Cymbalta Today patient cut her fentanyl patch in half and placed on her left forearm Discussed with nursing in ED and pharmacist to remove patch immediately and will replace it with a 50 mcg patch Patient wishes to taper off of fentanyl as feels it is not helping She does have chronic pain and nausea which now seems to be exacerbated She appears extremely depressed and feels may be contributing to her symptoms Overall work-up so far is unremarkable, CT abdomen pelvis unrevealing, patient recent underwent extensive GI work-up with upper GI and colonoscopy which was unremarkable pt is agreeable to address depression, will consult psych as this may be also contributing to her worsened sx pt should follow up with Pain management as outpatient to address pain regimen, but will reduce her fentanyl at her request regarding chronic nausea will place on clear liquid diet, antiemetics, IVF, s upportive care will resume daily miralax as constipation may be playing role as well and pt has not been taking renal fxn at baseline, but elevated h/h may indicate slight dehydration consider GI consult if n/v not improving HTN bp elevated in ED monitor when gets to floor continue home meds of amlodipine, losartan, atenolol DVt ppx: SQ Lovenox DNR/DNI Pt was seen and examined in collaboration with Dr. Garibay, please see addendum A total of [75] minutes were spent with greater than 50% of that time face to face with the patient, personally reviewing all current laboratories, imaging studies, past medication reconciliation, outpatient chart review, and discussion with specialists to collaborate care for the patient with attending. Please see attending documentation for corrections and/or additions. History of Present Illness Chief Complaint: Intractable nausea Primary Care Provider: Ezequiel Graves MD This is an 82-year-old female who has significant past medical history of diet- controlled T2DM, HTN, HLD, CKD stage III baseline creatinine 1.1-1.2, chronic interstitial cystitis, chronic neck pain, history of PE in the 30s during , depression with anxiety who presents ED secondary to intractable nausea x1 week. Patient admits to chronic history of chronic neck pain, chronic abdominal pain and nausea. She has noticed increased nausea for the past week, inability to tolerate oral liquid and solid and increasing chronic abdominal pain. She states she, "never feels good." She is tired of dealing with the pain. She admits to being depressed and feels it is always worse this time year. She denies any recent inciting factors or events just that, "I never feel good." She denies any suicidal or homicidal ideations. She denies any fever, chills, sweats, lightheadedness, chest pain, shortness of breath, cough, vomiting, hematemesis, melena, dysuria or hematochezia. Her last bowel movement was 4 days ago. She is urinating without difficulty. She does complain of dry heaves with any intake. She was able to keep down blood pressure and pain medication this morning. She does have a fentanyl patch in place. She is on 75 mcg every 3 days but today cut it in half because she wants to wean off of it. She does not feel it helps. She does follow with GI and recently underwent work-up of colonoscopy and upper GI which was unremarkable. She has had multiple CT scans of abdomen pelvis. Per patient GI feels her symptoms are likely related to adhesions. Overall appetite has been poor. Allergies Allergy/AdvReac Type Severity Reaction Status Date / Time AVNI Inhibitors Allergy Severe edema of Verified 08/06/22 16:11 face lips and tongue bee venom protein (honey bee) Allergy Severe large Verified 08/06/22 16:11 local reaction Cephalosporins Allergy Intermediate KEFLEX = Verified 08/06/22 16:11 RASH solifenacin AdvReac Mild Jittery Verified 08/06/22 16:11 Home Medications Medication Instructions Recorded Confirmed Type atenolol 50 mg tablet 25 mg PO DAILY 09/04/20 08/06/22 History calcium glycerophosphate 65 mg 65 mg PO QID PRN WHEN DRINKS 09/04/20 08/06/22 History tablet COFFEE OR TEA. fentanyl 75 mcg/hr transdermal 1 patch transdermal Q72H 09/04/20 08/06/22 History patch gabapentin 300 mg capsule 300 mg PO HS 09/04/20 08/06/22 History hydrocodone 10 mg-acetaminophen 1 tab PO Q6H PRN Breakthrough Pain 09/04/20 08/06/22 History 325 mg tablet losartan 100 mg tablet 100 mg PO QAM 09/04/20 08/06/22 History polyethylene glycol 3350 17 gram 17 g PO DAILY 09/04/20 08/06/22 History oral powder packet epinephrine 0.3 mg/0.3 mL 0.3 mg (0.3 mL) IM Q1H PRN 09/26/20 08/06/22 Rx injection, auto-injector (EpiPen) anaphylaxis #1 ea pantoprazole 40 mg tablet,delayed 40 mg PO DAILYBB 09/26/20 08/06/22 History release naproxen 500 mg tablet (Naprosyn) 500 mg PO BID PRN Pain 11/23/20 08/06/22 History amlodipine 5 mg tablet (Norvasc) 7.5 mg PO QAM 08/06/22 08/06/22 History atorvastatin 40 mg tablet 40 mg PO DAILY 08/06/22 08/06/22 History baclofen 10 mg tablet 10 mg PO HS PRN Pain, Moderate 08/06/22 08/06/22 History duloxetine 60 mg capsule,delayed 60 mg PO QAM 08/06/22 08/06/22 History release ferrous sulfate 325 mg (65 mg 325 mg PO DAILY 08/06/22 08/06/22 History iron) tablet furosemide 20 mg tablet 40 mg PO QAM PRN Edema 08/06/22 08/06/22 History lorazepam 0.5 mg tablet 0.5 mg PO BID PRN anxiety/insomnia 08/06/22 08/06/22 History or twitching ondansetron 4 mg disintegrating 4 mg PO Q8H PRN Nausea 08/06/22 08/06/22 History tablet potassium chloride 10 mEq 10 meq PO QAM 08/06/22 08/06/22 History capsule,extended release Past Med/Surg History Medical History Anemia Chronic interstitial cystitis Chronic neck pain CKD (chronic kidney disease) stage 3, GFR 30-59 ml/min Depression with anxiety Diabetic peripheral neuropathy associated with type 2 diabetes mellitus Foot deformity History of Lyme disease History of pulmonary embolism in 30s during , hypercoag w/u negative HLD (hyperlipidemia) HTN (hypertension) Loss of protective sensation of skin of foot Posterior tibial tendon dysfunction T2DM (type 2 diabetes mellitus) Surgical History History of bilateral salpingo-oophorectomy (BSO) History of cystoscopy History of foot surgery R 2/2 to claw foot History of hysterectomy History of mandibular surgery hx of TMJ surgeries x 9 with eventual total joint replacement Family History Mother Myocardial infarction Coronary heart disease Hx of CABG Brother Diabetes Father Stroke Social History Smoking Status: Former smoker Tobacco Type: Cigarettes packs per day: 0.5; Cigarettes Per Day: 10; Second Hand Exposure: No; Do You Dip or Chew Tobacco: No; Hx Alcohol Use: No Hx Substance Use: No Preferred Language: Polish Communication Ability: Effective Millinery Teacher Required: No Beliefs That Will Affect Care: None Current Living Situation: Alone current occupational status: retired current occupation: retired RN Other Information That Helps Us Care for You: No Feels Safe at Home: Yes Safety Concerns: Feels Safe At This Time Assistive Devices: Cane and Glasses Review of Systems Review of Systems: All systems reviewed & are unremarkable except as noted in HPI & below Physical Exam Physical Exam: Constitutional: WD/WN, Elderly, poor eye contact, flat affect, vitals as above, NAD, sitting up in bed, answers questions appropriately Head: Normocephalic, Atraumatic Eyes: PERRL, conjunctivae normal, anicteric sclerae ENMT: external ear and nose normal, oropharynx normal dry membranes Neck: trachea midline, no thyromegaly normal visual inspection Respiratory: normal respiratory effort, lungs clear to auscultation, no wheeze, rales, rhonchi. Normal insp/exp effort, no accessory muscle use Cardiovascular: RRR, 1/6 MARIA D, no edema Vessels: no JVD or carotid bruit Chest: normal inspection of chest Abdomen: normal bowel sounds, soft, pain to LLQ to palpation but no rebound, guarding or tenderness, no hepatosplenomegaly Musculoskeletal: no cyanosis or clubbing, extremities motor strength 5/5 Skin: no rashes, warm and dry normal turgor Neurologic: PERRL, EOMI, accommodation nl, no face palsy, no dysarthria CN's II-XI intact bilaterally and moves all extremities Psychiatric: A+Ox3, euthymic affect Lymphatic: no cervical or axillary lymphadenopathy : deferred Results & Data Results & Data ([facility]) Vital Signs (Past 12 Hours) Vital Signs Temp Pulse Pulse Resp BP BP Pulse Ox 08/06/22 15:02 84 19 164/70 H 94 08/06/22 13:42 95 08/06/22 13:14 71 19 170/63 H 93 08/06/22 11:45 36.7 C 80 18 183/71 H 95 O2 Del Method 08/06/22 15:02 Room Air 08/06/22 13:42 Room Air 08/06/22 13:14 Room Air 08/06/22 11:45 Room Air Laboratory Results Short CBC 08/06/22 Range/Units 11:35 WBC 11.77 H (4.8-10.8) K/ul Hgb 15.2 (12.0-16.0) g/dl Hct 45.3 H (34.1-44.9) % Plt Count 291 (130-400) K/uL BMP 08/06/22 08/06/22 11:35 12:54 Sodium 136 Potassium TNP 3.9 Chloride 100 Carbon Dioxide 25 BUN 13 Creatinine 0.71 Glucose 130 H Calcium 9.4 Liver Function 08/06/22 08/06/22 Range/Units 11:35 12:54 Total Bilirubin 0.7 (0.2-1.0) mg/dl AST TNP 27 ALT 26 (7-52) U/L Alkaline Phosphatase 89 (34-104) U/L Albumin 4.3 (3.4-5.0) gm/dl Urine 08/06/22 Range/Units 13:45 Urine Color Yellow Urine Appearance Clear (Clear) Urine pH 8.0 H (4.5-7.5) Ur Specific [place] 1.010 (1.000-1.030) Urine Protein 1+ H (Negative) Urine Glucose (UA) Negative (Negative) Diagnostic Findings Abdomen/Pelvis CT 08/06/22 11:[address] WITHOUT CONTRAST CT DOSE: 718.94 mGycm HISTORY: Left lower quadrant abdominal pain. TECHNIQUE: Multiaxial CT images of the abdomen and pelvis were performed without contrast. A dose lowering technique was utilized adhering to the principles of ALARA. COMPARISON STUDY: Abdomen and pelvis CT 11/23/2020. FINDINGS: Mild dependent changes seen within the lung bases. No pneumope ritoneum. No pneumatosis. No acute fractures identified. The unenhanced liver, spleen, gallbladder, pancreas, and adrenal glands unremarkable. No renal or ureteral stones. No hydronephrosis. No retroperitoneal lymphadenopathy. Normal caliber abdominal aorta with mild calcified plaque. No pelvic lymphadenopathy or pelvic free fluid. The bladder is unremarkable. Mild pelvic floor collapse again noted. Prior hysterectomy. Suboptimal evaluation for bowel pathology due to the lack of intravenous and oral contrast. However, there is no definite bowel wall thickening or obstruction. Normal appendix. Moderate well-formed stool within the colon. A few colonic diverticula. No evidence for acute diverticulitis. IMPRESSION: 1. No renal or ureteral stones. No hydronephrosis. 2. No bowel wall thickening or obstruction. 3. Normal appendix. 4. Colonic diverticulosis. No evidence for acute diverticulitis. ACT 112: Negative or not required by law. Electronically signed by: Moo Barber M.D. 08/06/2022 1:16 PM Chest X-Ray 08/06/22 11:49 XR chest 1V portable CLINICAL HISTORY: Atypical chest pain. COMPARISON STUDY: Chest CT July 04, 2021 and chest radiograph September 26, 2020. FINDINGS: Mild elevation of the right hemidiaphragm is unchanged. No pneumothorax or pleural effusion. There is no consolidation or evidence for pulmonary edema. Cardiomegaly is unchanged. There has been no change in appearance of the chest. Linear bibasilar densities favor atelectasis. IMPRESSION: No acute cardiopulmonary findings. No change in appearance of the chest. ACT 112: Negative or not required by law. Electronically signed by: Toni Lam M.D. 08/06/2022 12:29 PM Foot X-Ray 08/06/22 11:49 XR foot LT min 3V routine CLINICAL HISTORY: fall TECHNIQUE: 3 views of the left foot were obtained. Comparison: None available at the time of this dictation. FINDINGS: No fractures are present. The joint spaces are well preserved. No soft tissue abnormality is seen. IMPRESSION: No evidence of acute bony injury. ACT 112: Negative or not required by law. Electronically signed by: Lenny Metcalf M.D. 08/06/2022 12:[address] 08/06/22 11:49 CT head/brain wo con CLINICAL HISTORY: fall Technique: Contiguous axial CT images of the head were acquired from the base of the skull to the vertex without intravenous contrast administration. Images were viewed in brain, subdural and bone windows. Automated dose lowering techniques and/or adjustment according to patient size were utilized for this exam. Comparison: Comparison is made to CT head 09/04/2020 Findings: The ventricles, basal cisterns, and cerebral sulci are normal. There is no acute intracranial hemorrhage or evidence of acute territorial infarction. Neither mass effect, shift of the midline structures, nor abnormal extra-axial fluid collections are shown. Imaged portions of the paranasal sinuses and mastoid air cells are clear. The orbits appear normal. There are no acute fractures of the calvaria or scalp swelling. Orthopedic hardware is seen over the right zygomatic arch and bilateral mandibles. Impression: No acute intracranial hemorrhage, skull fractures, or scalp swelling. ACT 112: Negative or not required by law. Electronically signed by: Lenny Metcalf M.D. 08/06/2022 12:55 PM Knee X-Ray 08/06/22 11:49 XR knee LT 1 or 2V routine CLINICAL HISTORY: fall TECHNIQUE: 2 views of the left knee were obtained. Comparison: None available at the time of this dictation. FINDINGS: There is no evidence of an acute fracture. Joint spaces are well-preserved. No joint effusion is seen. Vascular calcifications are noted. IMPRESSION: No evidence of acute osseous injury. ACT 112: Negative or not required by law. Electronically signed by: Lenny Metcalf M.D. 08/06/2022 12:31 PM Medications Administered Medication List Discontinued Medications Acetaminophen (Acetaminophen 500 Mg Tab) 1,000 mg PO NOW STA Stop: 08/06/22 11:50 Last Admin: 08/06/22 12:47 Dose: Not Given Documented By: AFIA Sodium Chloride (Nss) 500 mls @ 999 mls/hr IV .Q31M STA Stop: 08/06/22 12:19 Last Infusion: 08/06/22 13:13 Dose: 0 mls/hr Documented By: Admin: 08/06/22 12:42 Dose: 999 mls/hr Documented By: AFIA Acetaminophen (Ofirmev) 1,000 mg in 100 mls @ 400 mls/hr IV NOW STA Stop: 08/06/22 13:02 Last Infusion: 08/06/22 13:13 Dose: 0 mls/hr Documented By: Admin: 08/06/22 12:51 Dose: 400 mls/hr Documented By: AFIA Ondansetron HCl (Ondansetron Inj 2 Mg/Ml 2 Ml Vial) 4 mg IV NOW STA Stop: 08/06/22 11:50 Last Admin: 08/06/22 12:42 Dose: 4 mg Documented By: AFIA Ondansetron HCl (Ondansetron Inj 2 Mg/Ml 2 Ml Vial) 4 mg IV NOW STA Stop: 08/06/22 16:16 Last Admin: 08/06/22 16:25 Dose: 4 mg Documented By: AFIA ECG Rate (beats per minute): 81 Rhythm: normal sinus COVID-19 Results Results COVID-19 Adm Lab Results: RBC 5.33 M/uL (3.93-5.22) H 08/06/22 WBC 11.77 K/ul (4.8-10.8) H 08/06/22 Hgb 15.2 g/dl (12.0-16.0) 08/06/22 Hct 45.3 % (34.1-44.9) H 08/06/22 Plt Count 291 K/uL (130-400) 08/06/22 Neutrophils (%) (Auto) 77.6 % 08/06/22 Lymphocytes (%) (Auto) 15.8 % 08/06/22 Monocytes # (Auto) 0.62 K/uL (0.24-0.82) 08/06/22 Eosinophils # (Auto) 0.08 K/uL (0-0.50) 08/06/22 Immature Granulocyte % (Auto) 0.3 % 08/06/22 Neutrophils # (Auto) 9.14 K/uL (1.4-6.5) H 08/06/22 Lymphocytes # (Auto) 1.86 K/uL (1.2-3.4) 08/06/22 Monocytes # (Auto) 0.62 K/uL (0.24-0.82) 08/06/22 Eosinophils # (Auto) 0.08 K/uL (0-0.50) 08/06/22 Basophils # (Auto) 0.04 K/uL (0-0.2) 08/06/22 Immature Granulocyte # (Auto) 0.03 K/uL (0.00-0.02) H 08/06 Na 136 mmol/L (136-145) 08/06/22 K 3.9 mmol/L (3.5-5.1) 08/06/22 Cl 100 mmol/L (98-107) 08/06/22 CO2 25 mmol/L (21-32) 08/06/22 Anion Gap 11 (3-11) 08/06/22 BUN 13 mg/dl (6-23) 08/06/22 Creatinine 0.71 mg/dl (0.6-1.2) 08/06/22 BUN/Creatinine Ratio 18.3 (10-20) 08/06/22 Glucose Level 130 mg/dl (70-99(Fasting)) H 08/06/22 Ca 9.4 mg/dl (8.5-10.1) 08/06/22 Total Bilirubin 0.7 mg/dl (0.2-1.0) 08/06/22 AST/SGOT 27 U/L (13-39) 08/06/22 ALT/SGPT 26 U/L (7-52) 08/06/22 Alkaline Phosphatase 89 U/L (34-104) 08/06/22 Total Protein 8.4 gm/dl (6.0-8.3) H 08/06/22 Albumin 4.3 gm/dl (3.4-5.0) 08/06/22 Globulin 4.1 gm/dl (2.5-4.0) H 08/06/22 Albumin/Globulin Ratio 1.0 (0.9-2) 08/06/22 COVID-19 PCR NEGATIVE (Negative) 08/06/22 Influenza Virus Type A (PCR) Negative (Neg) 08/06/22 Influenza Virus Type B (PCR) Negative (Neg) 08/06/22 Chest X-Ray 08/06/22 Code Status & VTE Plan Code Status DNR/DNI VTE Prophylaxis Plan VTE Prophylaxis will be ordered: Yes Supervising Physician Co-Signing Physician Notes I have seen and examined the patient and have discussed the case with the provider above. I agree with the assessment and plan as stated with the following exceptions. Patient is an 82-year-old female with diet-controlled diabetes and chronic neck pain and face pain requiring narcotics. She presents today with worsening weakness, falls at home and urinary urgency and increased frequency since Wednesday. She denies any pelvic discomfort other than her chronic left lower quadrant pain from internal scar tissue and she denies any fevers or chills. She has significant [place] patient not having a bowel movement in the last 4 days and reports not being able to eat for the past 2 weeks. She has felt too weak to drive and appears uncomfortable on physical exam. She has several episodes of dry heaving after having a couple sips of MiraLAX while I was in the room. Abdomen is soft nontender nondistended. She is in no acute distress and appears to be breathing comfortably. She is able to sit up independently. Work-up today includes a CT abdomen pelvis without contrast revealing no bowel wall thickening or obstruction normal appendix no evidence of diverticulitis or other clear cause for her discomfort. She does have well formed stool within the colon. Labs reveal a mildly elevated white count of 11.8 and otherwise normal CBC. Chemistry is normal. Glucose is elevated given that she is reportedly fasting. It is currently 130. Liver function tests are normal. Troponin is not elevated. EKG reveals sinus rhythm. Ms. Alex is an 82-year-old female with diet controlled diabetes on chronic narcotic therapy presenting with ongoing nausea and constipation for the last 1- 2 weeks. Her appetite has been poor and she cannot handle much by mouth without dry heaving. She recently underwent an outpatient EGD and CSP that were normal in Jul 16. She is not taking her iron. She is wanting to cut back on fentanyl therapy. It is likely that her GI issues are functional and related to either narcotic induced constipation vs ileus or uncontrolled DMII. Her UA is negative for infection and her urinary symptoms she is reporting may be related to her constipation. Would reassess again once this stool burden is evacuated. Last A1C was October 14 and was 7.2. Will repeat A1C. She is already weaning herself off the fentanyl. Cont bowel regimen consistently. I offered her a suppository which she will consider. Agree with clears for now. Cont supportive care efforts. KUB in am. DO [place] (1) Abdominal pain Abdominal location: lower abdomen, unspecified Qualified Code(s): R10.30 - Lower abdominal pain, unspecified
[2022-08-06] MEDS ORDERED: fentaNYL 50 MCG/HR TDSY TD SCH (17:45)
[2022-08-06 18:09] LABS: Influenza A virus by PCR Negative (Neg); Influenza B virus by PCR Negative (Neg); RSV by PCR Negative (Neg); SARS CoV2 RNA(COVID-19) Ceph NEGATIVE (Negative)
[2022-08-06] MEDS ORDERED: BACLOFEN 10 MG TAB PO PRN (20:19)
[2022-08-06] MEDS ORDERED: POLYETHYLENE (MIRALAX) 17 GM PACK PO PRN (20:19)
[2022-08-06] MEDS ORDERED: ALUMINUM/MAGNESIUM SUSP 30 ML UDC PO PRN (20:19)
[2022-08-06] MEDS: LACTATED RINGER'S 1,000 ML IV SCH (20:51)
[2022-08-06] MEDS: ENOXAPARIN INJ 40 MG/0.4 ML SYR SQ SCH (21:16)
[2022-08-06] MEDS: POLYETHYLENE (MIRALAX) 17 GM PACK PO SCH (21:17)
[2022-08-06] MEDS: GABAPENTIN 300 MG CAP PO SCH (21:18)
[2022-08-06] MEDS ORDERED: LABETALOL HCL IV 5 MG/ML 20ML IV STA (21:36)
[2022-08-07] MEDS ORDERED: CHECK fentaNYL PATCH PLACEMENT SCH ×2
[2022-08-07] MEDS: CHECK fentaNYL PATCH PLACEMENT SCH ×4 (01:13→22:12)
[2022-08-07 05:05] LABS: Basophils # (auto) 0.03 K/uL (0-0.2); Basophils % (auto) 0.2 %; Eosinophils # (auto) 0.06 K/uL (0-0.50); Eosinophils % (auto) 0.5 %; Hematocrit (blood only) 46.3 % (34.1-44.9); Hemoglobin 15.1 g/dl (12.0-16.0); Immature Granulocytes # (auto) 0.07 K/uL (0.00-0.02); Immature Granulocytes % (auto) 0.5 %; Lymphocytes # (auto) 2.52 K/uL (1.2-3.4); Lymphocytes % (auto) 18.9 %; Mean Corpuscular Hemoglobin 28.2 pg (25.0-34.0); Mean Corpuscular Hgb Conc 32.6 g/dL (32.0-36.0); Mean Corpuscular Volume 86.5 fL (80.0-100.0); Mean Platelet Volume 9.6 fL (9.4-12.3); Monocytes # (auto) 0.78 K/uL (0.24-0.82); Monocytes % (auto) 5.9 %; Neutrophils # (auto) 9.84 K/uL (1.4-6.5); Platelet Count 284 K/uL (130-400); RDW Coefficient of Variation 13.9 % (11.5-14.5); RDW Standard Deviation 44.4 fL (36.4-46.3); Red Blood Count 5.35 M/uL (3.93-5.22)
[2022-08-07 05:38] LABS: Albumin Globulin Ratio 1.1 (0.9-2); Albumin Level 4.2 gm/dl (3.4-5.0); BUN Creatinine Ratio 20.5 (10-20); Bilirubin,Total 0.7 mg/dl (0.2-1.0); Calcium 9.1 mg/dl (8.5-10.1); Creatinine Clr Calc Pharmacy 58.2 ml/min; Est GFR (African American) 88.9 ml/min; Est GFR (Non-African American) 76.7 ml/min; Globulin 3.9 gm/dl (2.5-4.0); Magnesium 2.5 mg/dl (1.7-2.4); Potassium 3.7 mmol/L (3.5-5.1); Total Protein 8.1 gm/dl (6.0-8.3)
[2022-08-07] MEDS: ONDANSETRON INJ 2 MG/ML 2 ML VIAL IV PRN ×3 (06:07→21:35)
[2022-08-07 08:28] LABS: Estimated Average Glucose 134 mg/dl; Hemoglobin A1C 6.3 % (4.5-5.6)
[2022-08-07] MEDS: LOSARTAN POTASSIUM 50 MG TAB PO SCH (08:53)
[2022-08-07] MEDS: amLODIPine BESYLATE 5 MG TAB PO SCH (08:54)
[2022-08-07] MEDS: FERROUS SULFATE 325 MG TAB PO SCH ×2 (08:54→09:00)
[2022-08-07] MEDS: ATORVASTATIN 40 MG TAB PO SCH ×2 (08:54→09:00)
[2022-08-07] MEDS: PANTOprazole 40 MG TAB PO SCH (08:54)
[2022-08-07] MEDS: POTASSIUM CHLORIDE 10 MEQ TABCR PO SCH ×2 (08:54→09:00)
[2022-08-07] MEDS: DULoxetine HCL 60 MG CAP PO SCH ×2 (08:55→08:59)
[2022-08-07] MEDS: POLYETHYLENE (MIRALAX) 17 GM PACK PO SCH (08:55)
[2022-08-07] MEDS: ATENOLOL 25 MG TABLET PO SCH (08:55)
[2022-08-07] MEDS: LACTATED RINGER'S 1,000 ML IV SCH (09:26)
[2022-08-07] MEDS: LORazepam 0.5 MG TAB PO PRN ×2 (10:19→21:39)
[2022-08-07] MEDS: HYDROcodone/ACETAMINOPHEN 10/325 TAB PO PRN (11:53)
--- NOTE | 2022-08-07 12:19 | Psychiatric Consultation ---
Date of Consultation August 07, 2022 Impression / Recommendations Impression Diagnostically consistent with worsening depression in context of persistent depressive disorder and worsening nausea, sleep and poor appetite. Discussed medication treatment options in detail. Discussed risks, benefits and alternatives. Patient would like to start and consented to mirtazapine for depression augmentation and off-label use to help with nausea. Reviewed side effects including but not limited to: sedation, increased appetite, weight gain. Acute risk of self-harm is low given denial of current SI, has history of intermittent passive SI but never with active SI nor past attempts, has strong deterrents and reasons for living including her family and friends and remains future-oriented. (1) Persistent depressive disorder: (2) Nausea: Plan -Continue Cymbalta 60mg qd -Add mirtazapine 7.5mg hs, if well tolerated can be titrated to 15mg HS after 1- 2 days Risk Factors Assessment Do You Have Access To A Gun?: No Psych History Identifying Data 82 yo woman with history of depression, chronic pain, T2DM, HTN and admitted medically for worsening nausea. Psychiatry consulted for recommendations for depression. Chief Complaint "I'm ok". History of Present Illness Nadiya is joined at bedside by her daughter who she felt comfortable having present for the interview. She confirms a long history of lifelong depression which has worsened due to nausea, poor sleep and poor appetite. She takes Cymbalta for mood and pain benefits. Has intermittent thoughts of passive SI but never active SI, denies any current SI today, and no history of prior attempts. No access to guns. She's had outpatient psychiatry in the past but doesn't feel this is necessary nor is she interested in that at this time. Feels well s upported by her daughter who lives locally and friends. Interested in medication recommendations, discussed mirtazapine which she is interested in trying. No other questions or concerns. Past Psychiatric History Do You Have Access To A Gun?: No History of Previous Suicide Attempt: No Allergies Allergy/AdvReac Type Severity Reaction Status Date / Time AVNI Inhibitors Allergy Severe edema of Verified 08/06/22 16:11 face lips and tongue bee venom protein (honey bee) Allergy Severe large Verified 08/06/22 16:11 local reaction Cephalosporins Allergy Intermediate KEFLEX = Verified 08/06/22 16:11 RASH solifenacin AdvReac Mild Jittery Verified 08/06/22 16:11 Home Medications Medication Instructions Recorded Confirmed Type atenolol 50 mg tablet 25 mg PO DAILY 09/04/20 08/06/22 History calcium glycerophosphate 65 mg 65 mg PO QID PRN WHEN DRINKS 09/04/20 08/06/22 History tablet COFFEE OR TEA. fentanyl 75 mcg/hr transdermal 1 patch transdermal Q72H 09/04/20 08/06/22 History patch gabapentin 300 mg capsule 300 mg PO HS 09/04/20 08/06/22 History hydrocodone 10 mg-acetaminophen 1 tab PO Q6H PRN Breakthrough Pain 09/04/20 08/06/22 History 325 mg tablet losartan 100 mg tablet 100 mg PO QAM 09/04/20 08/06/22 History polyethylene glycol 3350 17 gram 17 g PO DAILY 09/04/20 08/06/22 History oral powder packet epinephrine 0.3 mg/0.3 mL 0.3 mg (0.3 mL) IM Q1H PRN 09/26/20 08/06/22 Rx injection, auto-injector (EpiPen) anaphylaxis #1 ea pantoprazole 40 mg tablet,delayed 40 mg PO DAILYBB 09/26/20 08/06/22 History release naproxen 500 mg tablet (Naprosyn) 500 mg PO BID PRN Pain 11/23/20 08/06/22 History amlodipine 5 mg tablet (Norvasc) 7.5 mg PO QAM 08/06/22 08/06/22 History atorvastatin 40 mg tablet 40 mg PO DAILY 08/06/22 08/06/22 History baclofen 10 mg tablet 10 mg PO HS PRN Pain, Moderate 08/06/22 08/06/22 History duloxetine 60 mg capsule,delayed 60 mg PO QAM 08/06/22 08/06/22 History release ferrous sulfate 325 mg (65 mg 325 mg PO DAILY 08/06/22 08/06/22 History iron) tablet furosemide 20 mg tablet 40 mg PO QAM PRN Edema 08/06/22 08/06/22 History lorazepam 0.5 mg tablet 0.5 mg PO BID PRN anxiety/insomnia 08/06/22 08/06/22 History or twitching ondansetron 4 mg disintegrating 4 mg PO Q8H PRN Nausea 08/06/22 08/06/22 History tablet potassium chloride 10 mEq 10 meq PO QAM 08/06/22 08/06/22 History capsule,extended release Family History depression runs in family Substance Abuse History denies Personal History Living Arrangements: Home Employment Status: Retired Marital Status: Beliefs That Will Affect Care: None Patient History Medical History Anemia Chronic interstitial cystitis Chronic neck pain CKD (chronic kidney disease) stage 3, GFR 30-59 ml/min Depression with anxiety Diabetic peripheral neuropathy associated with type 2 diabetes mellitus Foot deformity History of Lyme disease History of pulmonary embolism in 30s during , hypercoag w/u negative HLD (hyperlipidemia) HTN (hypertension) Loss of protective sensation of skin of foot Posterior tibial tendon dysfunction T2DM (type 2 diabetes mellitus) Surgical History History of bilateral salpingo-oophorectomy (BSO) History of cystoscopy History of foot surgery R 2/2 to claw foot History of hysterectomy History of mandibular surgery hx of TMJ surgeries x 9 with eventual total joint replacement Family History Mother Myocardial infarction Coronary heart disease Hx of CABG Brother Diabetes Father Stroke Social History Smoking Status: Former smoker Tobacco Type: Cigarettes packs per day: 0.5; Cigarettes Per Day: 10; Second Hand Exposure: No; Do You Dip or Chew Tobacco: No; Hx Alcohol Use: No Hx Substance Use: No Preferred Language: Ukrainian Communication Ability: Effective Rabbit Breeder Required: No Beliefs That Will Affect Care: None Current Living Situation: Alone current occupational status: retired current occupation: retired RN Other Information That Helps Us Care for You: No Feels Safe at Home: Yes Safety Concerns: Feels Safe At This Time Assistive Devices: Walker Physical Exam Psychiatric: Orientation: alert and oriented x 3 Apperance: appropriately dressed and appropriately groomed Eye Contact: good eye contact Motor Behavior: no abnormal motor movements Speech: normal rate/rhythm/volume of speech Affect: + depressed affect Mood: + depressed mood Thought Process: goal directed thought process Thought Content: reality based without delusions Suicidal Thoughts: denies suicidal thoughts Homicidal Thoughts: denies homicidal thoughts Hallucinations: no auditory hallucinations and no visual hallucinations Cognition: attention grossly intact and language grossly intact Estimated Intelligence: consistent with education level Insight: + fair insight Judgement: + fair judgement Vital Signs (Past 24 Hours): Last Vital Signs Temp 37.1 C 08/07/22 10:47 Pulse 77 08/07/22 10:47 Resp 17 08/07/22 10:47 BP 160/75 H 08/07/22 11:26 Pulse Ox 96 08/07/22 10:47 O2 Del Method 08/07/22 10:47 Review of Systems All systems reviewed & are unremarkable except as noted in HPI & below Results & Data (PSY) Laboratory Results normal Na+ Diagnostic Findings EKG QTc normal Medications Administered Hydrocodone Bitart/Acetaminophen (Hydrocodone/Acetaminophen 10/325 Tab) 1 tab PO Q6H PRN PRN Reason: MODERATE/SEVERE PAIN Stop: 08/20/22 20:18 Last Admin: 08/07/22 11:53 Dose: 1 tab Documented By: DAVID Al Hydrox/Mg Hydrox/Simethicone (Aluminum/Magnesium Susp 30 Ml Udc) 15 ml PO Q4H PRN PRN Reason: Dyspepsia Stop: 09/05/22 20:18 Last Admin: 08/06/22 23:35 Dose: 15 ml Documented By: SHERRELL Amlodipine Besylate (Amlodipine Besylate 5 Mg Tab) 7.5 mg PO QAM [facility] Stop: 09/06/22 08:59 Last Admin: 08/07/22 08:54 Dose: 7.5 mg Documented By: DAVID Atenolol (Atenolol 25 Mg Tablet) 25 mg PO DAILY [facility] Stop: 09/06/22 08:59 Last Admin: 08/07/22 08:55 Dose: 25 mg Documented By: DAVID Atorvastatin Calcium (Atorvastatin 40 Mg Tab) 40 mg PO DAILY [facility] Stop: 09/06/22 08:59 Last Admin: 08/07/22 09:00 Dose: Not Given Documented By: DAVID Duloxetine HCl (Duloxetine Hcl 60 Mg Cap) 60 mg PO QAM [facility] Stop: 09/06/22 08:59 Last Admin: 08/07/22 08:59 Dose: Not Given Documented By: DAVID Enoxaparin Sodium (Enoxaparin Inj 40 Mg/0.4 Ml Syr) 40 mg SQ HS [facility] Stop: 09/05/22 20:59 Last Admin: 08/06/22 21:16 Dose: 40 mg Documented By: AFIA Fentanyl (Fentanyl 50 Mcg/Hr Tdsy) 50 mcg TD Q3D@1745 [facility] Stop: 08/20/22 17:44 Last Admin: 08/06/22 18:42 Dose: 50 mcg Documented By: AFIA Ferrous Sulfate (Ferrous Sulfate 325 Mg Tab) 325 mg PO DAILY@0800 [facility] Stop: 09/06/22 07:59 Last Admin: 08/07/22 09:00 Dose: Not Given Documented By: DAVID Gabapentin (Gabapentin 300 Mg Cap) 300 mg PO HS [facility] Stop: 09/05/22 20:59 Last Admin: 08/06/22 21:18 Dose: 300 mg Documented By: AFIA Lactated Ringer's (Lr) 1,000 mls @ 80 mls/hr IV .[id number] [facility] Stop: 08/07/22 21:18 Last Admin: 08/07/22 09:26 Dose: 80 mls/hr Documented By: Infusion: 08/07/22 09:21 Dose: 80 mls/hr Documented By: Admin: 08/06/22 20:51 Dose: 80 mls/hr Documented By: AFIA Lorazepam (Lorazepam 0.5 Mg Tab) 0.5 mg PO BID PRN PRN Reason: anxiety/insomnia or twitching Stop: 09/05/22 20:18 Last Admin: 08/07/22 10:19 Dose: 0.5 mg Documented By: DAVID Losartan Potassium (Losartan Potassium 50 Mg Tab) 100 mg PO QAM [facility] Stop: 09/06/22 08:59 Last Admin: 08/07/22 08:53 Dose: 100 mg Documented By: DAVID Miscellaneous (Fentanyl Patch Remove & Waste) 1 each N/A Q3D@1744 [facility] Stop: 09/05/22 17:43 Last Admin: 08/06/22 21:54 Dose: Not Given Documented By: AFIA Batres (Check Fentanyl Patch Placement) 1 each N/A QS [facility] Stop: 09/06/22 00:00 Last Admin: 08/07/22 08:55 Dose: 1 each Documented By: Admin: 08/07/22 01:13 Dose: 1 each Documented By: SHERRELL Ondansetron HCl (Ondansetron Inj 2 Mg/Ml 2 Ml Vial) 4 mg IV Q6H PRN PRN Reason: Nausea Stop: 09/05/22 20:18 Last Admin: 08/07/22 11:53 Dose: 4 mg Documented By: Admin: 08/07/22 06:07 Dose: 4 mg Documented By: HARLEEN Pantoprazole Sodium (Pantoprazole 40 Mg Tab) 40 mg PO DAILYBB [facility] Stop: 09/06/22 06:29 Last Admin: 08/07/22 08:54 Dose: 40 mg Documented By: DAVID Polyethylene Glycol (Polyethylene (Miralax) 17 Gm Pack) 17 gm PO DAILY [facility] Stop: 09/05/22 20:44 Last Admin: 08/07/22 08:55 Dose: 17 gm Documented By: Admin: 08/06/22 21:17 Dose: 17 gm Documented By: AFIA Potassium Chloride (Potassium Chloride 10 Meq Tabcr) 10 meq PO QAM [facility] Stop: 09/06/22 08:59 Last Admin: 08/07/22 09:00 Dose: Not Given Documented By: DAVID Coding Level of Care Code INP/OBS CONSULT LVL 3, 45 MIN Diagnoses Persistent depressive disorder F34.1 Nausea R11.0
[2022-08-07] MEDS: LIDOCAINE 5% 1 PATCH TD SCH (12:35)
--- NOTE | 2022-08-07 13:40 | Electrocardiogram Report ---
Test Reason : Blood Pressure : / mmHG Vent. Rate : 072 BPM Atrial Rate : 072 BPM P-R Int : 144 ms QRS Dur : 082 ms QT Int : 422 ms P-R-T Axes : 021 -09 010 degrees QTc Int : 462 ms Normal sinus rhythm Normal ECG When compared with ECG of 06-AUG-2022 11:46, No significant change was found Confirmed by Harmeet Ellsworth ([id number]) on 08/07/2022 1:40:06 PM Referred By: REFERRED SELF Confirmed By:Harmeet Ellsworth
--- NOTE | 2022-08-07 19:08 | Hospitalist Progress Note ---
Date of Service August 07, 2022 Assessment & Plan (1) Nausea: Plan 1) Nausea: (2) Constipation due to opioid therapy: (3) Abdominal pain: (4) Depression: (5) HTN (hypertension): (6) HLD (hyperlipidemia): Plan This is an 82-year-old female who has significant past medical history of diet- controlled T2DM, HTN, HLD, CKD stage III baseline creatinine 1.1-1.2, chronic interstitial cystitis, chronic neck pain, history of PE in the 30s during , depression with anxiety who presents ED secondary to intractable nausea x1 week. Intractable Nausea Chronic Abdominal pain/Neck Pain Depression admit to med tele Patient with chronic abdominal and neck pain on home regimen of fentanyl 75mcg/3d, hydrocodone acetaminophen, as needed baclofen, as needed gabapentin and Cymbalta Today patient wishes to taper off of fentanyl as feels it is not helping-placed on fentanyl 50mcg/3d CT abdomen pelvis unrevealing, patient recent underwent extensive GI work-up with upper GI and colonoscopy which was unremarkable moved bowels 3 times nausea improving advancing diet to full liquid diet Depression Psychiatry adding remeron HTN bp elevated in ED monitor when gets to floor continue home meds of amlodipine, losartan, atenolol will monitor pt/ot possible d/c in 1-2 days DVt ppx:SQ Lovenox DNR/DNI Admission and Anticipated Discharge Date Admission Date: August 06, 2022 Subjective SAYS NAUSEA IS BETTER MOVED BOWELS THREE TIMES TOLERATING LIQUID DIET AFEBRILE O CHEST PAIN OR SOB AMBULATING WITH WALKER IN THE ROOM Review of Systems Review of Systems: ROS unremarkable Physical Exam Eyes: no pallor no icterus Neck: trachea midline, no thyromegaly Respiratory: normal respiratory effort, lungs clear to auscultation Cardiovascular: RRR, no murmur, no edema Gastrointestinal (Abdomen): normal bowel sounds, soft, nontender, no hepatosplenomegaly Neurologic: alert and oriented speech clear no facial droop obeys simple commands moves extremities Results & Data Results & Data ([facility]) Vital Signs (Past 12 Hours) Vital Signs Temp Pulse Pulse Pulse Resp BP Pulse Ox 08/07/22 13:58 78 08/07/22 15:26 36.8 C 77 20 165/72 H 97 08/07/22 11:26 160/75 H 08/07/22 10:47 37.1 C 77 17 96 08/07/22 09:30 90 18 168/87 H 94 08/07/22 07:30 08/07/22 08:08 90 08/07/22 07:57 37.3 C 89 19 180/80 H 96 O2 Del Method 08/07/22 13:58 08/07/22 15:26 Room Air 08/07/22 11:26 08/07/22 10:47 Room Air 08/07/22 09:30 Room Air 08/07/22 07:30 Room Air 08/07/22 08:08 08/07/22 07:57 Room Air
[2022-08-07] MEDS: ENOXAPARIN INJ 40 MG/0.4 ML SYR SQ SCH (21:35)
[2022-08-07] MEDS: GABAPENTIN 300 MG CAP PO SCH (21:36)
[2022-08-07] MEDS: MIRTAZAPINE TAB 15 MG TAB PO SCH (21:36)
[2022-08-08] MEDS: HYDROcodone/ACETAMINOPHEN 10/325 TAB PO PRN ×4 (03:27→22:39)
[2022-08-08] MEDS: PANTOprazole 40 MG TAB PO SCH (05:41)
[2022-08-08] MEDS: CHECK fentaNYL PATCH PLACEMENT SCH ×2 (08:02→15:54)
[2022-08-08] MEDS: FERROUS SULFATE 325 MG TAB PO SCH (08:02)
[2022-08-08] MEDS: ATORVASTATIN 40 MG TAB PO SCH (08:02)
[2022-08-08] MEDS: amLODIPine BESYLATE 5 MG TAB PO SCH ×2 (08:03→09:34)
[2022-08-08] MEDS: LORazepam 0.5 MG TAB PO PRN ×2 (08:03→22:40)
[2022-08-08] MEDS: ATENOLOL 25 MG TABLET PO SCH (08:05)
[2022-08-08] MEDS: DULoxetine HCL 60 MG CAP PO SCH (08:05)
[2022-08-08] MEDS: LIDOCAINE 5% 1 PATCH TD SCH (08:05)
[2022-08-08] MEDS: LOSARTAN POTASSIUM 50 MG TAB PO SCH (08:06)
[2022-08-08] MEDS: POLYETHYLENE (MIRALAX) 17 GM PACK PO SCH (08:09)
[2022-08-08] MEDS: POTASSIUM CHLORIDE 10 MEQ TABCR PO SCH (08:09)
--- NOTE | 2022-08-08 13:54 | Hospitalist Progress Note ---
Date of Service August 08, 2022 Assessment & Plan (1) Nausea: Plan per Dr. Gr's notes with addendum: 1) Nausea: (2) Constipation due to opioid therapy: (3) Abdominal pain: (4) Depression: (5) HTN (hypertension): (6) HLD (hyperlipidemia): Plan This is an 82-year-old female who has significant past medical history of diet- controlled T2DM, HTN, HLD, CKD stage III baseline creatinine 1.1-1.2, chronic interstitial cystitis, chronic neck pain, history of PE in the 30s during , depression with anxiety who presents ED secondary to intractable nausea x1 week. Intractable Nausea Chronic Abdominal pain/Neck Pain Depression admit to [facility] Patient with chronic abdominal and neck pain on home regimen of fentanyl 75mcg/3d, hydrocodone acetaminophen, as needed baclofen, as needed gabapentin and Cymbalta Today patient wishes to taper off of fentanyl as feels it is not helping-placed on fentanyl 50mcg/3d CT abdomen pelvis unrevealing, patient recent underwent extensive GI work-up with upper GI and colonoscopy which was unremarkable 08/08 nausea resolving further prefers to stay with full liquid diet monitor closely Depression Psychiatry consulted- added Remeron tolerating so far monitor HTN BP still not at goal increase Amlodipine from 7.5mg to 10mg continue usual losartan, atenolol monitor pt/ot possible d/c tomorrow plan of care discussed with patient in detail and at length all questions answered she is understanding, agreeable, comfortable with the plan of care DVt ppx:SQ Lovenox DNR/DNI Admission and Anticipated Discharge Date Admission Date: August 07, 2022 Subjective ff up for nausea, etc seen resting in chair, comfortable states she feels better overall had 1 episode of nausea this am, resolved no abdominal pain aside from chronic L sided discomfort tolerating diet well no other symptoms Review of Systems Review of Systems: all noted and negative except for above Physical Exam Physical Exam: General- oriented x 3, not in distress, speaks in sentences with no effort or accessory muscle use Eyes- anicteric Neck- no JVD Lungs- clear breath sounds bilaterally, no rales/wheezes Heart- normal rate, regular rhythm; no murmurs Abdomen- normal bowel sounds, nondistended, soft, nontender Extremities- no pretibial edema, no calf tenderness Neuro- alert, oriented x 3; no gross focal neurologic deficits Skin- warm & dry Results & Data Results & Data ([facility]) Vital Signs (Past 12 Hours) Vital Signs Temp Pulse Pulse Resp BP Pulse Ox Pulse Ox 08/08/22 12:10 98 08/08/22 12:00 36.7 C 88 19 145/79 H 94 08/08/22 07:56 36.6 C 71 19 177/76 H 98 08/08/22 02:59 37.0 C 67 18 161/68 H 94 O2 Del Method O2 Del Method 08/08/22 12:10 Room Air 08/08/22 12:00 Room Air 08/08/22 07:56 Room Air 08/08/22 02:59 Room Air all noted and reviewed including below
[2022-08-08] MEDS: ACETAMINOPHEN 325 MG TAB PO PRN (14:40)
[2022-08-08] MEDS: ENOXAPARIN INJ 40 MG/0.4 ML SYR SQ SCH (22:36)
[2022-08-08] MEDS: MIRTAZAPINE TAB 15 MG TAB PO SCH (22:38)
[2022-08-08] MEDS: GABAPENTIN 300 MG CAP PO SCH (22:38)
[2022-08-09] MEDS: CHECK fentaNYL PATCH PLACEMENT SCH ×2 (01:08→07:57)
[2022-08-09] MEDS: ACETAMINOPHEN 325 MG TAB PO PRN ×2 (03:48→11:26)
[2022-08-09] MEDS: PANTOprazole 40 MG TAB PO SCH (05:32)
[2022-08-09 06:41] LABS: Creatinine Clr Calc Pharmacy 44.8 ml/min; Est GFR (Non-African American) 60.4 ml/min
[2022-08-09] MEDS: ATORVASTATIN 40 MG TAB PO SCH (07:52)
[2022-08-09] MEDS: FERROUS SULFATE 325 MG TAB PO SCH (07:52)
[2022-08-09] MEDS: POTASSIUM CHLORIDE 10 MEQ TABCR PO SCH (07:52)
[2022-08-09] MEDS: POLYETHYLENE (MIRALAX) 17 GM PACK PO SCH (07:56)
[2022-08-09] MEDS: LIDOCAINE 5% 1 PATCH TD SCH (07:56)
[2022-08-09] MEDS: amLODIPine BESYLATE 5 MG TAB PO SCH (07:57)
[2022-08-09] MEDS: HYDROcodone/ACETAMINOPHEN 10/325 TAB PO PRN (07:57)
[2022-08-09] MEDS: ATENOLOL 25 MG TABLET PO SCH (07:57)
[2022-08-09] MEDS: LOSARTAN POTASSIUM 50 MG TAB PO SCH (07:57)
[2022-08-09] MEDS: DULoxetine HCL 60 MG CAP PO SCH (07:57)
--- NOTE | 2022-08-09 17:20 | Hospitalist Progress Note ---
Date of Service August 09, 2022 Assessment & Plan (1) Nausea: Plan per Dr. Gr's notes with addendum: 1) Nausea: (2) Constipation due to opioid therapy: (3) Abdominal pain: (4) Depression: (5) HTN (hypertension): (6) HLD (hyperlipidemia): Plan This is an 82-year-old female who has significant past medical history of diet- controlled T2DM, HTN, HLD, CKD stage III baseline creatinine 1.1-1.2, chronic interstitial cystitis, chronic neck pain, history of PE in the 30s during , depression with anxiety who presents ED secondary to intractable nausea x1 week. Intractable Nausea Chronic Abdominal pain/Neck Pain Depression Patient with chronic abdominal and neck pain on home regimen of fentanyl 75mcg/3d, hydrocodone acetaminophen, as needed baclofen, as needed gabapentin and Cymbalta Today patient wishes to taper off of fentanyl as feels it is not helping-placed on fentanyl 50mcg/3d CT abdomen pelvis unrevealing, patient recent underwent extensive GI work-up with upper GI and colonoscopy which was unremarkable Fentanyl decreased from 75 to 50 mcg per patch nausea resolved Follow-up with primary care physician in 1 week Depression Psychiatry consulted- added Remeron tolerating well Outpatient follow-up HTN BP not at goal Amlodipine increased from 7.5mg to 10mg Blood pressure improving continue usual losartan, atenolol monitor plan of care discussed with patient in detail and at length all questions answered she is understanding, agreeable, comfortable with the plan of care Admission and Anticipated Discharge Date Admission Date: August 07, 2022 Subjective Follow-up for nausea, etc. Seen resting in bed, comfortable, not in distress States she feels much better overall Nausea has resolved No abdominal pain except for usual chronic left lower quadrant discomfort Mood is okay no chest pain, dyspnea, palpitations, dizziness No other symptoms Review of Systems Review of Systems: all noted and negative except for above Physical Exam Physical Exam: General- oriented x 3, not in distress, speaks in sentences with no effort or accessory muscle use Eyes- anicteric Neck- no JVD Lungs- clear breath sounds bilaterally, no rales/wheezes Heart- normal rate, regular rhythm; no murmurs Abdomen- normal bowel sounds, nondistended, soft, nontender Extremities- no pretibial edema, no calf tenderness Neuro- alert, oriented x 3; no gross focal neurologic deficits Skin- warm & dry Results & Data Results & Data ([facility]) Vital Signs (Past 12 Hours) Vital Signs Temp Pulse Pulse Resp BP Pulse Ox O2 Del Method 08/09/22 12:22 37.2 C 89 77 18 140/67 96 08/09/22 11:29 37.2 C 77 18 140/67 96 Room Air 08/09/22 07:20 37.0 C 75 18 179/71 H 94 Room Air all noted and reviewed including below
--- NOTE | 2022-08-09 17:28 | Discharge Summary ---
Discharge Summary Date of Service August 09, 2022 Notes For Next Care Provider Fentanyl patch decreased from 75 mcg to 50 mcg Remeron 7.5 mg daily started Amlodipine increased from 7.5 mg to 10 mg daily Medication Changes From Visit Fentanyl patch decreased from 75 mcg to 50 mcg Remeron 7.5 mg daily started Amlodipine increased from 7.5 mg to 10 mg daily Admission HPI Per Admitting Provider This is an 82-year-old female who has significant past medical history of diet- controlled T2DM, HTN, HLD, CKD stage III baseline creatinine 1.1-1.2, chronic interstitial cystitis, chronic neck pain, history of PE in the 30s during , depression with anxiety who presents ED secondary to intractable nausea x1 week. Patient admits to chronic history of chronic neck pain, chronic abdominal pain and nausea. She has noticed increased nausea for the past week, inability to tolerate oral liquid and solid and increasing chronic abdominal pain. She states she, "never feels good." She is tired of dealing with the pain. She admits to being depressed and feels it is always worse this time year. She denies any recent inciting factors or events just that, "I never feel good." She denies any suicidal or homicidal ideations. She denies any fever, chills, sweats, lightheadedness, chest pain, shortness of breath, cough, vomiting, hematemesis, melena, dysuria or hematochezia. Her last bowel movement was 4 days ago. She is urinating without difficulty. She does complain of dry heaves with any intake. She was able to keep down blood pressure and pain medication this morning. She does have a fentanyl patch in place. She is on 75 mcg every 3 days but today cut it in half because she wants to wean off of it. She does not feel it helps. She does follow with GI and recently underwent work-up of colonoscopy and upper GI which was unremarkable. She has had multiple CT scans of abdomen pelvis. Per patient GI feels her symptoms are likely related to adhesions. Overall appetite has been poor. Admission Exam Per Admitting Provider Constitutional: WD/WN, Elderly, poor eye contact, flat affect, vitals as above, NAD, sitting up in bed, answers questions appropriately Head: Normocephalic, Atraumatic Eyes: PERRL, conjunctivae normal, anicteric sclerae ENMT: external ear and nose normal, oropharynx normal dry membranes Neck: trachea midline, no thyromegaly normal visual inspection Respiratory: normal respiratory effort, lungs clear to auscultation, no wheeze, rales, rhonchi. Normal insp/exp effort, no accessory muscle use Cardiovascular: RRR, 1/6 MARIA D, no edema Vessels: no JVD or carotid bruit Chest: normal inspection of chest Abdomen: normal bowel sounds, soft, pain to LLQ to palpation but no rebound, guarding or tenderness, no hepatosplenomegaly Musculoskeletal: no cyanosis or clubbing, extremities motor strength 5/5 Skin: no rashes, warm and dry normal turgor Neurologic: PERRL, EOMI, accommodation nl, no face palsy, no dysarthria CN's II-XI intact bilaterally and moves all extremities Psychiatric: A+Ox3, euthymic affect Lymphatic: no cervical or axillary lymphadenopathy : deferred Principal Dx & Hospital Course #1 = Principal Diagnosis (1) Nausea: Plan per Dr. Gr's notes with addendum: This is an 82-year-old female who has significant past medical history of diet- controlled T2DM, HTN, HLD, CKD stage III baseline creatinine 1.1-1.2, chronic interstitial cystitis, chronic neck pain, history of PE in the 30s during , depression with anxiety who presents ED secondary to intractable nausea x1 week. Intractable Nausea Chronic Abdominal pain/Neck Pain Depression Patient with chronic abdominal and neck pain on home regimen of fentanyl 75mcg/3d, hydrocodone acetaminophen, as needed baclofen, as needed gabapentin and Cymbalta Today patient wishes to taper off of fentanyl as feels it is not helping-placed on fentanyl 50mcg/3d CT abdomen pelvis unrevealing, patient recent underwent extensive GI work-up with upper GI and colonoscopy which was unremarkable Fentanyl decreased from 75 to 50 mcg per patch nausea resolved Follow-up with primary care physician in 1 week Depression Psychiatry consulted- added Remeron tolerating well Outpatient follow-up HTN BP not at goal Amlodipine increased from 7.5mg to 10mg Blood pressure improving continue usual losartan, atenolol monitor plan of care discussed with patient in detail and at length all questions answered she is understanding, agreeable, comfortable with the plan of care Discharge Exam General- oriented x 3, not in distress, speaks in sentences with no effort or accessory muscle use Eyes- anicteric Neck- no JVD Lungs- clear breath sounds bilaterally, no rales/wheezes Heart- normal rate, regular rhythm; no murmurs Abdomen- normal bowel sounds, nondistended, soft, nontender Extremities- no pretibial edema, no calf tenderness Neuro- alert, oriented x 3; no gross focal neurologic deficits Skin- warm & dry Updated Medication List Medication Instructions Recorded Confirmed Type atenolol 50 mg tablet 25 mg PO DAILY 09/04/20 08/06/22 History calcium glycerophosphate 65 mg 65 mg PO QID PRN WHEN DRINKS 09/04/20 08/06/22 History tablet COFFEE OR TEA. gabapentin 300 mg capsule 300 mg PO HS 09/04/20 08/06/22 History hydrocodone 10 mg-acetaminophen 1 tab PO Q6H PRN Breakthrough Pain 09/04/20 08/06/22 History 325 mg tablet losartan 100 mg tablet 100 mg PO QAM 09/04/20 08/06/22 History polyethylene glycol 3350 17 gram 17 g PO DAILY 09/04/20 08/06/22 History oral powder packet epinephrine 0.3 mg/0.3 mL 0.3 mg (0.3 mL) IM Q1H PRN 09/26/20 08/06/22 Rx injection, auto-injector (EpiPen) anaphylaxis #1 ea naproxen 500 mg tablet (Naprosyn) 500 mg PO BID PRN Pain 11/23/20 08/06/22 History atorvastatin 40 mg tablet 40 mg PO DAILY 08/06/22 08/06/22 History baclofen 10 mg tablet 10 mg PO HS PRN Pain, Moderate 08/06/22 08/06/22 History duloxetine 60 mg capsule,delayed 60 mg PO QAM 08/06/22 08/06/22 History release ferrous sulfate 325 mg (65 mg 325 mg PO DAILY 08/06/22 08/06/22 History iron) tablet furosemide 20 mg tablet 40 mg PO QAM PRN Edema 08/06/22 08/06/22 History lorazepam 0.5 mg tablet 0.5 mg PO BID PRN anxiety/insomnia 08/06/22 08/06/22 History or twitching ondansetron 4 mg disintegrating 4 mg PO Q8H PRN Nausea 08/06/22 08/06/22 History tablet potassium chloride 10 mEq 10 meq PO QAM 08/06/22 08/06/22 History capsule,extended release amlodipine 10 mg tablet 10 mg PO DAILY #30 tabs 08/09/22 Rx fentanyl 50 mcg/hr transdermal 50 mcg transdermal Q3D@1745 14 08/09/22 Rx patch days #6 ea mirtazapine 15 mg tablet 7.5 mg PO HS 30 days #15 tabs 08/09/22 Rx pantoprazole 40 mg tablet,delayed 40 mg PO DAILYBB 30 days #30 tabs 08/09/22 Rx release Hospital Stay Data Consultations 08/06/22 16:55 Consult Psychiatry Routine Diagnostic Imagining Performed 08/06/22 11:49 CT abd pelvis wo con Stat CT head/brain wo con Stat COMPARISON STUDY: Abdomen and pelvis CT 11/23/2020. FINDINGS: Mild dependent changes seen within the lung bases. No pneumoperitoneum. No pneumatosis. No acute fractures identified. The unenhanced liver, spleen, gallbladder, pancreas, and adrenal glands unremarkable. No renal or ureteral stones. No hydronephrosis. No retroperitoneal lymphadenopathy. Normal caliber abdominal aorta with mild calcified plaque. No pelvic lymphadenopathy or pelvic free fluid. The bladder is unremarkable. Mild pelvic floor collapse again noted. Prior hysterectomy. Suboptimal evaluation for bowel pathology due to the lack of intravenous and oral contrast. However, there is no definite bowel wall thickening or obstruction. Normal appendix. Moderate well- formed stool within the colon. A few colonic diverticula. No evidence for acute diverticulitis. IMPRESSION: 1. No renal or ureteral stones. No hydronephrosis. 2. No bowel wall thickening or obstruction. 3. Normal appendix. 4. Colonic diverticulosis. No evidence for acute diverticulitis. ACT 112: Negative or not required by law. Electronically signed by: Moo Barber M.D. 08/06/2022 1:16 PM Pending Results Patient Have Any Pending Studies at Discharge: No Discharge Instructions Given to Patient (Per Discharging Provider) PLEASE REFER TO YOUR NEW MEDICATION LIST AND FOLLOW INSTRUCTIONS CAREFULLY. YOUR NEW MEDICATIONS INCLUDE: Fentanyl patch has been reduced from 75mcg to 50mcg daily. Amlodipine increased from 7.5mg to 10mg daily. Remeron 7.5mg daily added for mood. PLEASE CALL YOUR PRIMARY CARE PHYSICIAN OR RETURN TO THE ER IF WITH WORSENING OF SYMPTOMS, INCLUDING abdominal pain, nausea/vomiting, fever/chills, worsening depression/anxiety, etc FOLLOW UP WITH PRIMARY CARE PHYSICIAN this Wednesday as scheduled. Total Time Total Time Spent Total Time Spent (In Minutes): >30 mins
[2022-08-09] MEDS ORDERED: fentaNYL 50 MCG/HR TDSY TD SCH (18:00)
== END 2022-08-09 13:25 | disposition home health service (06) | DRG 392 ==
LOC: EDINP 11:24 → ED 11:24 → 2N 20:20 → SUATTDRO 08-07 21:04